=== PATIENT | female | born 1960 | race Caucasian/White ===

== ENCOUNTER → 2020-12-06 07:04 | Outpatient (CLI) | payer OTHER, MEDICAID, SELFPAY ==
[2020-12-06 08:36] LABS: Alanine Aminotransferase 21 IU/L (<35); Albumin 4.5 g/dL (3.5-5.0); Albumin Globulin Ratio 1.7 (1.0-2.8); Alkaline Phosphatase 68 U/L (38-126); Aspartate Aminotransferase 30 IU/L (14-36); BUN Creatinine Ratio 17.7 (6-22); Bilirubin Total 0.6 mg/dL (0.2-1.3); Blood Urea Nitrogen 11 mg/dL (7-17); Carbon Dioxide 32 mmol/L (22-32); Chloride 107 mmol/L (98-107); Cholesterol 218 mg/dL (140-199); Estimated Glomerular Filt Rate > 60.0 mL/min (>60); Globulin 2.7 g/dL (1.7-4.1); Glucose 106 mg/dL (70-100); HEMOLYSIS < 15 (0-50); Potassium 5.2 mmol/L (3.4-5.1); Sodium 139 mmol/L (137-145); Total Protein 7.2 g/dL (6.3-8.2); Triglycerides 63 mg/dL (35-150)
[2020-12-06 08:45] LABS: HDL Cholesterol 120 mg/dL (40-60); LDL Cholesterol Calculated 85 mg/dL (<100)
== END ==
PROVIDERS: PCP Registered Nurse; Referring Provider Registered Nurse; Visit Provider Registered Nurse
DX: I65.29 Occlusion and stenosis of unspecified carotid artery (principal); Z82.49 Family history of ischemic heart disease and other diseases of the circulatory system; R53.83 Other fatigue
CPT/HCPCS: 36415; 80053; 80061

== ENCOUNTER → 2020-12-08 07:01 | Outpatient (CLI) | payer OTHER, MEDICAID, SELFPAY ==
--- NOTE | 2020-12-08 07:03 | DI.US.S_ITS ---
PROCEDURE: US CAROTID DOPPLER BI INDICATIONS: POSSIBLE PLAQUE TECHNIQUE: Color and pulse Doppler interrogation was performed of both carotid systems, with image documentation and velocity measurements. COMPARISON: None. FINDINGS: Stenosis calculations are based on SRU (Society of Radiologists in Ultrasound) criteria. Right side: Common Carotid Artery PSV: - Distal: 89 cm/s Internal Carotid Artery PSV - 73 cm/s EDV- 34 cm/s External Carotid Artery PSV- Proximal: 87 cm/s ICA/CCA PSV- Ratio: 0.8 Lombardo scale imaging description: No plaque. Widely patent vessels. Percent internal carotid artery stenosis: None . Vertebral artery: Flow direction is antegrade. Left side: Common Carotid Artery PSV- Distal: 101 cm/s Internal Carotid Artery PSV- 74 cm/s EDV- 33 cm/s External Carotid Artery PSV- Proximal: 81 cm/s ICA/CCA PSV- Ratio: 0.7 Lombardo scale imaging description: No plaque. Widely patent vessel. Percent internal carotid artery stenosis: None . Vertebral artery: Flow direction is antegrade. IMPRESSION: Unremarkable carotid ultrasound. Dictated by: Avery Wyatt M.D. on 12/08/2020 at 8:51 Approved by: Avery Wyatt M.D. on 12/08/2020 at 8:54
== END ==
PROVIDERS: PCP Registered Nurse; Referring Provider Registered Nurse; Visit Provider Registered Nurse
DX: I65.29 Occlusion and stenosis of unspecified carotid artery (principal); Z82.49 Family history of ischemic heart disease and other diseases of the circulatory system
CPT/HCPCS: 93880

== ENCOUNTER 2021-06-06 17:34 | Emergency (ER) | payer OTHER, MEDICAID, SELFPAY ==
[2021-06-06 17:42] VITALS: BP 136/84; PULSE 104; RESP 18; TEMP 36.9; O2SAT 99; BMI 23.1
--- NOTE | 2021-06-06 18:11 | DI.CT.S_ITS ---
PROCEDURE: CT HEAD/BRAIN WO CON INDICATIONS: Hit on R side head with metal sprinkler TECHNIQUE: Noncontrast 4.5 mm thick angled axial sections acquired from the foramen magnum to the vertex, with coronal and sagittal reformats. For radiation dose reduction, the following was used: automated exposure control, adjustment of mA and/or kV according to patient size. COMPARISON: [facility], , CAROTID DOPPLER , 12/08/2020, 7:26. FINDINGS: Image quality: Excellent. CSF spaces: Basal cisterns are patent. No extra-axial fluid collections. The ventricles are symmetric in size and shape. Brain: No intracranial bleeds or masses. There is mild cerebral volume loss for age, with resultant ventricular and sulcal prominence. There are mild periventricular and deep white matter chronic small vessel ischemic changes. There is intracranial internal carotid artery atherosclerosis. Skull and face: Calvarium and visualized facial bones appear intact, without suspicious lesions. Sinuses: Visualized sinuses and mastoids are clear. IMPRESSION: 1. No acute intracranial abnormalities. Dictated by: Shanell Gore M.D. on 06/06/2021 at 17:32 Approved by: Shanell Gore M.D. on 06/06/2021 at 17:33
--- NOTE | 2021-06-06 20:52 | ED.HEATRA ---
HPI - Head Injury General Chief complaint: Head Injury Stated complaint: head injury Time Seen by Provider: 06/06/21 20:20 Source: patient Mode of arrival: Ambulatory Limitations: no limitations History of Present Illness HPI Narrative: [place]. Was picking up a sprinkler under a lot of water pressure and it was weeping around in the air and struck her on the right parietal scalp. No loss of consciousness. Is not on blood thinners. No nausea or vomiting no confusion no headache no vision changes. No numbness tingling or weakness or ataxia. Patient was concerned because her spouse had of a stroke. Patient very anxious. Related Data Home Medications Medication Instructions Recorded Confirmed No Known Home Medications 12/04/20 12/04/20 Allergies Allergy/AdvReac Type Severity Reaction Status Date / Time No Known Drug Allergies Allergy Unverified 12/04/20 08:07 Review of Systems Review of Systems Narrative: GENERAL: Denies chills, fatigue, malaise, fever, sweats. HEENT: Denies sinus pain, ear pain, sore throat RESPIRATORY: Denies dyspnea, cough CARDIOVASCULAR: Denies chest pain, palpitations GASTROINTESTINAL: Denies nausea, vomiting, abdominal pain : Denies dysuria, frequency, hematuria MUSCULOSKELETAL: Complaint muscle or bony pain SKIN: Denies rash, skin lesions NEUROLOGIC: Denies weakness, numbness Patient History Medical History Fractures (~2010) Osteopenia (~2009) Surgical History Anesthesia History of surgery on arm (~07/2011) Family History Father Hypertension Atrial fibrillation Mother Osteoporosis Social History Smoking Status: Never smoker Smoking Status: Never smoker alcohol intake frequency: a few times a week Alcohol type: wine Substance Use Type: does not use Exam Narrative Exam Narrative: GENERAL: in no distress, not toxic not dyspneic HEAD: Normocephalic. Mild tenderness and edema to the right parietal scalp. Skin is intact otherwise. No bruising. No crepitus or step-off. EYES: Pupils equal round No scleral icterus. No injection no discharge ENT: Mucous membranes moist. NECK: Trachea midline. No midline tenderness or step-off. CARDIOVASCULAR: Regular rate and rhythm without murmurs RESPIRATORY: Clear to auscultation. Breath sounds equal bilaterally. No wheezes, rales, or rhonchi. GASTROINTESTINAL: Abdomen soft, non-tender EXTREMITIES: No gross deformities. BACK: No flank tenderness. NEURO: AOx4. Clear speech no facial droop steady self gait no foot drop. Light touch intact to bilateral face hands and feet. 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 Strong bilateral patellar reflexes. Steady Romberg, negative pronator drift SKIN: Warm and dry PSYCH: Not anxious, is cooperative Initial Vital Signs Initial Vital Signs: Vital Signs Temperature 98.4 F 06/06/21 17:42 Pulse Rate 104 H 06/06/21 17:42 Respiratory Rate 18 06/06/21 17:42 Blood Pressure 136/84 06/06/21 17:42 Pulse Oximetry 99 06/06/21 17:42 Course Course Course Narrative: No new issues during course of stay. Orders Ordered: ED Orders 06/06/21 18:11 CT head/brain wo con Stat Reevaluation(s) Reevaluation #1: Reviewed results with patient. Agrees with treatment plan. She desires discharge home. Time: 21:03 Vital Signs Vital signs: Vital Signs - 8 hr 06/06/21 17:42 Temperature 98.4 F Pulse Rate 104 H Respiratory Rate 18 Blood Pressure 136/84 Pulse Oximetry 99 MDM - Head Injury Differential Diagnosis Differential diagnosis: Likely concussion without loss of consciousness, epidural hematoma, closed head injury, subdural hematoma and other (Scalp contusion) Imaging Data CT scan - head: Radiologist's Impression: [address] [id number] Scan ReportSigned Patient: Carolina Elder KMR#: [id number]: [id number]:[id number]/Sex: 61 / FDate of Service: 06/06/21Loc: EDAccession Number: [id number] Procedure: CT head/brain wo con Ordering Provider: Asif Major MD PROCEDURE: CT HEAD/BRAIN WO CON INDICATIONS: Hit on R side head with metal sprinkler TECHNIQUE: Noncontrast 4.5 mm thick angled axial sections acquired from the foramen magnum to the vertex, with coronal and sagittal reformats. For radiation dose reduction, the following was used: automated exposure control, adjustment of mA and/or kV according to patient size. COMPARISON: [facility], , CAROTID DOPPLER , 12/08/2020, 7:26. FINDINGS: Image quality: Excellent. CSF spaces: Basal cisterns are patent. No extra-axial fluid collections. The ventricles are symmetric in size and shape. Brain: No intracranial bleeds or masses. There is mild cerebral volume loss for age, with resultant ventricular and sulcal prominence. There are mild periventricular and deep white matter chronic small vessel ischemic changes. There is intracranial internal carotid artery atherosclerosis. Skull and face: Calvarium and visualized facial bones appear intact, without suspicious lesions. Sinuses: Visualized sinuses and mastoids are clear. IMPRESSION: 1. No acute intracranial abnormalities. Dictated by: Shanell Gore M.D. on 06/06/2021 at 17:32 Approved by: Shanell Gore M.D. on 06/06/2021 at 17:33 [facility] Narrative Medical decision making narrative: Appropriate for discharge home. Exam and imaging reassuring. Blood pressure noted however patient states she is very anxious. She has to get back to her 85-year-old mother to take care of her at home. Neurovascular intact. No altered mental status. Return precautions reviewed with patient. Discharge Plan Departure Patient Disposition: Home Clinical Impression: Contusion of scalp Qualifiers: Encounter type: initial encounter Qualified Code(s): S00.03XA - Contusion of scalp, initial encounter Instructions: DI for Contusion, DI for Closed Head Injury Activity Restrictions/Additional Instructions: Return if worsening questions or concerns. See family doctor for recheck of your blood pressure in a week. May use ibuprofen or Tylenol for pain to the scalp. May also use cool packs to scalp for reducing swelling. Prescriptions: No Action No Known Home Medications RF: 0 Referrals: Kayy Early ARNP [Primary Care Provider] -
[2021-06-06 21:02] VITALS: BP 162/82; PULSE 89; RESP 18; O2SAT 99
== END 2021-06-06 21:06 | disposition home or self-care (01) ==
PROVIDERS: Emergency Provider Emergency Medicine; PCP Registered Nurse
DX: S00.03XA Contusion of scalp, initial encounter (principal); W22.8XXA Striking against or struck by other objects, initial encounter; Y92.79 Other farm location as the place of occurrence of the external cause
CPT/HCPCS: 70450; 99281; 99284

== ENCOUNTER → 2022-01-10 06:55 | Outpatient (CLI) | payer OTHER, MEDICAID, SELFPAY ==
[2022-01-10 08:18] LABS: Alanine Aminotransferase 20 IU/L (<35); Albumin 4.7 g/dL (3.5-5.0); Albumin Globulin Ratio 1.5 (1.0-2.8); Alkaline Phosphatase 64 U/L (38-126); Aspartate Aminotransferase 32 IU/L (14-36); BUN Creatinine Ratio 20.3 (6-22); Bilirubin Total 0.8 mg/dL (0.2-1.3); Blood Urea Nitrogen 13 mg/dL (7-17); Calcium 9.4 mg/dL (8.4-10.2); Carbon Dioxide 32 mmol/L (22-32); Chloride 104 mmol/L (98-107); Cholesterol 217 mg/dL (140-199); Estimated Glomerular Filt Rate > 60.0 mL/min (>60); Globulin 3.1 g/dL (1.7-4.1); Glucose 103 mg/dL (80-110); HDL Cholesterol 106 mg/dL (40-60); HEMOLYSIS < 15 (0-50); LDL Cholesterol Calculated 97 mg/dL (<100); Potassium 3.9 mmol/L (3.4-5.1); Sodium 140 mmol/L (137-145); Total Protein 7.8 g/dL (6.3-8.2); Triglycerides 69 mg/dL (35-150)
== END ==
PROVIDERS: PCP Registered Nurse; Referring Provider Registered Nurse; Visit Provider Registered Nurse
DX: E78.5 Hyperlipidemia, unspecified (principal); R89.9 Unspecified abnormal finding in specimens from other organs, systems and tissues; Z82.49 Family history of ischemic heart disease and other diseases of the circulatory system
CPT/HCPCS: 36415; 80053; 80061

== ENCOUNTER → 2022-07-08 11:13 | Outpatient (CLI) | payer OTHER, MEDICAID, SELFPAY | PROVIDERS: PCP Registered Nurse; Visit Provider Registered Nurse | DX: R30.0 Dysuria (principal) | CPT/HCPCS: 81002; 87077; 87086; 87186 ==

== ENCOUNTER → 2022-07-25 11:08 | Outpatient (CLI) | payer OTHER, MEDICAID, SELFPAY ==
[2022-07-25 12:42] LABS: Bilirubin Urine UA NEGATIVE (NEGATIVE); Color Urine UA YELLOW; Glucose Urine UA NEGATIVE (Negative); Ketones Urine UA NEGATIVE (NEGATIVE); Leukocyte Esterase Urine UA 2+ (NEGATIVE); Nitrite Urine UA NEGATIVE (Negative); Occult Blood Urine UA 3+ (Negative); Protein Urine UA NEGATIVE (Negative); Specific Gravity Urine UA 1.015 (1.000-1.035); Urobilinogen Urine UA 0.2 E.U./dL (0.2)
[2022-07-25 13:02] LABS: Amorphous Sediment Urine 1+; Appearance Urine UA Slightly Cloudy; RBC Urine 30-100/HPF (0-5/HPF); Squamous Epithelial Cell Urine 1-5 /HPF (0-5/HPF); WBC Urine 30-100/HPF (0-5/HPF); pH Urine UA 5.5 (4.5-8.0)
[2022-07-25 13:03] LABS: Bacteria Urine Occasional (0-1); Culture Indicated Urine Specimen Cultured; Mucus Urine 1+ (Negative)
== END ==
PROVIDERS: PCP Registered Nurse; Referring Provider Family Medicine; Visit Provider Family Medicine
DX: N30.01 Acute cystitis with hematuria (principal)
CPT/HCPCS: 81001; 87086

== ENCOUNTER → 2022-08-23 12:36 | Outpatient (CLI) | payer OTHER, MEDICAID, SELFPAY ==
[2022-08-23 13:17] LABS: Appearance Urine UA CLEAR; Bilirubin Urine UA NEGATIVE (NEGATIVE); Color Urine UA YELLOW; Glucose Urine UA NEGATIVE (Negative); Ketones Urine UA NEGATIVE (NEGATIVE); Leukocyte Esterase Urine UA 2+ (NEGATIVE); Nitrite Urine UA NEGATIVE (Negative); Occult Blood Urine UA 3+ (Negative); Protein Urine UA TRACE (Negative); Specific Gravity Urine UA <=1.005 (1.000-1.035); Urobilinogen Urine UA 0.2 E.U./dL (0.2)
[2022-08-23 13:33] LABS: Bacteria Urine Few (2-10); Culture Indicated Urine Specimen Cultured; RBC Urine 10-30/HPF (0-5/HPF); Squamous Epithelial Cell Urine 0-1 /HPF (0-5/HPF); WBC Urine 10-30/HPF (0-5/HPF)
== END ==
PROVIDERS: PCP Family Medicine; Referring Provider Family Medicine; Visit Provider Family Medicine
DX: N30.01 Acute cystitis with hematuria (principal)
CPT/HCPCS: 81001; 87086

== ENCOUNTER → 2022-09-17 08:18 | Outpatient (CLI) | payer OTHER, MEDICAID, SELFPAY | PROVIDERS: PCP Family Medicine; Visit Provider Urology | DX: N39.0 Urinary tract infection, site not specified (principal) | CPT/HCPCS: 87086 ==

== ENCOUNTER → 2022-09-17 12:08 | Outpatient (CLI) | payer OTHER, MEDICAID, SELFPAY ==
[2022-09-17 15:59] LABS: BUN Creatinine Ratio 15.5 (6-22); Blood Urea Nitrogen 9 mg/dL (7-17); Calcium 9.6 mg/dL (8.4-10.2); Carbon Dioxide 27 mmol/L (22-32); Chloride 103 mmol/L (98-107); Estimated Glomerular Filt Rate > 60 mL/min (>60); Glucose 100 mg/dL (80-110); HEMOLYSIS < 15 (0-50); Potassium 4.3 mmol/L (3.4-5.1); Sodium 139 mmol/L (137-145)
== END ==
PROVIDERS: Urology; PCP Family Medicine; Referring Provider Specialist; Visit Provider Specialist
DX: N30.01 Acute cystitis with hematuria (principal); R89.9 Unspecified abnormal finding in specimens from other organs, systems and tissues
CPT/HCPCS: 36415; 80048; 81002; 87077; 87086; 87186; 99214

== ENCOUNTER → 2022-09-25 12:45 | Outpatient (CLI) | payer OTHER, MEDICAID, SELFPAY ==
--- NOTE | 2022-09-25 12:47 | DI.CT.S_ITS ---
PROCEDURE: CT IVP A/P W/WO INDICATIONS: Recurring urinary tract infections/microscopic hematuria TECHNIQUE: Optional 5 mm thick noncontrast images acquired from the diaphragm to the symphysis pubis. After the administration of intravenous contrast, 5 mm thick images acquired from the diaphragm to the symphysis pubis after a 10-minute delay. 2 mm thick coronal and sagittal reformats were then performed of the kidneys and ureters. For radiation dose reduction, the following was used: automated exposure control, adjustment of mA and/or kV according to patient size. COMPARISON: None. FINDINGS: Image quality: Excellent. Lung bases: Lung bases are clear. Heart size is normal. Urinary system: Both kidneys are normal in size. There is a 1.1 cm calculus within the right renal pelvis which measures approximately 900 Hounsfield units in density. There is mild right pelviectasis. No left nephrolithiasis. The kidneys demonstrate symmetric enhancement bilaterally. No suspicious mass lesions. The ureters demonstrate normal course and caliber. No ureterolithiasis. There is mild thickening of the urothelium of the right renal pelvis. No bladder calculi. Other solid organs: Liver is normal in size and enhancement. Gallbladder is mildly contracted. . Biliary system is non dilated. Pancreas enhances normally. Spleen is normal in size and enhancement. No adrenal nodules. Peritoneum and bowel: Bowel loops demonstrate normal wall thickness and caliber. There are scattered sigmoid diverticula. No evidence for diverticulitis. The appendix is thin walled and gas filled. No free fluid or air. Nodes and vessels: No retroperitoneal or mesenteric adenopathy by size criteria. Aorta and inferior vena cava are normal in size. Abdominal wall: No ventral hernias. Pelvis: No pathologic free pelvic fluid. No inguinal hernias or adenopathy. Bones: No suspicious bony lesions. No vertebral body compression fractures. There are displaced bilateral L5-S1 pars interarticularis defects with grade 2 spondylolisthesis. IMPRESSION: 1. Nonobstructing right nephrolithiasis. No left nephrolithiasis, hydroureter, ureterolithiasis, or bladder calculi. 2. Thickening of the urothelium of the right pelvis which may be reactive and associated with the renal pelvic calculus. However, neoplasm cannot be excluded. 3. No suspicious enhancement or renal mass lesions. 4. Diverticulosis. No acute diverticulitis. Normal appendix. 5. Spondylolysis and spondylolisthesis at L5-S1. Dictated by: Kimi Solorzano M.D. on 09/25/2022 at 15:32 Approved by: Kimi Solorzano M.D. on 09/25/2022 at 15:37
== END ==
PROVIDERS: PCP Family Medicine; Referring Provider Urology; Visit Provider Urology
DX: N39.0 Urinary tract infection, site not specified (principal); R31.9 Hematuria, unspecified; N20.0 Calculus of kidney; K57.90 Diverticulosis of intestine, part unspecified, without perforation or abscess without bleeding; M47.817 Spondylosis without myelopathy or radiculopathy, lumbosacral region; M43.17 Spondylolisthesis, lumbosacral region
CPT/HCPCS: 74178; Q9967

== ENCOUNTER → 2022-09-27 15:04 | Outpatient (CLI) | payer OTHER, MEDICAID, SELFPAY ==
--- NOTE | 2022-09-27 16:01 | DI.RAD.S_ITS ---
PROCEDURE: XR KUB INDICATIONS: Right kidney stone TECHNIQUE: One view of the abdomen acquired. COMPARISON: [facility], CT, CT IVP A/P W/WO, 09/25/2022, 12:51. FINDINGS: Surgical changes and devices: None. Bowel: Bowel gas pattern is normal except for generalized colonic obstipation. Soft tissues: No suspicious abdominal calcifications. Visualized solid organ contours appear normal in size. Bones: No suspicious bony lesions. IMPRESSION: Generalized colonic obstipation. The right-sided urinary tract stone seen by CT scanning 2 days ago cannot be clearly visualized likely due to overlying colonic obstipation. What appears to be a left-sided pelvic phlebolith is noted, rounded and likely previously present on CT scanning. Dictated by: Bert Stern M.D. on 09/27/2022 at 16:26 Approved by: Bert Stern M.D. on 09/27/2022 at 16:27
== END ==
PROVIDERS: PCP Family Medicine; Referring Provider Urology; Visit Provider Urology
DX: N30.01 Acute cystitis with hematuria (principal); N20.0 Calculus of kidney; K59.09 Other constipation; N95.2 Postmenopausal atrophic vaginitis
CPT/HCPCS: 74018; 81002; 87086; 99214

== ENCOUNTER → 2022-10-02 07:41 | Outpatient (CLI) | payer OTHER, MEDICAID, SELFPAY ==
--- NOTE | 2022-10-02 07:42 | DI.RAD.S_ITS ---
PROCEDURE: XR KUB INDICATIONS: kidney stone TECHNIQUE: One view of the abdomen acquired. COMPARISON: [facility], CT, CT IVP A/P W/WO, 09/25/2022, 12:51. [facility], CR, XR KUB, 09/27/2022, 16:12. FINDINGS: 1.6 cm calcification projecting over the right renal pelvis may represent the right renal pelvis stone visualized on recent CT. Nonobstructive bowel gas pattern. IMPRESSION: 1.6 cm calcification projecting over the right renal pelvis may represent the right renal pelvis stone visualized on recent CT. Dictated by: Elvis Lujan M.D. on 10/02/2022 at 11:34 Approved by: Elvis Lujan M.D. on 10/02/2022 at 11:38
== END ==
PROVIDERS: PCP Family Medicine; Referring Provider Urology; Visit Provider Urology
DX: N20.0 Calculus of kidney (principal); N30.01 Acute cystitis with hematuria
CPT/HCPCS: 74018

== ENCOUNTER → 2022-10-07 09:44 | Outpatient (CLI) | payer OTHER, MEDICAID, SELFPAY ==
[2022-10-07 11:03] LABS: COVID19 -Nasal RAPID POSITIVE (Negative)
== END ==
PROVIDERS: PCP Family Medicine; Visit Provider Urology
DX: Z20.822 Contact with and (suspected) exposure to COVID-19 (principal)
CPT/HCPCS: 87635; C9803

== ENCOUNTER 2022-10-08 10:57 | Day surgery (SDC) | payer OTHER, MEDICAID, SELFPAY ==
[2022-10-07 10:49] VITALS: BMI 23.3
--- NOTE | 2022-10-08 | DI.RAD.S_ITS ---
PROCEDURE: XR ABDOMEN 1V INDICATIONS: RIGHT STENT PLACEMENT TECHNIQUE: Single intra-operative images acquired by the Urology service. COMPARISON: None. FINDINGS: Single fluoroscopic spot image of the right abdomen demonstrates a pigtail catheter to the right of the spine. IMPRESSION: Intraoperative fluoroscopy for right stent placement. Dictated by: Dianna Fairbanks M.D. on 10/09/2022 at 11:17 Approved by: Dianna Fairbanks M.D. on 10/09/2022 at 11:18
--- NOTE | 2022-10-08 10:51 | SUR.OPER ---
Lithotomy on padded OR bed, head on pillow, arms secured on padded arm boards at <90 degrees abduction. Legs secured in padded yellow fins stirrups.
[2022-10-08 11:23] VITALS: BP 141/85; PULSE 122; RESP 14; TEMP 37.7; O2SAT 96; BMI 23.3
[2022-10-08] MEDS: LACTATED RINGERS 1,000 ML 21 ML IV (11:36)
--- NOTE | 2022-10-08 11:38 | SUR.PREOP ---
Patient tachycardic at 117 to 125 normal sinus; temporal temp 100.4; oral temp 100, rechecked oral temp 99; Dr Harley aware of temperature and speaking with anesthesia. Rapid Covid completed at bedside due to positive COVID swab on 10/07/2022. Per Dr Harley, will wait for covid results and will reassess temperature at that time. Patient denies any symptoms. COVID precautions in place.
[2022-10-08 11:46] LABS: COVID19 -Nasal RAPID Negative (Negative)
--- NOTE | 2022-10-08 12:05 | PM.PREOP ---
Pre-operative Note COVID-19 COVID-19 status: Positive Result date/Date tested (Pos, Neg/Pending): 10/07/22 Criteria for continued procedure: Non-surgical alternatives not available or appropriate per current SOC Interval Note History & Physical reviewed/Exam performed by Physician: Yes Changes to H&P: No
[2022-10-08] MEDS: cefTRIAXone 2,000 MG in SODIUM CHLORIDE 0.9% 100 ML 200 MG IV (12:25)
--- NOTE | 2022-10-08 12:55 | P.OP_ITS ---
Procedure & Clinicians Procedure: Cystoscopy with right ureteral stent placement Same procedure as scheduled: Yes Indications: 62-year-old female with a large right renal calculus presents at this time for cystoscopy with right ureteral stent placement. Surgeon: Asif Harley Click Yes if Unassisted: Yes Anesthesia Type: General Operative Notes Findings: Findings: External genitalia normal, urethra normal along its length with normal mucosa. Ureteral orifices in normal position with clear efflux. The bladder exhibited some changes of mild cystitis the patient has had a recent urinary tract infection that has been treated. Stone is noted in the right renal pelvis and no other abnormality is noted. A 7 Peruvian by multi length stent his left in good position in the right collecting system without a string. Closure Type: not applicable Specimen(s): none sent Prosthetic devices, grafts, tissues, transplants, or devices: Seven Peruvian by multi length ureteral stent right collecting system no string Estimated Blood Loss (mL): 0 Procedure in detail: Procedure in detail: After COVID testing and extensive discussion with anesthesia was agreed that we could proceed with the procedure today. Informed consent had been obtained, the patient was identified and brought to the operating room where she was placed in a supine position on the table. Patient then had anesthesia induced and maintained. Ensuring an adequate level of anesthesia she was transitioned to the lithotomy position where she was prepped, draped, prepared for Transurethral procedure. After ensuring an adequate level of anesthesia and time-out a 21 Peruvian cystoscope was passed through the urethra into the bladder where cystoscopy was performed with the 30 and 70 degree lens. The right ureteral orifice was identified and a wire passed up and into the collecting system under fluoroscopic guidance. Stent was then passed over the wire in a coaxial fashion position in the renal pelvis under fluoroscopic visualization the bladder under direct vision the grasping forceps was inserted and the stent was grasped with a nylon harness was removed leaving the stent in good position confirmed by direct vision in the bladder and by fluoroscopic visualization in the renal pelvis. The bladder was then drained the scope was removed the patient was awakened having tolerated the procedure well to follow- up my office in approximately 10 days. There were no complications Complications: none Post-operative Condition: stable Disposition: PACU Plan for aftercare: Patient to be discharged to home to follow up my office in approximately 10 days patient will after 2-3 weeks go onto extracorporeal shockwave lithotripsy of her stone unless other clinical situation intervenes.
[2022-10-08 13:08] VITALS: BP 123/78; PULSE 100; RESP 16; TEMP 36.1; TEMP 37; O2SAT 98
[2022-10-08 13:15] VITALS: BP 118/72; PULSE 100; RESP 20; O2SAT 100
== END 2022-10-08 13:37 | disposition home or self-care (01) ==
PROVIDERS: PCP Family Medicine; Referring Provider Urology; Visit Provider Urology
PROC: (CPT 52332; principal; 2022-10-08 12:30)
DX: N20.0 Calculus of kidney (principal); N39.0 Urinary tract infection, site not specified; R31.9 Hematuria, unspecified; Z20.822 Contact with and (suspected) exposure to COVID-19; N95.2 Postmenopausal atrophic vaginitis
CPT/HCPCS: 52332; 74018; 76000; 87635; C9803; J0696; J1100; J2250; J2405; J2704; J3010

== ENCOUNTER 2022-10-12 10:38 | Emergency (ER) | payer OTHER, MEDICAID, SELFPAY ==
[2022-10-12 10:53] VITALS: BP 168/82; PULSE 80; RESP 14; TEMP 36.8; O2SAT 99
--- NOTE | 2022-10-12 12:25 | DI.US.S_ITS ---
PROCEDURE: US PERIPH VENOUS UP EXTREM RT INDICATIONS: tenosynovitis? DVT? thrombophlebitis? recent IV TECHNIQUE: Real-time imaging, as well as color and pulse Doppler interrogation, was performed of the right upper extremity upper extremity deep veins from the inferior neck to the antecubital fossa. COMPARISON: None. FINDINGS: The internal jugular vein, visualized portions of the subclavian vein, axillary, and brachial veins are free of intraluminal thrombus. Where physically possible, the veins are normally compressible. Color and pulse Doppler demonstrate normal intraluminal flow, with expected phasicity and pulsatility. Additional scanning of the cephalic and basilic veins of the superficial system demonstrate normal compressibility, without thrombus. IMPRESSION: No findings of deep venous thrombosis or for thrombophlebitis. Dictated by: Patrick Clements M.D. on 10/12/2022 at 13:57 Approved by: Patrick Clements M.D. on 10/12/2022 at 13:57
--- NOTE | 2022-10-12 12:39 | ED.EXTPRO ---
HPI - Extremity Problem <Yamileth Sanchez Joselin, [facility] - Last Filed: 10/12/22 15:13> General Chief complaint: Extremity Problem,Nontraumatic Stated complaint: post op pain/moving up wrist/arm/neck x2days Time Seen by Provider: 10/12/22 12:01 Source: patient Mode of arrival: Ambulatory History of Present Illness HPI Narrative: This is a 62-year-old female who presents to the emergency department 4 days after right-sided ureter stent that was placed by Dr. Harley for upcoming right lithotripsy for Proteus stone infection of struvite. She is not currently on antibiotics. Patient presents with concern about a right forearm IV site with a failed attempt site causing swelling and ecchymosis to the volar aspect of her forearm. Per Dr. Harley's note and follow-up visit on 09/27/2022 patient was prescribed estradiol cream for atrophic vaginitis, has ongoing right renal calculus causing recurrent urinary tract infections with hematuria. This is secondary to Proteus infection grown out on her urine cultures she did not have any growth to her urine culture on 09/27/2022. On 09/17/2022 she grew Proteus mirabilis which shows multiple drug resistance with only susceptibility to cefepime, ceftazidime, ceftriaxone, ertapenem, and Zosyn. Patient denies any urinary frequency, urgency, dysuria, or worsening urine symptoms. She comes in today for concern about ascending right forearm pain which she attributes to this IV stick and is concerned about nerve damage and a blood clot. She denies any progressive swelling to her right hand or fingers, denies any sensation deficit, states 2 days ago she had swelling over the volar aspect of her right wrist causing decreased flexion only due to pain. On chart review it appears that patient received 2 g of ceftriaxone on 10/08/2022 and has not been on antibiotics since. Also notable on chart review is patient tested COVID positive on 10/07/2022. She denies any symptoms of COVID and had a test that was negative the next day. Taken from Dr. Harley's note on 09/27/2022. Right kidney stone: ?Status:?Acute ?Code(s): N20.0 - Calculus of kidney (2) Blood in urine: ?Status:?Acute ?Code(s): R31.9 - Hematuria, unspecified ?Qualifiers: ?Hematuria type:?unspecified type? Qualified Code(s):?R31.9 - Hematuria, unspecified (3) UTI (urinary tract infection): ?Status:?Acute ?Code(s): N39.0 - Urinary tract infection, site not specified ?Qualifiers: ?Urinary tract infection type:?acute cystitis??Hematuria presence:?with hematuria? Qualified Code(s):?N30.01 - Acute cystitis with hematuria (4) Atrophic vaginitis: ?Status:?Acute ?Code(s): N95.2 - Postmenopausal atrophic vaginitis Plan Assessment and plan: Right renal calculus likely the cause of her recurring urinary tract infections and hematuria.? Patient has had Proteus I am somewhat suspicious this may be an infection stone so we will be very diligent with the antibiotics for this patient.? She will be scheduled for cystoscopy with stent placement and then in a couple of weeks after the ureters dilated extracorporeal shockwave lithotripsy. ? ? ? Medications: New estradiol 0.01%(0.1mg/gram) (Estrace) ?? nightly for 1st 12 nights, then reduce to twice weekly for lifetime. 1 g? vaginal 2XW 42.5 grams 3RF ? Orders: Orders XR KUB 09/27/22 N20.0 - Calculus of kidney ? POC Urine Dip 09/27/22 N39.0 - Urinary tract infection, site not specified, R31.9 - Hematuria, unspecified ? Urine Culture 09/27/22 N39.0 - Urinary tract infection, site not specified, R31.9 - Hematuria, unspecified ? EC #: [id number] TOMMY: 09/17/22 STATUS: COMP REQ #: [id number] SPDESC: RECD: 09/17/22 [facility] DR: Asif Harley MD SOURCE: Urine CC ENTR: 09/17/[address] [facility] [address]: Zak Chu MD FAX TO: ORDERED: URINE CULTURE COMMENTS: No collection time noted; Received time used as collection time. Procedure Result Verified Site Urine Culture Final 09/19/22 Organism 1 Proteus mirabilis [place] Count 40,000 - 50,000 CFU/ml Action to follow No Further Workup 1. Proteus mirabilis M.I.C. RX --------- --- * Ampicillin >=32 R * Ampicillin/Sulbactam >=32 R * Cefazolin 16 R * Cefepime <=1 S * Ceftazidime <=1 S * Ceftriaxone <=1 S * Ciprofloxacin >=4 R * Ertapenem <=0.5 S * Gentamicin >=16 R * Imipenem 2 I * Levofloxacin >=8 R * Nitrofurantoin 128 R * Tobramycin >=16 R * Trimethoprim/Sulfamethoxazole >=320 R * Piperacillin/Tazobactam <=4 S SPEC #: [id number] TOMMY: 09/27/22 STATUS: COMP REQ #: [id number] SPDESC: RECD: 09/27/[address]: Asif Harley MD SOURCE: Urine CC ENTR: 09/27/[address] [facility] [address]: Zak Chu MD FAX TO: ORDERED: URINE CULTURE Procedure Result Verified Site Urine Culture Final 09/29/22 No growth. END OF REPORT Related Data Home Medications Medication Instructions Recorded Confirmed cranberry 400 mg capsule 400 mg PO BID 09/17/22 10/07/22 multivitamin 1 tab PO DAILY 09/17/22 10/07/22 Lactobacillus acidophilus 10 10,000 mmu cells PO DAILY 10/07/22 10/07/22 billion cell capsule (Probiotic) ascorbic acid (vitamin C) 500 mg 500 mg PO DAILY 10/07/22 10/07/22 capsule d-mannose 500 mg capsule 500 mg PO DAILY 10/07/22 10/07/22 Previous Rx's Medication Instructions Recorded estradiol 0.01% (0.1 mg/gram) 1 g vaginal 2XW #42.5 grams 09/27/22 vaginal cream (Estrace) oxybutynin chloride 5 mg tablet 5 mg PO TID PRN bladder spasms #30 10/08/22 tabs phenazopyridine 200 mg tablet 200 mg PO TID PRN Bladder 10/08/22 (Pyridium) irritation #30 tabs diclofenac sodium 1 % topical gel 2 g topical QID #100 grams 10/12/22 fosfomycin tromethamine 3 gram 1 packet PO Q3D PRN proteus 10/12/22 oral packet infection 3 doses #3 ea hydrocodone 5 mg-acetaminophen 325 1 tab PO TID PRN pain #14 tabs 10/12/22 mg tablet ibuprofen 600 mg tablet 600 mg PO Q8H PRN pain #30 tabs 10/12/22 Allergies Allergy/AdvReac Type Severity Reaction Status Date / Time No Known Drug Allergies Allergy Verified 10/12/22 10:55 Review of Systems <KEITH Brown - Last Filed: 10/12/22 15:13> Review of Systems Narrative: Review of systems is negative for acute abnormalities unless otherwise noted in HPI Patient History <KEITH Brown - Last Filed: 10/12/22 15:13> Medical History Abnormal laboratory test result Atrophic vaginitis Blood in urine Fractures (~2010) Hyperlipidemia Osteopenia (~2009) Right forearm pain Right kidney stone Right shoulder pain Skin spots, red Surgical History Anesthesia H/O tubal ligation History of surgery on arm (~07/2011) Family History Father Hypertension Atrial fibrillation Mother Osteoporosis Social History marital status: number of children: 0 Smoking Status: Never smoker alcohol intake: current Type(s) of exercise: walking frequency: 1-2 times per week Smoking Status: Never smoker alcohol intake frequency: a few times a week Alcohol type: wine Substance Use Type: does not use Exam <KEITH Brown - Last Filed: 10/12/22 15:13> Narrative Exam Narrative: Reviewed vitals signs and nursing notes. General: cooperative, comfortable, anxious, in no acute distress, well groomed HEENT: symmetrical facial expressions, moist mucous membranes Cardiovascular: regular rate and rhythm, no peripheral edema, warm extremities Respiratory: normal effort, able to speak in complete sentences, without wheezing, stridor, or abnormal breath sounds. No retractions or tachypnea. GI: abdomen soft, nontender to palpation, nondistended, without masses, rebound tenderness or exquisite tenderness with exam. Without flank tenderness bilaterally MSK: moves all extremities, neurovascularly intact, no weakness, normal tone, ecchymosis without erythema or fluctuance over her volar right forearm, without streaking erythema proximally, without rash on her flank, without ecchymosis in her shoulder or upper arm, no hematoma, patient has full range of motion of her shoulder, elbow, wrist and fingers without deficit or sensation deficit. Skin: brisk capillary refill, without pallor or erythema Neuro: normal speech and cognition, A&O x3, ambulatory, clear speech Psych: mental status is grossly normal, congruent mood, normal affect, pleasant and cooperative Initial Vital Signs Initial Vital Signs: Vital Signs Temperature 98.3 F 10/12/22 10:53 Pulse Rate 80 10/12/22 10:53 Respiratory Rate 14 10/12/22 10:53 Blood Pressure 168/82 H 10/12/22 10:53 Pulse Oximetry 99 10/12/22 10:53 Oxygen Delivery Method 10/12/22 10:53 <Maddison Davies DO - Last Filed: 10/14/22 12:23> Initial Vital Signs Initial Vital Signs: Vital Signs Temperature 98.3 F 10/12/22 10:53 Pulse Rate 80 10/12/22 10:53 Respiratory Rate 14 10/12/22 10:53 Blood Pressure 168/82 H 10/12/22 10:53 Pulse Oximetry 99 10/12/22 10:53 Oxygen Delivery Method 10/12/22 10:53 Course <KEITH Brown - Last Filed: 10/12/22 15:13> Course Course Narrative: Age-Adjusted D-dimer for Venous Thromboembolism (VTE) from [email or web address] on 10/12/2022 All calculations should be rechecked by clinician prior to use RESULT SUMMARY: 610 ?g/L Age-adjusted D-dimer cutoff, FEU VTE possible Reported D-dimer is greater than cutoff; consider confirmatory testing with CTA or V/Q scan INPUTS: Age ?> 62 years D-dimer level reported by lab ?> 616 ?g/L D-dimer unit type ?> 1 = FEU (unadjusted cutoff typically ~500 or 0.50) Patient had recent instrumentation, not clinically as significant Orders Ordered: Discontinued Medications Acetaminophen (Acetaminophen 325 Mg Tablet) 650 mg PO NOW ONE Stop: 10/12/22 12:28 Last Admin: 10/12/22 14:28 Dose: 650 mg Documented By: NR Ceftriaxone Sodium 2,000 mg/ (Sodium Chloride) 100 mls @ 200 mls/hr IV NOW ONE Stop: 10/12/22 13:48 Last Infusion: 10/12/22 15:51 Dose: 0 mls/hr Documented By: Admin: 10/12/22 14:29 Dose: 200 mls/hr Documented By: NR Ketorolac Tromethamine (Ketorolac 30 Mg/Ml Vial) 15 mg IM NOW ONE Stop: 10/12/22 12:21 Last Admin: 10/12/22 14:34 Dose: Not Given Documented By: NR Ketorolac Tromethamine (Ketorolac 30 Mg/Ml Vial) 15 mg IV NOW ONE Stop: 10/12/22 13:50 Last Admin: 10/12/22 14:29 Dose: 15 mg Documented By: NR Consultations Consultation #1: Consultation with Dr. Hollis who was brought up to date on patient's recent history with Dr. Harley with her recent cystoscopy and ureteral placement, patient received 2 g of ceftriaxone during that procedure [address] Harley, her urine culture did not have any growth. Vital Signs Vital signs: Vital Signs - 8 hr 10/12/22 10:53 10/12/22 15:01 Temperature 98.3 F Pulse Rate 80 85 Respiratory Rate 14 20 Blood Pressure 168/82 H 114/69 Pulse Oximetry 99 97 Oxygen Delivery Method Room Air Room Air <Maddison Davies, DO - Last Filed: 10/14/22 12:23> Orders Ordered: Discontinued Medications Acetaminophen (Acetaminophen 325 Mg Tablet) 650 mg PO NOW ONE Stop: 10/12/22 12:28 Last Admin: 10/12/22 14:28 Dose: 650 mg Documented By: NR Ceftriaxone Sodium 2,000 mg/ (Sodium Chloride) 100 mls @ 200 mls/hr IV NOW ONE Stop: 10/12/22 13:48 Last Infusion: 10/12/22 15:51 Dose: 0 mls/hr Documented By: Admin: 12/03/22 14:29 Dose: 200 mls/hr Documented By: OSVALDO Ketorolac Tromethamine (Ketorolac 30 Mg/Ml Vial) 15 mg IM NOW ONE Stop: 10/12/22 12:21 Last Admin: 10/12/22 14:34 Dose: Not Given Documented By: NR Ketorolac Tromethamine (Ketorolac 30 Mg/Ml Vial) 15 mg IV NOW ONE Stop: 10/12/22 13:50 Last Admin: 10/12/22 14:29 Dose: 15 mg Documented By: NR Vital Signs Vital signs: Vital Signs - 8 hr 10/12/22 10:53 10/12/22 15:01 Temperature 98.3 F Pulse Rate 80 85 Respiratory Rate 14 20 Blood Pressure 168/82 H 114/69 Pulse Oximetry 99 97 Oxygen Delivery Method Room Air Room Air MDM - Extremity (Nontraumatic) <KEITH Brown - Last Filed: 10/12/22 15:13> Lab Data Result diagrams: 10/12/22 12:38 10/12/22 12:38 Labs: Lab Results 10/12/22 10/12/22 10/12/22 Range/Units 12:38 12:38 12:38 WBC 5.5 (4.5-11.0) X10^3/uL RBC 4.11 (4.0-5.2) X10^6/uL Hgb 13.1 (12.0-16.0) g/dL Hct 38.6 (36-46) % MCV 93.9 (80-100) fL MCH 31.8 (26-34) PG MCHC 33.9 (30-36) % RDW 13.0 (11.6-14.8) % Plt Count 297 (150-400) X10^3/uL Neut % (Auto) 59.5 (50-75) % Lymph % (Auto) 24.2 L (25-40) % [place] % (Auto) 13.2 (3-14) % Eos % (Auto) 2.5 (2-4) % Baso % (Auto) 0.6 (0-2) % Neut # (Auto) 3300 (0874-5423) /uL Lymph # (Auto) 1300 (5663-2907) /uL [place] # (Auto) 700 (0-900) /uL Eos # (Auto) 100 (0-450) /uL Baso # (Auto) 0 (0-100) /uL ESR 33 H (0-20) MM/HR D-Dimer 616 H (<500) ng/ml Sodium 142 (137-145) mmol/L Potassium 4.3 (3.4-5.1) mmol/L Chloride 103 (98-107) mmol/L Carbon Dioxide 33 H (22-32) mmol/L BUN 9 (7-17) mg/dL Creatinine 0.52 (0.52-1.04) mg/dL Estimated GFR > 60 (>60) mL/min BUN/Creatinine Ratio 17.3 (6-22) Glucose 101 (80-110) mg/dL Calcium 9.5 (8.4-10.2) mg/dL Total Bilirubin 0.4 (0.2-1.3) mg/dL AST 24 (14-36) IU/L ALT 18 (<35) IU/L Alkaline Phosphatase 77 (38-126) U/L C-Reactive Protein 3.1 H (<1.0) mg/dL Total Protein 7.8 (6.3-8.2) g/dL Albumin 4.1 (3.5-5.0) g/dL Globulin 3.7 (1.7-4.1) g/dL Albumin/Globulin Ratio 1.1 (1.0-2.8) Urine RBC (0-5/HPF) Urine WBC (0-5/HPF) Ur Squamous Epith Cells (0-5/HPF) Urine Bacteria (None) Ur Culture Indicated? SARS-CoV-2 (PCR) (Negative) 10/12/22 10/12/22 Range/Units 13:44 14:31 WBC (4.5-11.0) X10^3/uL RBC (4.0-5.2) X10^6/uL Hgb (12.0-16.0) g/dL Hct (36-46) % MCV (80-100) fL MCH (26-34) PG MCHC (30-36) % RDW (11.6-14.8) % Plt Count (150-400) X10^3/uL Neut % (Auto) (50-75) % Lymph % (Auto) (25-40) % [place] % (Auto) (3-14) % Eos % (Auto) (2-4) % Baso % (Auto) (0-2) % Neut # (Auto) (6181-5616) /uL Lymph # (Auto) (4706-6544) /uL [place] # (Auto) (0-900) /uL Eos # (Auto) (0-450) /uL Baso # (Auto) (0-100) /uL ESR (0-20) MM/HR D-Dimer (<500) ng/ml Sodium (137-145) mmol/L Potassium (3.4-5.1) mmol/L Chloride (98-107) mmol/L Carbon Dioxide (22-32) mmol/L BUN (7-17) mg/dL Creatinine (0.52-1.04) mg/dL Estimated GFR (>60) mL/min BUN/Creatinine Ratio (6-22) Glucose (80-110) mg/dL Calcium (8.4-10.2) mg/dL Total Bilirubin (0.2-1.3) mg/dL AST (14-36) IU/L ALT (<35) IU/L Alkaline Phosphatase (38-126) U/L C-Reactive Protein (<1.0) mg/dL Total Protein (6.3-8.2) g/dL Albumin (3.5-5.0) g/dL Globulin (1.7-4.1) g/dL Albumin/Globulin Ratio (1.0-2.8) Urine RBC 1-5/hpf D (0-5/HPF) Urine WBC 0-1/hpf (0-5/HPF) Ur Squamous Epith Cells 0-1 /hpf (0-5/HPF) Urine Bacteria None seen (None) Ur Culture Indicated? Cult not indicated SARS-CoV-2 (PCR) Negative (Negative) Urine Dip Bedside Urine Glucose Negative Bedside Urine Bilirubin - Negative Bedside Urine Ketone - Negative Urine Specific [place] 1.015 Bedside Urine Occult Blood +++ Bedside Urine pH 6.5 Bedside Urine Protein +/- 15 Bedside Urine Urobilinogen - Negative Bedside Urine Nitrite - Negative Bedside Urine Leukocytes ++ 125 Esterase Imaging Data US Extremity: Radiologist's Impression: PROCEDURE:? US PERIPH VENOUS UP EXTREM RT ? INDICATIONS:? tenosynovitis? DVT? thrombophlebitis? recent IV ? TECHNIQUE:? Real-time imaging, as well as color and pulse Doppler interrogation, was performed of the right upper extremity upper extremity deep veins from the inferior neck to the antecubital fossa.? ? COMPARISON:? None. ? FINDINGS:? The internal jugular vein, visualized portions of the subclavian vein, axillary, and brachial veins are free of intraluminal thrombus.? Where physically possible, the veins are normally compressible.? Color and pulse Doppler demonstrate normal intraluminal flow, with expected phasicity and pulsatility.? Additional scanning of the cephalic and basilic veins of the superficial system demonstrate normal compressibility, without thrombus.? ? IMPRESSION:? No findings of deep venous thrombosis or for thrombophlebitis. ? ? Dictated by: Patrick Clements M.D. on 10/12/2022 at 13:57 ? ? Approved by: Patrick Clements M.D. on 10/12/2022 at 13:57 ? MDM Narrative Medical decision making narrative: This is a 62-year-old female presents the emergency department for certain about right arm pain after an IV attempt and IV placement and removal 4 days ago for her right ureteral stent placement via cystoscopy with Dr. Luis Harley. Her right upper arm was negative for DVT on ultrasound, this is what she was most concerned about, also negative for thrombophlebitis which patient did not have symptoms of on my exam. She did not have pain to squeezing her upper arm, lower arm and over her wrist tendons. She is not have evidence of skin infection, weakness, sensation changes or other. Her right arm pain could be due to post COVID inflammation as she tested positive for COVID on 10/07/2022 and then had a negative COVID test on 10/08/2022. Patient has recent history of Proteus mirabilis with a right renal struvite stone with multiple drug resistance and resistance to all oral antibiotics. I consulted with Dr. Hollis regarding patient's urine today, urine dip shows leukocyte esterase, wbc's, blood, and nitrite. Microscopy ordered which shows 125 leukocyte esterase without bacteria but urine culture was sent, COVID PCR is negative He recommends since patient had recent instrumentation, chronic UTI secondary to Proteus mirabilis with stone to give ceftriaxone 2 g like she received 4 days ago and 2 prescribed fosfomycin Q 3 days x3 doses and she will call to schedule a sooner appointment with Dr. Harley as she may need a sooner lithotripsy if she has recurrence on this regimen. She is nontoxic appearing, without leukocytosis or anemia, her D-dimer was mildly elevated at 6 1 6 and age adjustment for her age cut off was 610. She had recent instrumentation with surgical procedure, I do not find this clinically evident and patient does not have shortness of breath, cough, tachycardia, chest pain, nausea vomiting, fever, chills, any symptoms of a blood clot including swelling of her extremities. Patient may not need additional antibiotics but her pain and symptoms in her right arm were improved after anti-inflammatories and Tylenol. She is nontoxic appearing, will follow-up with Dr. Harley. <Maddison Davies, DO - Last Filed: 10/14/22 12:23> Lab Data Labs: Lab Results 10/12/22 10/12/22 10/12/22 Range/Units 12:38 12:38 12:38 WBC 5.5 (4.5-11.0) X10^3/uL RBC 4.11 (4.0-5.2) X10^6/uL Hgb 13.1 (12.0-16.0) g/dL Hct 38.6 (36-46) % MCV 93.9 (80-100) fL MCH 31.8 (26-34) PG MCHC 33.9 (30-36) % RDW 13.0 (11.6-14.8) % Plt Count 297 (150-400) X10^3/uL Neut % (Auto) 59.5 (50-75) % Lymph % (Auto) 24.2 L (25-40) % [place] % (Auto) 13.2 (3-14) % Eos % (Auto) 2.5 (2-4) % Baso % (Auto) 0.6 (0-2) % Neut # (Auto) 3300 (0743-2874) /uL Lymph # (Auto) 1300 (1418-9796) /uL [place] # (Auto) 700 (0-900) /uL Eos # (Auto) 100 (0-450) /uL Baso # (Auto) 0 (0-100) /uL ESR 33 H (0-20) MM/HR D-Dimer 616 H (<500) ng/ml Sodium 142 (137-145) mmol/L Potassium 4.3 (3.4-5.1) mmol/L Chloride 103 (98-107) mmol/L Carbon Dioxide 33 H (22-32) mmol/L BUN 9 (7-17) mg/dL Creatinine 0.52 (0.52-1.04) mg/dL Estimated GFR > 60 (>60) mL/min BUN/Creatinine Ratio 17.3 (6-22) Glucose 101 (80-110) mg/dL Calcium 9.5 (8.4-10.2) mg/dL Total Bilirubin 0.4 (0.2-1.3) mg/dL AST 24 (14-36) IU/L ALT 18 (<35) IU/L Alkaline Phosphatase 77 (38-126) U/L C-Reactive Protein 3.1 H (<1.0) mg/dL Total Protein 7.8 (6.3-8.2) g/dL Albumin 4.1 (3.5-5.0) g/dL Globulin 3.7 (1.7-4.1) g/dL Albumin/Globulin Ratio 1.1 (1.0-2.8) Urine RBC (0-5/HPF) Urine WBC (0-5/HPF) Ur Squamous Epith Cells (0-5/HPF) Urine Bacteria (None) Ur Culture Indicated? SARS-CoV-2 (PCR) (Negative) 10/12/22 10/12/22 Range/Units 13:44 14:31 WBC (4.5-11.0) X10^3/uL RBC (4.0-5.2) X10^6/uL Hgb (12.0-16.0) g/dL Hct (36-46) % MCV (80-100) fL MCH (26-34) PG MCHC (30-36) % RDW (11.6-14.8) % Plt Count (150-400) X10^3/uL Neut % (Auto) (50-75) % Lymph % (Auto) (25-40) % [place] % (Auto) (3-14) % Eos % (Auto) (2-4) % Baso % (Auto) (0-2) % Neut # (Auto) (9569-1508) /uL Lymph # (Auto) (1306-2334) /uL [place] # (Auto) (0-900) /uL Eos # (Auto) (0-450) /uL Baso # (Auto) (0-100) /uL ESR (0-20) MM/HR D-Dimer (<500) ng/ml Sodium (137-145) mmol/L Potassium (3.4-5.1) mmol/L Chloride (98-107) mmol/L Carbon Dioxide (22-32) mmol/L BUN (7-17) mg/dL Creatinine (0.52-1.04) mg/dL Estimated GFR (>60) mL/min BUN/Creatinine Ratio (6-22) Glucose (80-110) mg/dL Calcium (8.4-10.2) mg/dL Total Bilirubin (0.2-1.3) mg/dL AST (14-36) IU/L ALT (<35) IU/L Alkaline Phosphatase (38-126) U/L C-Reactive Protein (<1.0) mg/dL Total Protein (6.3-8.2) g/dL Albumin (3.5-5.0) g/dL Globulin (1.7-4.1) g/dL Albumin/Globulin Ratio (1.0-2.8) Urine RBC 1-5/hpf D (0-5/HPF) Urine WBC 0-1/hpf (0-5/HPF) Ur Squamous Epith Cells 0-1 /hpf (0-5/HPF) Urine Bacteria None seen (None) Ur Culture Indicated? Cult not indicated SARS-CoV-2 (PCR) Negative (Negative) Urine Dip Bedside Urine Glucose Negative Bedside Urine Bilirubin - Negative Bedside Urine Ketone - Negative Urine Specific [place] 1.015 Bedside Urine Occult Blood +++ Bedside Urine pH 6.5 Bedside Urine Protein +/- 15 Bedside Urine Urobilinogen - Negative Bedside Urine Nitrite - Negative Bedside Urine Leukocytes ++ 125 Esterase Discharge Plan Departure Patient Disposition: Home Clinical Impression: Encounter for assessment for deep vein thrombosis (DVT), Proteus mirabilis infection, Status post placement of ureteral stent, Struvite kidney stones Urinary tract infection Qualifiers: Urinary tract infection type: acute cystitis Hematuria presence: without hematuria Qualified Code(s): N30.00 - Acute cystitis without hematuria Activity Restrictions/Additional Instructions: *You have been diagnosed with infection returning to your urine which is concerning for you having symptoms of illness prior to your scheduled procedure on 10/22/2022. I spoke with on-call Urology today who recommends taking the fosfomycin antibiotic tomorrow, that should cover you for 3 days, on Friday, call the Urology Clinic and ask to schedule a sooner appointment with Dr. Harley as directed by the emergency department for recurrent infection. He will likely try and plan your surgery sooner. Please start using the estradiol cream, this can be helpful and take your other medications as prescribed. Please take ibuprofen tabs with food and water every 6 hours, it is okay to take hydrocodone in conjunction with that for pain that is worsening. Your ultrasound was negative for a blood, you have mild elevation of inflammatory markers without elevation of white blood cells or signs of an infection. Your urine however is growing bacteria and you will likely need your procedure sooner than planned. Thank you for coming in today, I hope you start feeling better soon. Remember to stay hydrated. We will call you if your COVID test comes back positive. *What to do: *Please continue to take your regular medications as directed. [x ] New medication prescriptions sent to your pharmacy: [facility] ] [ ] New medication written as a paper prescription [ ] No new medications given *Please follow up with your primary care provider in 2-3 days, call for an appointment. Let them know you were seen in the Emergency Department and that we asked that you be seen for follow-up. We will electronically transmit a record of today's note if your PCP is in our system *If you do not have a primary care provider please contact [phone] to establish care with one of the [facility] primary care providers. *Return to Emergency Department if you should have any new, worsening, or concerning symptoms, such as [fever greater than 101F, chills, worsening pain, persistent vomiting or other bothersome symptoms]. Prescriptions: New fosfomycin tromethamine 3 gram packet 1 packet PO Q3D PRN (Reason: proteus infection) Qty: 3 0RF ibuprofen 600 mg tablet 600 mg PO Q8H PRN (Reason: pain) Qty: 30 0RF hydrocodone-acetaminophen 5-325 mg tablet 1 tab PO TID PRN (Reason: pain) Qty: 14 0RF diclofenac sodium 1 % gel 2 g topical QID Qty: 100 0RF Rx Instructions: apply to area of pain up to 4 times a day No Action Probiotic 10 billion cell Capsule 10,000 mmu cells PO DAILY phenazopyridine [Pyridium] 200 mg tablet 200 mg PO TID PRN (Reason: Bladder irritation) Qty: 30 0RF oxybutynin chloride 5 mg tablet 5 mg PO TID PRN (Reason: bladder spasms) Qty: 30 0RF d-mannose 500 mg capsule 500 mg PO DAILY ascorbic acid (vitamin C) 500 mg capsule 500 mg PO DAILY multivitamin Tablet 1 tab PO DAILY cranberry 400 mg capsule 400 mg PO BID Rx Instructions: administer with meals estradiol [Estrace] 0.01 % (0.1 mg/gram) cream 1 g vaginal 2XW Qty: 42.5 3RF Rx Instructions: nightly for 1st 12 nights, then reduce to twice weekly for lifetime. Referrals: Zak Chu MD [Primary Care Provider] - Asif Harley MD [Physician] - Visit Report Forms: Patient Portal/API <Maddison Davies DO - Last Filed: 10/14/22 12:23> Cosign ED Attending Eleature Attestation: I was immediately available in the department for consultation. Documentation has been reviewed.
[2022-10-12 12:56] LABS: Add Manual Diff / Slide Review NO; Basophils Absolute Auto 0 /uL (0-100); Basophils Percent Auto 0.6 % (0-2); Eosinophils Absolute Auto 100 /uL (0-450); Eosinophils Percent Auto 2.5 % (2-4); Hematocrit 38.6 % (36-46); Hemoglobin 13.1 g/dL (12.0-16.0); Lymphocytes Absolute Auto 1300 /uL (1100-4500); Lymphocytes Percent Auto 24.2 % (25-40); Mean Corpuscular HGB Conc 33.9 % (30-36); Mean Corpuscular Hemoglobin 31.8 PG (26-34); Mean Corpuscular Volume 93.9 fL (80-100); Monocytes Absolute Auto 700 /uL (0-900); Monocytes Percent Auto 13.2 % (3-14); Neutrophils Absolute Auto 3300 /uL (1500-7000); Neutrophils Percent Auto 59.5 % (50-75); Platelet Count 297 X10^3/uL (150-400); Red Blood Cell Count 4.11 X10^6/uL (4.0-5.2); White Blood Cell Count 5.5 X10^3/uL (4.5-11.0)
[2022-10-12 13:15] LABS: D Dimer 616 ng/ml (<500)
[2022-10-12 13:21] LABS: Alanine Aminotransferase 18 IU/L (<35); Albumin 4.1 g/dL (3.5-5.0); Albumin Globulin Ratio 1.1 (1.0-2.8); Alkaline Phosphatase 77 U/L (38-126); Aspartate Aminotransferase 24 IU/L (14-36); BUN Creatinine Ratio 17.3 (6-22); Bilirubin Total 0.4 mg/dL (0.2-1.3); Blood Urea Nitrogen 9 mg/dL (7-17); C-Reactive Protein Quant 3.1 mg/dL (<1.0); Calcium 9.5 mg/dL (8.4-10.2); Carbon Dioxide 33 mmol/L (22-32); Chloride 103 mmol/L (98-107); Estimated Glomerular Filt Rate > 60 mL/min (>60); Globulin 3.7 g/dL (1.7-4.1); Glucose 101 mg/dL (80-110); HEMOLYSIS < 15 (0-50); Potassium 4.3 mmol/L (3.4-5.1); Sodium 142 mmol/L (137-145); Total Protein 7.8 g/dL (6.3-8.2)
[2022-10-12] MEDS: ACETAMINOPHEN 325 MG TABLET 650 MG PO (14:28)
[2022-10-12] MEDS: cefTRIAXone 2,000 MG in SODIUM CHLORIDE 0.9% 100 ML 200 MG IV (14:29)
[2022-10-12] MEDS: KETOROLAC 30 MG/ML VIAL 15 MG IV (14:29)
[2022-10-12 14:34] LABS: Erythrocyte Sedimentation Rate 33 MM/HR (0-20)
[2022-10-12 14:50] LABS: COVID19 -Nasal RAPID Negative (Negative)
[2022-10-12 14:56] LABS: Bacteria Urine None Seen; Culture Indicated Urine Cult Not Indicated; RBC Urine 1-5/HPF (0-5/HPF); Squamous Epithelial Cell Urine 0-1 /HPF (0-5/HPF); WBC Urine 0-1/HPF (0-5/HPF)
[2022-10-12 15:01] VITALS: BP 114/69; PULSE 85; RESP 20; O2SAT 97
== END 2022-10-12 15:03 | disposition home or self-care (01) ==
PROVIDERS: Emergency Provider Nurse Practitioner Critical Care Medicine; PCP Family Medicine
DX: I82.622 Acute embolism and thrombosis of deep veins of left upper extremity (principal); Z96.0 Presence of urogenital implants; A49.8 Other bacterial infections of unspecified site; N20.0 Calculus of kidney; N30.00 Acute cystitis without hematuria; Z20.822 Contact with and (suspected) exposure to COVID-19; Z79.899 Other long term (current) drug therapy
CPT/HCPCS: 36415; 80053; 81003; 81015; 85025; 85379; 85651; 86140; 87077; 87086; 87186; 87635; 93971; 96365; 96375; 99284; C9803; J0696; J1885

== ENCOUNTER → 2022-10-21 09:32 | Outpatient (CLI) | payer OTHER, MEDICAID, SELFPAY ==
[2022-10-21 10:09] LABS: COVID19 -Nasal RAPID Negative (Negative)
== END ==
PROVIDERS: PCP Family Medicine; Visit Provider Urology
DX: Z20.822 Contact with and (suspected) exposure to COVID-19 (principal)
CPT/HCPCS: 87635; C9803

== ENCOUNTER 2022-10-22 10:54 | Day surgery (SDC) | payer OTHER, MEDICAID, SELFPAY ==
[2022-10-18 13:37] VITALS: BMI 23.3
[2022-10-22] VITALS (7 sets, daily range): BP systolic 110–135; BP diastolic 69–85; PULSE 71–99; RESP 13–19; TEMP 36.3–36.9; O2SAT 97–100; BMI 23.3
[2022-10-22] MEDS: LACTATED RINGERS 1,000 ML 21 ML IV (11:52)
--- NOTE | 2022-10-22 12:05 | PM.PREOP ---
Pre-operative Note COVID-19 COVID-19 status: Negative Result date/Date tested (Pos, Neg/Pending): 10/21/22 Criteria for continued procedure: Delay expected to result in less-positive ultimate med/surg outcome and Non-surgical alternatives not available or appropriate per current SOC Interval Note History & Physical reviewed/Exam performed by Physician: Yes Changes to H&P: No
[2022-10-22] MEDS: CIPROFLOXACIN 400 MG/200 ML PIGGYBACK 200 MG IV (12:10)
[2022-10-22] MEDS: cefTRIAXone 2,000 MG in SODIUM CHLORIDE 0.9% 100 ML 200 MG IV (12:22)
--- NOTE | 2022-10-22 12:29 | SUR.OPER ---
Supine on padded OR bed, head on pillow, arms secured on padded arm boards at <90 degrees abduction, legs uncrossed, safety belt at thigh, tape over blanket over lower legs.
--- NOTE | 2022-10-22 13:00 | PM.OP.1 ---
Procedure & Clinicians Procedure: Right extracorporeal shockwave lithotripsy Same procedure as scheduled: Yes Indications: This 62-year-old female presented with complaints of recurring urinary tract infections was found to have a large right renal pelvic calculus. She underwent stent placement and comes at this time for extracorporeal shockwave lithotripsy to treat the stone. Patient has covered by antibiotics appropriate to the cultures obtained. Surgeon: Asif Harley Click Yes if Unassisted: Yes Anesthesia Type: General Operative Notes Findings: Findings: Stent is in good position. Stone is in the renal pelvis and after 2000 shocks at level 7.5 it appeared completely fragmented. No other abnormality or significant finding was noted. Closure Type: not applicable Specimen(s): none sent Estimated Blood Loss (mL): 0 Procedure in detail: Procedure in detail: After informed consent was obtained, the patient was identified and brought to the operating room where she was placed in the supine position on the Lithotripter. Patient then had anesthesia induced and maintained. After ensuring an adequate level of anesthesia, time-out the stone was targeted via the imaging system and with the stone in appropriate position shock waves were delivered ramping up to 7.5 for total of 2000 shocks. Periodic reimaging and re localization was performed to ensure maximal energy delivery to the stone. At 2000 shock waves the shockwave head was rotated out and fluoroscopy performed which revealed the stone to be completely fragmented. At this point the shock waves were ended the patient was awakened having tolerated the procedure well and transferred to the postanesthesia care unit for recovery. There were no complications Complications: none Post-operative Condition: stable Disposition: PACU Plan for aftercare: Patient will follow-up my office in approximately 10-14 days or so with a KUB. Patient is to strain her urine at home and save any fragments and bring them to follow-up.
== END 2022-10-22 14:05 | disposition home or self-care (01) ==
PROVIDERS: PCP Family Medicine; Referring Provider Urology; Visit Provider Urology
PROC: (CPT 50590; principal; 2022-10-22 12:30)
DX: N20.0 Calculus of kidney (principal); Z96.0 Presence of urogenital implants
CPT/HCPCS: 50590; 36415; J0696; J0744; J1100; J2250; J2405; J2704; J3010

== ENCOUNTER → 2022-10-23 09:26 | Outpatient (CLI) | payer OTHER, MEDICAID, SELFPAY ==
[2022-10-29 09:47] LABS: Ca oxalate monohydr 10 % (.); Carbonate Apatite 90 % (.)
== END ==
PROVIDERS: PCP Family Medicine; Visit Provider Urology
DX: N20.0 Calculus of kidney (principal)
CPT/HCPCS: 82365

== ENCOUNTER → 2022-11-05 08:13 | Outpatient (CLI) | payer OTHER, MEDICAID, SELFPAY ==
--- NOTE | 2022-11-05 08:14 | DI.RAD.S_ITS ---
PROCEDURE: XR KUB INDICATIONS: Kidney Stones TECHNIQUE: One view of the abdomen acquired. COMPARISON: [facility], CT, CT IVP A/P W/WO, 09/25/2022, 12:51. [facility], CR, XR ABDOMEN 1V, 10/08/2022, 13:48. [facility], CR, XR KUB, 10/02/2022, 7:44. [facility], CR, XR KUB, 09/27/2022, 16:12. FINDINGS: Surgical changes and devices: There is a right double-J ureteral stent present. Bowel: Bowel gas pattern is normal. Soft tissues: A questionable radiopacity is present in the region of the right renal pelvis. No other suspicious soft tissue calcifications. Bones: No suspicious bony lesions. IMPRESSION: 1. Double-J ureteral stent. 2. Questionable calcification in the right renal pelvis. Dictated by: Kimi Solorzano M.D. on 11/05/2022 at 9:23 Approved by: Kimi Solorzano M.D. on 11/05/2022 at 9:25
[2022-11-08 11:36] LABS: Fecal Immunochemical Test Negative (Negative)
== END ==
PROVIDERS: PCP Family Medicine; Referring Provider Urology; Visit Provider Urology
DX: N30.01 Acute cystitis with hematuria (principal); N20.0 Calculus of kidney; Z12.11 Encounter for screening for malignant neoplasm of colon; Z96.0 Presence of urogenital implants
CPT/HCPCS: 74018; 82274

== ENCOUNTER → 2022-11-20 08:39 | Outpatient (CLI) | payer OTHER, MEDICAID, SELFPAY ==
--- NOTE | 2022-11-20 08:41 | DI.RAD.S_ITS ---
PROCEDURE: XR KUB INDICATIONS: Follow-up right kidney stone after treatment TECHNIQUE: One view of the abdomen acquired. COMPARISON: [facility], , XR KUB, 11/05/2022, 8:15. FINDINGS: Surgical changes and devices: Right ureterovesicular stent is present. Bowel: Bowel gas pattern is normal. Soft tissues: No suspicious abdominal calcifications. There is no definitively identified calcification overlying the right kidney or expected course of the ureter. No calcifications overlying the bladder, except left pelvic calcifications likely phleboliths as they are unchanged. Visualized solid organ contours appear normal in size. Bones: No suspicious bony lesions. IMPRESSION: No visualized right calcification overlying the course of the renal, ureteral collecting system. Dictated by: Jihan Yarbrough M.D. on 11/20/2022 at 12:09 Approved by: Jihan Yarbrough M.D. on 11/20/2022 at 12:12
== END ==
PROVIDERS: PCP Family Medicine; Referring Provider Urology; Visit Provider Urology
DX: N20.0 Calculus of kidney (principal); Z96.0 Presence of urogenital implants
CPT/HCPCS: 74018

== ENCOUNTER → 2022-11-29 12:54 | Outpatient (CLI) | payer OTHER, MEDICAID, SELFPAY | PROVIDERS: PCP Family Medicine; Visit Provider Urology | DX: N20.0 Calculus of kidney (principal); N39.0 Urinary tract infection, site not specified; N95.2 Postmenopausal atrophic vaginitis; R31.9 Hematuria, unspecified; Z87.440 Personal history of urinary (tract) infections; Z96.0 Presence of urogenital implants | CPT/HCPCS: 52310; 81002; 87077; 87086; 87185; 87186 ==

== ENCOUNTER → 2022-12-11 13:20 | Outpatient (CLI) | payer OTHER, MEDICAID, SELFPAY ==
[2022-12-11 14:34] LABS: Calcium 9.2 mg/dL (8.4-10.2); Uric Acid 2.6 mg/dL (2.5-6.2)
[2022-12-12 09:15] LABS: Calcium 9.4 mg/dL (8.7-10.3); Parathyroid Hormone, Intact 55 pg/mL (15-65)
== END ==
PROVIDERS: PCP Family Medicine; Referring Provider Urology; Visit Provider Urology
DX: N30.01 Acute cystitis with hematuria (principal); N20.0 Calculus of kidney; N95.2 Postmenopausal atrophic vaginitis
CPT/HCPCS: 36415; 81002; 82310; 83970; 84550; 99214

== ENCOUNTER → 2023-05-14 07:26 | Outpatient (CLI) | payer OTHER, MEDICAID, SELFPAY ==
--- NOTE | 2023-05-14 07:28 | DI.RAD.S_ITS ---
PROCEDURE: XR KUB INDICATIONS: Kidney stones TECHNIQUE: One view of the abdomen acquired. COMPARISON: [facility], CT, CT IVP A/P W/WO, 09/25/2022, 12:51. [facility], CR, XR KUB, 11/20/2022, 8:48. FINDINGS: Surgical changes and devices: None. Bowel: Bowel gas pattern is normal. Soft tissues: No suspicious abdominal calcifications. Visualized solid organ contours appear normal in size. Bones: No suspicious bony lesions. IMPRESSION: No definite renal calculus is seen radiographically. Approved by: Elvis Chauhan M.D. on 05/14/2023 at 8:12
== END ==
LOC: LAB 07:27 → RAD 07:28
PROVIDERS: PCP Family Medicine; Referring Provider Urology; Visit Provider Urology
DX: N20.0 Calculus of kidney (principal)
CPT/HCPCS: 74018

== ENCOUNTER → 2023-08-25 08:38 | Outpatient (CLI) | payer OTHER, MEDICAID, SELFPAY ==
--- NOTE | 2023-08-25 08:39 | DI.RAD.S_ITS ---
PROCEDURE: XR KUB INDICATIONS: Kidney stones TECHNIQUE: One view of the abdomen acquired. COMPARISON: [facility], CR, XR KUB, 05/14/2023, 7:28. FINDINGS: Surgical changes and devices: None. Bowel: Bowel gas pattern is normal. Soft tissues: No suspicious abdominal calcifications. Visualized solid organ contours appear normal in size. Bones: No suspicious bony lesions. IMPRESSION: No gross renal calculi are seen. No peritoneal free air. Dictated by: Donnie Colon M.D. on 08/25/2023 at 11:07 Approved by: Donnie Colon M.D. on 08/25/2023 at 11:08
== END ==
PROVIDERS: PCP Family Medicine; Referring Provider Urology; Visit Provider Urology
DX: N20.0 Calculus of kidney (principal)
CPT/HCPCS: 74018

== ENCOUNTER → 2024-03-18 10:36 | Outpatient (CLI) | payer OTHER, MEDICAID, SELFPAY ==
[2024-03-19 14:01] LABS: Fecal Immunochemical Test Negative (Negative)
== END ==
PROVIDERS: PCP Family Medicine; Referring Provider Family Medicine; Visit Provider Family Medicine
DX: Z12.11 Encounter for screening for malignant neoplasm of colon (principal)
CPT/HCPCS: 82274

== ENCOUNTER → 2024-03-30 14:26 | Outpatient (CLI) | payer OTHER, MEDICAID, SELFPAY ==
--- NOTE | 2024-03-30 14:27 | DI.RAD.S_ITS ---
PROCEDURE: XR CERVICAL SPINE 2V OR 3V INDICATIONS: eval neck and mid back pain TECHNIQUE: 3 view(s) of the cervical spine were acquired. COMPARISON: None. FINDINGS: Bones: No fractures or dislocations to the T1 level. Degenerative endplate changes, loss of disc height and bilateral facet hypertrophic changes are noted at C4-5, C5-6 and C6-7 levels. The lateral masses of C1 appear intact on the odontoid view. No suspicious bony lesions. Soft tissues: No prevertebral soft tissue swelling. IMPRESSION: Rsel-op-ykmsydhi degenerative disc disease in mid to lower cervical spine. No acute fracture or dislocation. Dictated by: Donnie Colon M.D. on 03/30/2024 at 18:15 Approved by: Donnie Colon M.D. on 03/30/2024 at 18:15
--- NOTE | 2024-03-30 14:27 | DI.RAD.S_ITS ---
PROCEDURE: XR THORACIC SPINE 3V INDICATIONS: eval neck and midback pain TECHNIQUE: 3 views of the thoracic spine were acquired. COMPARISON: None. FINDINGS: Bones: No fractures or dislocations. Loss of disc height and degenerative endplate changes are noted in mid to lower thoracic spine. No suspicious bony lesions. 12 pairs of ribs are noted, and appear intact where visualized. Soft tissues: No paravertebral stripe thickening. IMPRESSION: Mild degenerative disc disease in mid to lower thoracic spine. No acute compression fracture or spondylolisthesis. Dictated by: Donnie Colon M.D. on 03/30/2024 at 18:16 Approved by: Donnie Colon M.D. on 03/30/2024 at 18:16
== END ==
PROVIDERS: PCP Family Medicine; Referring Provider Registered Nurse Diabetes Educator; Visit Provider Registered Nurse Diabetes Educator
DX: M50.321 Other cervical disc degeneration at C4-C5 level (principal); M51.34 Other intervertebral disc degeneration, thoracic region; M54.9 Dorsalgia, unspecified
CPT/HCPCS: 72050; 72072

== ENCOUNTER → 2024-05-07 11:35 | Outpatient (CLI) | payer OTHER, MEDICAID, SELFPAY ==
--- NOTE | 2024-05-07 11:36 | DI.RAD.S_ITS ---
PROCEDURE: XR DEXA AXIAL SKELETON INDICATIONS: osteopenia, menopausal COMPARISON: None. FINDINGS: Lumbar Spine: Bone mineral density 0.801 g/cm2, T score -2.2. Left Hip: Bone mineral density 0.830 g/cm2, T score -0.9. Left Femoral Neck: Bone mineral density 0.542 g/cm2, T score -2.8. Right Hip: Bone mineral density 0.780 g/cm2, T score -1.3. Right Femoral Neck: Bone mineral density 0.604 g/cm2, T score -2.2. Fracture Risk Calculation (when applicable): 10-year fracture risk of a major osteoporotic fracture 24% and of a hip fracture 3.1%. (T score greater or equal to -1.0 to: NORMAL) (T score from -1.1 to -2.4: OSTEOPENIA) (T score less than or equal to -2.5: OSTEOPOROSIS) IMPRESSION: Osteoporosis. Follow-up guidelines as follows: Osteoporosis: Consider a repeat DEXA and Vertebral Fracture Assessment (VFA) exam in 2 years or sooner if medically necessary, to reassess this patient's status. Osteopenia: Consider a repeat DEXA in 2-3 years to reassess this patient's status, or if there is a new clinical indication. Normal: Consider a repeat DEXA in 5 years or sooner, or if there is a new clinical indication. All treatment decisions require clinical judgment and consideration of individual patient factors, including patient preferences, comorbidities, previous drug use, risk factors not captured in the FRAX model (e.g., frailty, falls, vitamin D deficiency, increased bone turnover, interval significant decline in bone density ) and possible under- or over-estimation of fracture risk by FRAX. In addition, the NOF Guide recommends that FDA-approved medical therapies be considered in postmenopausal women and men age >= 50 years with a: * Hip or vertebral (clinical or morphometric) fracture * T-score of <=-2.5 at the spine or hip * Ten-year fracture probability by FRAX of >= 3% for hip fracture or >=20% for major osteoporotic fracture. People with diagnosed cases of osteoporosis or at high risk for fracture should have regular bone mineral density tests. For patients eligible for Medicare, routine testing is allowed once every 2 years. The testing frequency can be increased to one year for patients who have rapidly progressing disease, those who are receiving or discontinuing medical therapy to restore bone mass, or have additional risk factors. Dictated by: Ruy Haider M.D. on 05/07/2024 at 22:31 Approved by: Ruy Haider M.D. on 05/07/2024 at 23:04
== END ==
PROVIDERS: PCP Family Medicine; Referring Provider Family Medicine; Visit Provider Family Medicine
DX: M81.0 Age-related osteoporosis without current pathological fracture (principal)
CPT/HCPCS: 77080

== ENCOUNTER → 2024-05-21 09:06 | Outpatient (CLI) | payer OTHER, MEDICAID, SELFPAY ==
[2024-05-21 09:48] LABS: Add Manual Diff / Slide Review NO; Basophils Absolute Auto 0 /uL (0-100); Eosinophils Absolute Auto 100 /uL (0-450); Eosinophils Percent Auto 2.9 % (2-4); Hematocrit 39.6 % (36-46); Hemoglobin 13.3 g/dL (12.0-16.0); Lymphocytes Absolute Auto 1300 /uL (1100-4500); Lymphocytes Percent Auto 36.6 % (25-40); Mean Corpuscular HGB Conc 33.5 % (30-36); Mean Corpuscular Hemoglobin 31.3 PG (26-34); Mean Corpuscular Volume 93.5 fL (80-100); Monocytes Absolute Auto 400 /uL (0-900); Monocytes Percent Auto 12.1 % (3-14); Neutrophils Absolute Auto 1700 /uL (1500-7000); Neutrophils Percent Auto 47.4 % (50-75); Platelet Count 307 X10^3/uL (150-400); Red Blood Cell Count 4.24 X10^6/uL (4.0-5.2); Red Cell Distribution Width 13.1 % (11.6-14.8); White Blood Cell Count 3.6 X10^3/uL (4.5-11.0)
[2024-05-21 10:08] LABS: Alanine Aminotransferase 24 IU/L (<35); Albumin 4.2 g/dL (3.5-5.0); Albumin Globulin Ratio 1.4 (1.0-2.8); Alkaline Phosphatase 70 U/L (38-126); Aspartate Aminotransferase 26 IU/L (14-36); Bilirubin Total 0.4 mg/dL (0.2-1.3); Blood Urea Nitrogen 14 mg/dL (7-17); Calcium 9.3 mg/dL (8.4-10.2); Carbon Dioxide 30 mmol/L (22-32); Chloride 107 mmol/L (98-107); Estimated Glomerular Filt Rate > 60 mL/min (>60); Glucose 105 mg/dL (80-110); HDL Cholesterol 99 mg/dL (40-60); HEMOLYSIS < 15 (0-50); Potassium 4.6 mmol/L (3.4-5.1); Sodium 139 mmol/L (137-145); Total Protein 7.2 g/dL (6.3-8.2); Triglycerides 61 mg/dL (35-150)
[2024-05-21 10:58] LABS: Hep C Virus Ab w/Reflex Quant NEGATIVE s/c (NEGATIVE)
[2024-05-21 12:42] LABS: Cholesterol 207 mg/dL (140-199); LDL Cholesterol Calculated 96 mg/dL (<100)
[2024-05-22 07:39] LABS: Apolipoprotein B 82 mg/dL (<90)
== END ==
PROVIDERS: PCP Family Medicine; Referring Provider Family Medicine; Visit Provider Family Medicine
DX: R82.991 Hypocitraturia (principal); E78.5 Hyperlipidemia, unspecified; M85.80 Other specified disorders of bone density and structure, unspecified site; I65.29 Occlusion and stenosis of unspecified carotid artery; Z82.49 Family history of ischemic heart disease and other diseases of the circulatory system
CPT/HCPCS: 36415; 80053; 80061; 82172; 85025; 86803

== ENCOUNTER → 2024-06-08 10:56 | Oncology outpatient (ONC) | payer OTHER, MEDICAID, SELFPAY ==
[2024-06-08] MEDS: ZOLEDRONIC ACID 5 MG in SODIUM CHLORIDE 0.9% 100 ML 425 MG IV (11:38)
== END ==
PROVIDERS: PCP Family Medicine; Referring Provider Family Medicine; Visit Provider Family Medicine
DX: M81.0 Age-related osteoporosis without current pathological fracture (principal)
CPT/HCPCS: 96365; J3489

== ENCOUNTER 2024-09-08 13:45 | Outpatient (RCR) | payer OTHER, MEDICAID, SELFPAY ==
--- NOTE | 2024-07-15 18:16 | PT.OIE ---
Current Diagnoses Pain in left knee (07/15/24) Spondylolisthesis, lumbar region (07/15/24) Cervicalgia (07/15/24) Past Medical History (Last Updated 05/25/24 @ 07:55 by Zak Chu MD) Abnormal laboratory test result Atrophic vaginitis Blood in urine Calcium oxalate kidney stones Fractures (~2010) History of urinary tract infection Hyperlipidemia Hypocitraturia Osteopenia (~2009) Osteoporosis Phosphate kidney stone Right forearm pain Right kidney stone Right shoulder pain Skin spots, red Spondylolisthesis, lumbar region Past Surgical History (Last Reviewed 04/01/24 @ 13:38 by KEITH Connolly) Anesthesia H/O tubal ligation History of surgery on arm (~07/2011) Hx of cystoscopy (10/08/22) Visit Care Team Role Provider Type Zak Chu MD Attending Provider Physician Family Provider Primary Care Provider Referring Provider Specialty: [facility] Practice Address: [address] [place] [address] Email: [email or web address] Physical Therapy Initial Evaluation PT-OP-A Visit Information Start: 07/14/24 17:52 Freq: Status: Active Protocol: Document 07/15/24 09:44 [facility] (Rec: 07/15/24 11:23 [facility] [id number]) Out-Patient Physical Therapy Visit Information Visit Information Visit Type Initial Evaluation Visit Start Time 10:35 Visit Stop Time 11:20 Visit Number 12/03 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 Used to be a middisatnce runner but stopped d/t pain about 10 years ago. She walks now was rowing at a gym. Stopped rowing d/t no longer has membership. She is very active. Hx of L elbow fx and radius dislocation w/ surgery. Notes osteophytes in neck and has some pain w/ looking up. Last spring was in [place], after doing a lot of stairs, she started having post knee tightness. It hasn't gotten better or worse w/ exercise. Walks daily and doing some weights at home. denies numbness/tingling. Pt's was doing full CG for for several months after had severe stroke which did a number on her back in 2017 then he went to a SNF where she still did bathing. Treatment Goals Patient/Caregiver Goals more flexibity in leg to do floor exercises. PT-OP-C Subjective Start: 07/14/24 17:52 Freq: Status: Active Protocol: Document 07/15/24 09:44 [facility] (Rec: 07/15/24 11:23 [facility] [id number]) Patient Questionnaires Lower Extremity Functional Scale LEFS Score 58/80 OP-PT Pain Assessment Location back Pain Location Details LB Pain Aggravating Factors Lifting Other Pain Aggravating Factors transitions L post knee Pain Location Details post knee HS/calf & ant knee Description Tightness Frequency Constant Pain Aggravating Factors Bending Other Pain Aggravating Factors seated on ground stretches;up/ down ground PT-OP-D Balance Start: 07/14/24 17:52 Freq: Status: Active Protocol: Document 07/15/24 09:44 [facility] (Rec: 07/15/24 11:23 [facility] [id number]) Balance Tests Single Limb Standing Single Limb- Right opp hip drop >30 sec Single Limb- Left lat lean L >30 sec PT-OP-F Manual Assessment Start: 07/14/24 17:52 Freq: Status: Active Protocol: Document 07/15/24 09:44 [facility] (Rec: 07/15/24 11:23 [facility] [id number]) Manual Assessments Soft Tissue Assessment Soft Tissue Mobility Assessment tightness HS, calf and ITB L PT-OP-G Mobility & Gait Start: 07/14/24 17:52 Freq: Status: Active Protocol: Document 07/15/24 09:44 [facility] (Rec: 07/15/24 11:23 [facility] [id number]) OP Gait Assessment Comments Gait Comments dec L push up/hip ext and dec stance time LLE PT-OP-J Posture/Palpation/Skin Start: 07/14/24 17:52 Freq: Status: Active Protocol: Document 07/15/24 09:44 [facility] (Rec: 07/15/24 11:23 [facility] [id number]) Posture Evaluation [facility] Postural Classification System Lumbar Protective Mechanism Left AP 0 Lumbar Protective Mechanism Right AP 0 Lumbar Protective Mechanism Left PA 3 Lumbar Protective Mechanism Right PA 1 Comments Posture Comments L pelvis higher, equal greater trocanters, L femur IR significant; B toe out mild; L >R pronation PT-OP-K Range of Motion Start: 07/14/24 17:52 Freq: Status: Active Protocol: Document 07/15/24 09:44 [facility] (Rec: 07/15/24 11:23 [facility] [id number]) Knee Goniometric Range of Motion Knee Right Flexion Active (degrees) 135 Extension Active (degrees) 0 Left Flexion Active (degrees) 135 Extension Active (degrees) 0 Ankle and Foot Goniometric Range of Motion Ankle and Foot ROM Limitations Comments Knee to wall: R:3 in L:2.5 in PT-OP-L Special Tests Start: 07/14/24 17:52 Freq: Status: Active Protocol: Document 07/15/24 09:44 [facility] (Rec: 07/15/24 11:23 [facility] [id number]) Special Tests Knee Special Tests Stubbs Comments L minor imporved ant knee pain SLR Comments 75 deg L; R 90 deg SLump Comments neg ext sit and slump B-mild tightness PT-OP-M Strength Start: 07/14/24 17:52 Freq: Status: Active Protocol: Document 07/15/24 09:44 [facility] (Rec: 07/15/24 11:23 [facility] [id number]) Hip Strength Hip Manual Muscle Testing Right Flexion (L2) 4- Good- Extension (S1) 4- Good- Abduction 4- Good- Adduction 4 Good External Rotation 4- Good- Internal Rotation 4- Good- Left Flexion (L2) 4- Good- Extension (S1) 4- Good- Abduction 4- Good- Adduction 4- Good- External Rotation 4- Good- Internal Rotation 4- Good- Knee Strength Knee Manual Muscle Testing Right Flexion (S2) 4- Good- Extension (L3) 4+ Good+ Left Flexion (S2) 4- Good- Extension (L3) 4+ Good+ Comments pain mild ant knee w/ext Ankle/Foot Strength Ankle and Foot Manual Muscle Testing Right Dorsiflexion (L4) 5 Normal Plantarflexion (S1) 5 Normal Left Dorsiflexion (L4) 5 Normal Plantarflexion (S1) 5 Normal Comments 20 heel raises B- more calf tension L PT-OP-Q Treatments Start: 07/14/24 17:52 Freq: Status: Active Protocol: Document 07/15/24 09:44 [facility] (Rec: 07/15/24 18:16 [facility] [id number]) Self-Care/Home Management Treatment Education Other Education 8 min: edu to pt re: how has inc tightness on L side and overall weaker than would be expected for someone of her activity level including dec core strength. Discussed how pelvis imbalance could also be putting inc strain on L knee. PT-OP-T Assessment and Plan Start: 07/14/24 17:52 Freq: Status: Active Protocol: Document 07/15/24 09:44 [facility] (Rec: 07/15/24 11:23 [facility] [id number]) Physical Therapy Assessment Rehab Potential Rehabilitation Potential Good Evaluation Complexity Number of Personal Factors/Comorbidities 3 or More Number of Body Systems Impaired 4 or More Clinical Presentation at Evaluation Evolving Impairments Impairments Activity Tolerance,Balance, Functional Activities, Functional Mobility,Gait,Pain, Posture,ROM,Soft Tissue Mobility,Strength,Transfers Goals pain Penitentiary Goal (LTG) Pt will report no constant L knee pain LTG Duration 10/07 activities Short Term Goal (STG) Pt will report dec pain w/ transitions STG Duration 08/24 Penitentiary Goal (LTG) Pt will be able to do all sitting/ground stretches and exercises w/o inc L post knee pain LTG Duration 10/07 strength Short Term Goal (STG) Pt will be indep w/hEP STG Duration 08/24 Penitentiary Goal (LTG) Pt will score at least 4+/5 on all BLE MMT and at least 3/5 on LPM to show improved stability in order to dec pain during daily activities. LTG Duration 10/07 Assessment Summary Assessment Pt presents w/L post knee pain , but was not able to inc pain except w/pt sitting on ground in mary cross position. no inc pain or relief w/MMT or ROM noted by pt. She does have some noted L ant knee pain also, but less prevelent. Neural tension testing negative, but pt does have higher pelvis on L side, L inc HS tightness and ankle restriction likely contributing to pain. She does have some inc swelling in post knee which could possibly be related to a bakers cyst. Pt does have overall hip and core weakness which likely is related to pain. Pt would benefit from skilled PT to dec back pain and improve LLE pain Physical Therapy Plan Frequency and Duration Frequency of Treatment 1-2x/wk Duration of treatment (weeks) 12 Plan of Care Start Date 07/15/24 Plan of Care End Date 10/07/24 Therapeutic Interventions Therapeutic Interventions Balance Training,Gait Training ,Home Exercise Program,Joint Mobilizations,Manual Therapy, Neuromuscular Re-education, Patient/Caregiver Education, Self-Care/Home Management,Soft Tissue Mobilization,Taping, Therapeutic Activities, Therapeutic Exercises Modalities Cold Pack/Ice Massage,Electric Stimulation,Hot Packs, Infrared Therapy,Ultrasound Next Visit Focus/Plan Next Note Type Treatment Note Next Visit Plan HEP: HS stretch, calf stretches, self roll out, HS curls, RDLs, heel raises on steps manual: STM to HS and calf, work on hip and ankle mobility on L and knee mobs consider taping
--- NOTE | 2024-07-15 18:16 | PT.OPPOC ---
Physical, Occupational & Speech Therapy At [facility] Current Diagnoses Pain in left knee (07/15/24) Spondylolisthesis, lumbar region (07/15/24) Cervicalgia (07/15/24) Visit Care Team Role Provider Type Zak Chu MD Attending Provider Physician Family Provider Primary Care Provider Referring Provider Specialty: Family Practice Address: [address] [place] [address], [facility] Email: [email or web address] Plan Of Care PT-OP-B Current Condition Start: 07/14/24 17:52 Freq: Status: Active Protocol: Document 07/15/24 09:44 [facility] (Rec: 07/15/24 11:23 [facility] [id number]) Current Condition History of Current Condition Onset Date chronic; last spring Current Complaints back and neck pain;L knee History of Current Condition Pt reports L5-S1 spondy was found in xray when livign in [place]. Used to be a middisatnce runner but stopped d/t pain about 10 years ago. She walks now was rowing at a gym. Stopped rowing d/t no longer has membership. She is very active. Hx of L elbow fx and radius dislocation w/ surgery. Notes osteophytes in neck and has some pain w/ looking up. Last spring was in [place], after doing a lot of stairs, she started having post knee tightness. It hasn't gotten better or worse w/ exercise. Walks daily and doing some weights at home. denies numbness/tingling. Pt's was doing full CG for for several months after had severe stroke which did a number on her back in 2017 then he went to a SNF where she still did bathing. Treatment Goals Patient/Caregiver Goals more flexibity in leg to do floor exercises. PT-OP-T Assessment and Plan Start: 07/14/24 17:52 Freq: Status: Active Protocol: Document 07/15/24 09:44 [facility] (Rec: 07/15/24 11:23 [facility] [id number]) Physical Therapy Assessment Rehab Potential Rehabilitation Potential Good Evaluation Complexity Number of Personal Factors/Comorbidities 3 or More Number of Body Systems Impaired 4 or More Clinical Presentation at Evaluation Evolving Impairments Impairments Activity Tolerance,Balance, Functional Activities, Functional Mobility,Gait,Pain, Posture,ROM,Soft Tissue Mobility,Strength,Transfers Goals pain Fdc Goal (LTG) Pt will report no constant L knee pain LTG Duration 10/07 activities Short Term Goal (STG) Pt will report dec pain w/ transitions STG Duration 08/24 Fdc Goal (LTG) Pt will be able to do all sitting/ground stretches and exercises w/o inc L post knee pain LTG Duration 10/07 strength Short Term Goal (STG) Pt will be indep w/hEP STG Duration 08/24 Route Delivery Driver Goal (LTG) Pt will score at least 4+/5 on all BLE MMT and at least 3/5 on LPM to show improved stability in order to dec pain during daily activities. LTG Duration 10/07 Assessment Summary Assessment Pt presents w/L post knee pain , but was not able to inc pain except w/pt sitting on ground in mary cross position. no inc pain or relief w/MMT or ROM noted by pt. She does have some noted L ant knee pain also, but less prevelent. Neural tension testing negative, but pt does have higher pelvis on L side, L inc HS tightness and ankle restriction likely contributing to pain. She does have some inc swelling in post knee which could possibly be related to a bakers cyst. Pt does have overall hip and core weakness which likely is related to pain. Pt would benefit from skilled PT to dec back pain and improve LLE pain Physical Therapy Plan Frequency and Duration Frequency of Treatment 1-2x/wk Duration of treatment (weeks) 12 Plan of Care Start Date 07/15/24 Plan of Care End Date 10/07/24 Therapeutic Interventions Therapeutic Interventions Balance Training,Gait Training ,Home Exercise Program,Joint Mobilizations,Manual Therapy, Neuromuscular Re-education, Patient/Caregiver Education, Self-Care/Home Management,Soft Tissue Mobilization,Taping, Therapeutic Activities, Therapeutic Exercises Modalities Cold Pack/Ice Massage,Electric Stimulation,Hot Packs, Infrared Therapy,Ultrasound Next Visit Focus/Plan Next Note Type Treatment Note Next Visit Plan HEP: HS stretch, calf stretches, self roll out, HS curls, RDLs, heel raises on steps manual: STM to HS and calf, work on hip and ankle mobility on L and knee mobs consider taping Plan of Care Dates Plan of Care Start Date 07/15/24 Plan of Care End Date 10/07/24 Electronically Signed by: Robyn Yepez, PT 07/15/24 8526 If you are in agreement with this Plan of Care, please return a signed and dated copy. I have reviewed this Plan of Care and certify that the skilled therapy services above are required to meet the patient?s needs. Physician Signature Date Printed Name and Credentials Clinical Instructor Signature Printed Name and Credentials
--- NOTE | 2024-07-20 11:26 | PT.OTN ---
Current Diagnoses Pain in left knee (07/20/24) Spondylolisthesis, lumbar region (07/20/24) Cervicalgia (07/20/24) Physical Therapy Treatment Note PT-OP-A Visit Information Start: 07/14/24 17:52 Freq: Status: Active Protocol: Document 07/20/24 09:44 [facility] (Rec: 07/20/24 11:26 [facility] [id number]) Out-Patient Physical Therapy Visit Information Visit Information Visit Type Treatment Note Visit Note 12/20 Visit Start Time 09:48 Visit Stop Time 10:29 Visit Number 2 Number of DATA OPERATIONS MANAGER Visits 0 PT-OP-B Current Condition Start: 07/14/24 17:52 Freq: Status: Active Protocol: Document 07/15/24 09:44 [facility] (Rec: 07/15/24 11:23 [facility] [id number]) Current Condition History of Current Condition Onset Date chronic; last spring Current Complaints back and neck pain;L knee History of Current Condition Pt reports L5-S1 spondy was found in xray when livign in [place]. Used to be a middisatnce runner but stopped d/t pain about 10 years ago. She walks now was rowing at a gym. Stopped rowing d/t no longer has membership. She is very active. Hx of L elbow fx and radius dislocation w/ surgery. Notes osteophytes in neck and has some pain w/ looking up. Last spring was in [place], after doing a lot of stairs, she started having post knee tightness. It hasn't gotten better or worse w/ exercise. Walks daily and doing some weights at home. denies numbness/tingling. Pt's was doing full CG for for several months after had severe stroke which did a number on her back in 2017 then he went to a SNF where she still did bathing. Treatment Goals Patient/Caregiver Goals more flexibity in leg to do floor exercises. PT-OP-C Subjective Start: 07/14/24 17:52 Freq: Status: Active Protocol: Document 07/20/24 09:44 [facility] (Rec: 07/20/24 11:26 [facility] [id number]) OP-PT Subjective Patient Comments Patient Comments no new compliants PT-OP-D Balance Start: 07/14/24 17:52 Freq: Status: Active Protocol: Document 07/15/24 09:44 [facility] (Rec: 07/15/24 11:23 [facility] [id number]) Balance Tests Single Limb Standing Single Limb- Right opp hip drop >30 sec Single Limb- Left lat lean L >30 sec PT-OP-F Manual Assessment Start: 07/14/24 17:52 Freq: Status: Active Protocol: Document 07/15/24 09:44 [facility] (Rec: 07/15/24 11:23 [facility] [id number]) Manual Assessments Soft Tissue Assessment Soft Tissue Mobility Assessment tightness HS, calf and ITB L PT-OP-G Mobility & Gait Start: 07/14/24 17:52 Freq: Status: Active Protocol: Document 07/15/24 09:44 [facility] (Rec: 07/15/24 11:23 [facility] [id number]) OP Gait Assessment Comments Gait Comments dec L push up/hip ext and dec stance time LLE PT-OP-J Posture/Palpation/Skin Start: 07/14/24 17:52 Freq: Status: Active Protocol: Document 07/15/24 09:44 [facility] (Rec: 07/15/24 11:23 [facility] [id number]) Posture Evaluation [facility] Postural Classification System Lumbar Protective Mechanism Left AP 0 Lumbar Protective Mechanism Right AP 0 Lumbar Protective Mechanism Left PA 3 Lumbar Protective Mechanism Right PA 1 Comments Posture Comments L pelvis higher, equal greater trocanters, L femur IR significant; B toe out mild; L >R pronation PT-OP-K Range of Motion Start: 07/14/24 17:52 Freq: Status: Active Protocol: Document 07/15/24 09:44 [facility] (Rec: 07/15/24 11:23 [facility] [id number]) Knee Goniometric Range of Motion Knee Right Flexion Active (degrees) 135 Extension Active (degrees) 0 Left Flexion Active (degrees) 135 Extension Active (degrees) 0 Ankle and Foot Goniometric Range of Motion Ankle and Foot ROM Limitations Comments Knee to wall: R:3 in L:2.5 in PT-OP-L Special Tests Start: 07/14/24 17:52 Freq: Status: Active Protocol: Document 07/15/24 09:44 [facility] (Rec: 07/15/24 11:23 [facility] [id number]) Special Tests Knee Special Tests Evelyne Comments L minor imporved ant knee pain SLR Comments 75 deg L; R 90 deg SLump Comments neg ext sit and slump B-mild tightness PT-OP-M Strength Start: 07/14/24 17:52 Freq: Status: Active Protocol: Document 07/15/24 09:44 [facility] (Rec: 07/15/24 11:23 [facility] [id number]) Hip Strength Hip Manual Muscle Testing Right Flexion (L2) 4- Good- Extension (S1) 4- Good- Abduction 4- Good- Adduction 4 Good External Rotation 4- Good- Internal Rotation 4- Good- Left Flexion (L2) 4- Good- Extension (S1) 4- Good- Abduction 4- Good- Adduction 4- Good- External Rotation 4- Good- Internal Rotation 4- Good- Knee Strength Knee Manual Muscle Testing Right Flexion (S2) 4- Good- Extension (L3) 4+ Good+ Left Flexion (S2) 4- Good- Extension (L3) 4+ Good+ Comments pain mild ant knee w/ext Ankle/Foot Strength Ankle and Foot Manual Muscle Testing Right Dorsiflexion (L4) 5 Normal Plantarflexion (S1) 5 Normal Left Dorsiflexion (L4) 5 Normal Plantarflexion (S1) 5 Normal Comments 20 heel raises B- more calf tension L PT-OP-Q Treatments Start: 07/14/24 17:52 Freq: Status: Active Protocol: Document 07/20/24 09:44 [facility] (Rec: 07/20/24 11:26 [facility] [id number]) Therapeutic Exercises Sitting Exercises HS curl Side left Equipment Used L3 Reps/Minutes 20 Comments cues slow and controlled self roll out Sitting Exercise Name HS and calf Side left Equipment Used rolling pin, tennis ball, foam roll Reps/Minutes 5 min Standing Exercises stretches Standing Exercise Name 1. calf on step 2. standing HS Side bilateral Reps/Minutes 1. 1 min 2. 30 sec ea heel raises Standing Exercise Name DL staisrs Side bilateral Reps/Minutes 15 Therapeutic Activity Therapeutic Activity hip hinge Name cues for neutral back Reps/Minutes 12 min Comments 1. seated hip hinge 2. standing w/bar 3. standing to reach Manual Therapy Treatment Consent Patient gave verbal consent for manual Yes treatment Soft Tissue Mobilization HS Body Location L Mobilization Type Rolling Intensity/Depth Moderate Body Position Supine Comments w/hip flex & AA HS stretch PT-OP-T Assessment and Plan Start: 07/14/24 17:52 Freq: Status: Active Protocol: Document 07/20/24 09:44 [facility] (Rec: 07/20/24 11:26 [facility] [id number]) Physical Therapy Assessment Goals pain Director Of Human Resources Goal (LTG) Pt will report no constant L knee pain LTG Duration 10/07 activities Short Term Goal (STG) Pt will report dec pain w/ transitions STG Duration 08/24 [facility] Goal (LTG) Pt will be able to do all sitting/ground stretches and exercises w/o inc L post knee pain LTG Duration 10/07 strength Short Term Goal (STG) Pt will be indep w/hEP STG Duration 08/24 Director Of Human Resources Goal (LTG) Pt will score at least 4+/5 on all BLE MMT and at least 3/5 on LPM to show improved stability in order to dec pain during daily activities. LTG Duration 10/07 Assessment Summary Assessment Pt required a lot fo cues for hip higning but improved w/ cues for buttocks back. She did well with all exercises w/ o inc pain. Physical Therapy Plan Frequency and Duration Frequency of Treatment 1-2x/wk Duration of treatment (weeks) 12 Plan of Care Start Date 07/15/24 Plan of Care End Date 10/07/24 Next Visit Focus/Plan Next Note Type Treatment Note Next Visit Plan review exercises; advance RDL to w/wt as able manual: STM to HS and calf, work on hip and ankle mobility on L and knee mobs consider taping
--- NOTE | 2024-07-22 11:02 | PT.OTN ---
Current Diagnoses Pain in left knee (07/22/24) Spondylolisthesis, lumbar region (07/22/24) Cervicalgia (07/22/24) Physical Therapy Treatment Note PT-OP-A Visit Information Start: 07/14/24 17:52 Freq: Status: Active Protocol: Document 07/22/24 08:07 [facility] (Rec: 07/22/24 11:02 [facility] [id number]) Out-Patient Physical Therapy Visit Information Visit Information Visit Type Treatment Note Visit Note 01/17 [email or web address] Access Code: [email or web address] Visit Start Time 09:03 Visit Stop Time 09:47 Visit Number 3 Number of UNIX ARCHITECT Visits 1 PT-OP-B Current Condition Start: 07/14/24 17:52 Freq: Status: Active Protocol: Document 07/15/24 09:44 [facility] (Rec: 07/15/24 11:23 [facility] [id number]) Current Condition History of Current Condition Onset Date chronic; last spring Current Complaints back and neck pain;L knee History of Current Condition Pt reports L5-S1 spondy was found in xray when livign in [place]. Used to be a middisatnce runner but stopped d/t pain about 10 years ago. She walks now was rowing at a gym. Stopped rowing d/t no longer has membership. She is very active. Hx of L elbow fx and radius dislocation w/ surgery. Notes osteophytes in neck and has some pain w/ looking up. Last spring was in [place], after doing a lot of stairs, she started having post knee tightness. It hasn't gotten better or worse w/ exercise. Walks daily and doing some weights at home. denies numbness/tingling. Pt's was doing full CG for for several months after had severe stroke which did a number on her back in 2017 then he went to a SNF where she still did bathing. Treatment Goals Patient/Caregiver Goals more flexibity in leg to do floor exercises. PT-OP-C Subjective Start: 07/14/24 17:52 Freq: Status: Active Protocol: Document 07/22/24 08:07 [facility] (Rec: 07/22/24 11:02 [facility] [id number]) OP-PT Subjective Patient Comments Patient Comments Patient reports she is the same. Patient declined trial of taping. PT-OP-D Balance Start: 07/14/24 17:52 Freq: Status: Active Protocol: Document 07/15/24 09:44 [facility] (Rec: 07/15/24 11:23 [facility] [id number]) Balance Tests Single Limb Standing Single Limb- Right opp hip drop >30 sec Single Limb- Left lat lean L >30 sec PT-OP-F Manual Assessment Start: 07/14/24 17:52 Freq: Status: Active Protocol: Document 07/15/24 09:44 [facility] (Rec: 07/15/24 11:23 [facility] [id number]) Manual Assessments Soft Tissue Assessment Soft Tissue Mobility Assessment tightness HS, calf and ITB L PT-OP-G Mobility & Gait Start: 07/14/24 17:52 Freq: Status: Active Protocol: Document 07/15/24 09:44 [facility] (Rec: 07/15/24 11:23 [facility] [id number]) OP Gait Assessment Comments Gait Comments dec L push up/hip ext and dec stance time LLE PT-OP-J Posture/Palpation/Skin Start: 07/14/24 17:52 Freq: Status: Active Protocol: Document 07/15/24 09:44 [facility] (Rec: 07/15/24 11:23 [facility] [id number]) Posture Evaluation [facility] Postural Classification System Lumbar Protective Mechanism Left AP 0 Lumbar Protective Mechanism Right AP 0 Lumbar Protective Mechanism Left PA 3 Lumbar Protective Mechanism Right PA 1 Comments Posture Comments L pelvis higher, equal greater trocanters, L femur IR significant; B toe out mild; L >R pronation PT-OP-K Range of Motion Start: 07/14/24 17:52 Freq: Status: Active Protocol: Document 07/15/24 09:44 [facility] (Rec: 07/15/24 11:23 [facility] [id number]) Knee Goniometric Range of Motion Knee Right Flexion Active (degrees) 135 Extension Active (degrees) 0 Left Flexion Active (degrees) 135 Extension Active (degrees) 0 Ankle and Foot Goniometric Range of Motion Ankle and Foot ROM Limitations Comments Knee to wall: R:3 in L:2.5 in PT-OP-L Special Tests Start: 07/14/24 17:52 Freq: Status: Active Protocol: Document 07/15/24 09:44 [facility] (Rec: 07/15/24 11:23 [facility] [id number]) Special Tests Knee Special Tests Evelyne Comments L minor imporved ant knee pain SLR Comments 75 deg L; R 90 deg SLump Comments neg ext sit and slump B-mild tightness PT-OP-M Strength Start: 07/14/24 17:52 Freq: Status: Active Protocol: Document 07/15/24 09:44 [facility] (Rec: 07/15/24 11:23 [facility] [id number]) Hip Strength Hip Manual Muscle Testing Right Flexion (L2) 4- Good- Extension (S1) 4- Good- Abduction 4- Good- Adduction 4 Good External Rotation 4- Good- Internal Rotation 4- Good- Left Flexion (L2) 4- Good- Extension (S1) 4- Good- Abduction 4- Good- Adduction 4- Good- External Rotation 4- Good- Internal Rotation 4- Good- Knee Strength Knee Manual Muscle Testing Right Flexion (S2) 4- Good- Extension (L3) 4+ Good+ Left Flexion (S2) 4- Good- Extension (L3) 4+ Good+ Comments pain mild ant knee w/ext Ankle/Foot Strength Ankle and Foot Manual Muscle Testing Right Dorsiflexion (L4) 5 Normal Plantarflexion (S1) 5 Normal Left Dorsiflexion (L4) 5 Normal Plantarflexion (S1) 5 Normal Comments 20 heel raises B- more calf tension L PT-OP-Q Treatments Start: 07/14/24 17:52 Freq: Status: Active Protocol: Document 07/22/24 08:07 [facility] (Rec: 07/22/24 11:02 [id number]) Therapeutic Exercises Sitting Exercises seated hip abduction with band Sitting Exercise Name HEP Resistance level 4 blue band Reps/Minutes one minute X 1 Comments Verbal cues HS curl Side left Equipment Used L3 Reps/Minutes 20 Comments Verbal cues for LE positioning Standing Exercises lift Reps/Minutes X10 Comments monitored for pain, verbal cues to use self tactile cues for hip hinge sit to stand with band Resistance blue Reps/Minutes 2X10 Comments Patient ed use of self tactile cues for hip hinge stretches Standing Exercise Name 1. gastroc and soleus on step 2. standing HS Side bilateral Reps/Minutes 1. 1 minX2 each 2. 30 sec ea X 2 Manual Therapy Treatment Consent Patient gave verbal consent for manual Yes treatment Soft Tissue Mobilization left calf Mobilization Type Cross-Friction,Rolling Body Position Prone Comments with AROM DF HS Body Location L Mobilization Type Rolling Intensity/Depth Moderate Body Position Prone Comments with AROM knee flexion and without PT-OP-T Assessment and Plan Start: 07/14/24 17:52 Freq: Status: Active Protocol: Document 07/22/24 08:07 [facility] (Rec: 07/22/24 11:02 [facility] [id number]) Physical Therapy Assessment Goals pain Retirement Goal (LTG) Pt will report no constant L knee pain LTG Duration 10/07 activities Short Term Goal (STG) Pt will report dec pain w/ transitions STG Duration 08/24 Retirement Goal (LTG) Pt will be able to do all sitting/ground stretches and exercises w/o inc L post knee pain LTG Duration 10/07 strength Short Term Goal (STG) Pt will be indep w/hEP STG Duration 08/24 Retirement Goal (LTG) Pt will score at least 4+/5 on all BLE MMT and at least 3/5 on LPM to show improved stability in order to dec pain during daily activities. LTG Duration 10/07 Assessment Summary Assessment Patient reports feeling the same end of session, comments left HS still feels stiffer than right. Physical Therapy Plan Frequency and Duration Frequency of Treatment 1-2x/wk Duration of treatment (weeks) 12 Plan of Care Start Date 07/15/24 Plan of Care End Date 10/07/24 Next Visit Focus/Plan Next Note Type Treatment Note Next Visit Plan review exercises; advance RDL to w/wt as able/possibly single leg lift to mat height manual: STM to HS and calf, work on hip and ankle mobility on L and knee mobs
--- NOTE | 2024-07-26 09:49 | PT.OTN ---
Current Diagnoses Pain in left knee (07/26/24) Spondylolisthesis, lumbar region (07/26/24) Cervicalgia (07/26/24) Physical Therapy Treatment Note PT-OP-A Visit Information Start: 07/14/24 17:52 Freq: Status: Active Protocol: Document 07/26/24 09:01 [facility] (Rec: 07/26/24 09:49 [facility] [id number]) Out-Patient Physical Therapy Visit Information Visit Information Visit Type Treatment Note Visit Note 02/17 [email or web address] Access Code: [email or web address] Visit Start Time 09:05 Visit Stop Time 09:45 Visit Number 4 Number of FIELD RECRUITER Visits 0 PT-OP-B Current Condition Start: 07/14/24 17:52 Freq: Status: Active Protocol: Document 07/15/24 09:44 [facility] (Rec: 07/15/24 11:23 [facility] [id number]) Current Condition History of Current Condition Onset Date chronic; last spring Current Complaints back and neck pain;L knee History of Current Condition Pt reports L5-S1 spondy was found in xray when livign in [place]. Used to be a middisatnce runner but stopped d/t pain about 10 years ago. She walks now was rowing at a gym. Stopped rowing d/t no longer has membership. She is very active. Hx of L elbow fx and radius dislocation w/ surgery. Notes osteophytes in neck and has some pain w/ looking up. Last spring was in [place], after doing a lot of stairs, she started having post knee tightness. It hasn't gotten better or worse w/ exercise. Walks daily and doing some weights at home. denies numbness/tingling. Pt's was doing full CG for for several months after had severe stroke which did a number on her back in 2017 then he went to a SNF where she still did bathing. Treatment Goals Patient/Caregiver Goals more flexibity in leg to do floor exercises. PT-OP-C Subjective Start: 07/14/24 17:52 Freq: Status: Active Protocol: Document 07/26/24 09:01 [facility] (Rec: 07/26/24 09:49 [facility] [id number]) OP-PT Subjective Patient Comments Patient Comments no major change. compliance w/ HEP PT-OP-D Balance Start: 07/14/24 17:52 Freq: Status: Active Protocol: Document 07/15/24 09:44 [facility] (Rec: 07/15/24 11:23 [facility] [id number]) Balance Tests Single Limb Standing Single Limb- Right opp hip drop >30 sec Single Limb- Left lat lean L >30 sec PT-OP-F Manual Assessment Start: 07/14/24 17:52 Freq: Status: Active Protocol: Document 07/15/24 09:44 [facility] (Rec: 07/15/24 11:23 [facility] [id number]) Manual Assessments Soft Tissue Assessment Soft Tissue Mobility Assessment tightness HS, calf and ITB L PT-OP-G Mobility & Gait Start: 07/14/24 17:52 Freq: Status: Active Protocol: Document 07/15/24 09:44 [facility] (Rec: 07/15/24 11:23 [facility] [id number]) OP Gait Assessment Comments Gait Comments dec L push up/hip ext and dec stance time LLE PT-OP-J Posture/Palpation/Skin Start: 07/14/24 17:52 Freq: Status: Active Protocol: Document 07/15/24 09:44 [facility] (Rec: 07/15/24 11:23 [facility] [id number]) Posture Evaluation [facility] Postural Classification System Lumbar Protective Mechanism Left AP 0 Lumbar Protective Mechanism Right AP 0 Lumbar Protective Mechanism Left PA 3 Lumbar Protective Mechanism Right PA 1 Comments Posture Comments L pelvis higher, equal greater trocanters, L femur IR significant; B toe out mild; L >R pronation PT-OP-K Range of Motion Start: 07/14/24 17:52 Freq: Status: Active Protocol: Document 07/15/24 09:44 [facility] (Rec: 07/15/24 11:23 [facility] [id number]) Knee Goniometric Range of Motion Knee Right Flexion Active (degrees) 135 Extension Active (degrees) 0 Left Flexion Active (degrees) 135 Extension Active (degrees) 0 Ankle and Foot Goniometric Range of Motion Ankle and Foot ROM Limitations Comments Knee to wall: R:3 in L:2.5 in PT-OP-L Special Tests Start: 07/14/24 17:52 Freq: Status: Active Protocol: Document 07/15/24 09:44 [facility] (Rec: 07/15/24 11:23 [facility] [id number]) Special Tests Knee Special Tests Stubbs Comments L minor imporved ant knee pain SLR Comments 75 deg L; R 90 deg SLump Comments neg ext sit and slump B-mild tightness PT-OP-M Strength Start: 07/14/24 17:52 Freq: Status: Active Protocol: Document 07/15/24 09:44 [facility] (Rec: 07/15/24 11:23 [facility] [id number]) Hip Strength Hip Manual Muscle Testing Right Flexion (L2) 4- Good- Extension (S1) 4- Good- Abduction 4- Good- Adduction 4 Good External Rotation 4- Good- Internal Rotation 4- Good- Left Flexion (L2) 4- Good- Extension (S1) 4- Good- Abduction 4- Good- Adduction 4- Good- External Rotation 4- Good- Internal Rotation 4- Good- Knee Strength Knee Manual Muscle Testing Right Flexion (S2) 4- Good- Extension (L3) 4+ Good+ Left Flexion (S2) 4- Good- Extension (L3) 4+ Good+ Comments pain mild ant knee w/ext Ankle/Foot Strength Ankle and Foot Manual Muscle Testing Right Dorsiflexion (L4) 5 Normal Plantarflexion (S1) 5 Normal Left Dorsiflexion (L4) 5 Normal Plantarflexion (S1) 5 Normal Comments 20 heel raises B- more calf tension L PT-OP-Q Treatments Start: 07/14/24 17:52 Freq: Status: Active Protocol: Document 07/26/24 09:01 [facility] (Rec: 07/26/24 09:49 [facility] [id number]) Therapeutic Exercises Sitting Exercises seated hip abduction with band Sitting Exercise Name HEP review Resistance level 4 blue band Reps/Minutes one minute X 1 HS curl Sitting Exercise Name cues slow and controlled Side bilateral Equipment Used L3 Reps/Minutes 15 Comments R leg on step in knee ext to inc range Standing Exercises RDL Standing Exercise Name 1. DL 2. SL kickstand Side bilateral Equipment Used 5# ea hand w/DL only Reps/Minutes 1.15 2. 10 ea Comments cues slow and min cues for position sit to stand with band Resistance L4 Reps/Minutes 15 Comments cues for knee position Manual Therapy Treatment Consent Patient gave verbal consent for manual Yes treatment Soft Tissue Mobilization HS Body Location L med Hs & circumfrential Mobilization Type Rolling Intensity/Depth Moderate Body Position Supine Comments w/SLR and AA HS stretch Joint Mobilizations tibfib Joint proximal AP FM w/c/r knee flex tibiofemoral Joint L AP femur FM w/c/r flex patellofemoral Joint L Direction sup, inf, med PT-OP-T Assessment and Plan Start: 07/14/24 17:52 Freq: Status: Active Protocol: Document 07/26/24 09:01 [facility] (Rec: 07/26/24 09:49 [facility] [id number]) Physical Therapy Assessment Goals pain Sales Donor Recruitment Representative Goal (LTG) Pt will report no constant L knee pain LTG Duration 10/07 activities Short Term Goal (STG) Pt will report dec pain w/ transitions STG Duration 08/24 Sales Donor Recruitment Representative Goal (LTG) Pt will be able to do all sitting/ground stretches and exercises w/o inc L post knee pain LTG Duration 10/07 strength Short Term Goal (STG) Pt will be indep w/hEP STG Duration 08/24 [facility] Goal (LTG) Pt will score at least 4+/5 on all BLE MMT and at least 3/5 on LPM to show improved stability in order to dec pain during daily activities. LTG Duration 10/07 Assessment Summary Assessment Pt did well with strengthening but needs cues for slow controlled motion and to isolate hips w/hip hinges. Improved SLR to AAROM to 90 deg after. Physical Therapy Plan Frequency and Duration Frequency of Treatment 1-2x/wk Duration of treatment (weeks) 12 Plan of Care Start Date 07/15/24 Plan of Care End Date 10/07/24 Next Visit Focus/Plan Next Note Type Treatment Note Next Visit Plan advance hip strength and wt w/ kickstand RDL manual: STM to HS and calf, work on hip and ankle mobility on L and knee mobs
--- NOTE | 2024-08-05 16:23 | PT.OTN ---
Current Diagnoses Pain in left knee (08/05/24) Spondylolisthesis, lumbar region (08/05/24) Cervicalgia (08/05/24) Physical Therapy Treatment Note PT-OP-A Visit Information Start: 07/14/24 17:52 Freq: Status: Active Protocol: Document 08/05/24 13:26 [facility] (Rec: 08/05/24 16:23 [facility] [id number]) Out-Patient Physical Therapy Visit Information Visit Information Visit Type Treatment Note Visit Note 02/17 [email or web address] Access Code: [email or web address] Visit Start Time 13:47 Visit Stop Time 14:33 Visit Number 5 Number of REGULATORY SPECIALIST Visits 1 PT-OP-B Current Condition Start: 07/14/24 17:52 Freq: Status: Active Protocol: Document 07/15/24 09:44 [facility] (Rec: 07/15/24 11:23 [facility] [id number]) Current Condition History of Current Condition Onset Date chronic; last spring Current Complaints back and neck pain;L knee History of Current Condition Pt reports L5-S1 spondy was found in xray when livign in [place]. Used to be a middisatnce runner but stopped d/t pain about 10 years ago. She walks now was rowing at a gym. Stopped rowing d/t no longer has membership. She is very active. Hx of L elbow fx and radius dislocation w/ surgery. Notes osteophytes in neck and has some pain w/ looking up. Last spring was in [place], after doing a lot of stairs, she started having post knee tightness. It hasn't gotten better or worse w/ exercise. Walks daily and doing some weights at home. denies numbness/tingling. Pt's was doing full CG for for several months after had severe stroke which did a number on her back in 2017 then he went to a SNF where she still did bathing. Treatment Goals Patient/Caregiver Goals more flexibity in leg to do floor exercises. PT-OP-C Subjective Start: 07/14/24 17:52 Freq: Status: Active Protocol: Document 08/05/24 13:26 [facility] (Rec: 08/05/24 16:23 [facility] [id number]) OP-PT Subjective Patient Comments Patient Comments Patient reports she did what she could of the exercises when she was in [place]. Patient reports the stiffness in the knee sitting with knee flexed continues to be a problem.( sitting pretzel style) PT-OP-D Balance Start: 07/14/24 17:52 Freq: Status: Active Protocol: Document 07/15/24 09:44 [facility] (Rec: 07/15/24 11:23 [facility] [id number]) Balance Tests Single Limb Standing Single Limb- Right opp hip drop >30 sec Single Limb- Left lat lean L >30 sec PT-OP-F Manual Assessment Start: 07/14/24 17:52 Freq: Status: Active Protocol: Document 07/15/24 09:44 [facility] (Rec: 07/15/24 11:23 [facility] [id number]) Manual Assessments Soft Tissue Assessment Soft Tissue Mobility Assessment tightness HS, calf and ITB L PT-OP-G Mobility & Gait Start: 07/14/24 17:52 Freq: Status: Active Protocol: Document 07/15/24 09:44 [facility] (Rec: 07/15/24 11:23 [facility] [id number]) OP Gait Assessment Comments Gait Comments dec L push up/hip ext and dec stance time LLE PT-OP-J Posture/Palpation/Skin Start: 07/14/24 17:52 Freq: Status: Active Protocol: Document 07/15/24 09:44 [facility] (Rec: 07/15/24 11:23 [facility] [id number]) Posture Evaluation [facility] Postural Classification System Lumbar Protective Mechanism Left AP 0 Lumbar Protective Mechanism Right AP 0 Lumbar Protective Mechanism Left PA 3 Lumbar Protective Mechanism Right PA 1 Comments Posture Comments L pelvis higher, equal greater trocanters, L femur IR significant; B toe out mild; L >R pronation PT-OP-K Range of Motion Start: 07/14/24 17:52 Freq: Status: Active Protocol: Document 07/15/24 09:44 [facility] (Rec: 07/15/24 11:23 [facility] [id number]) Knee Goniometric Range of Motion Knee Right Flexion Active (degrees) 135 Extension Active (degrees) 0 Left Flexion Active (degrees) 135 Extension Active (degrees) 0 Ankle and Foot Goniometric Range of Motion Ankle and Foot ROM Limitations Comments Knee to wall: R:3 in L:2.5 in PT-OP-L Special Tests Start: 07/14/24 17:52 Freq: Status: Active Protocol: Document 07/15/24 09:44 [facility] (Rec: 07/15/24 11:23 [facility] [id number]) Special Tests Knee Special Tests Stubbs Comments L minor imporved ant knee pain SLR Comments 75 deg L; R 90 deg SLump Comments neg ext sit and slump B-mild tightness PT-OP-M Strength Start: 07/14/24 17:52 Freq: Status: Active Protocol: Document 07/15/24 09:44 [facility] (Rec: 07/15/24 11:23 [facility] [id number]) Hip Strength Hip Manual Muscle Testing Right Flexion (L2) 4- Good- Extension (S1) 4- Good- Abduction 4- Good- Adduction 4 Good External Rotation 4- Good- Internal Rotation 4- Good- Left Flexion (L2) 4- Good- Extension (S1) 4- Good- Abduction 4- Good- Adduction 4- Good- External Rotation 4- Good- Internal Rotation 4- Good- Knee Strength Knee Manual Muscle Testing Right Flexion (S2) 4- Good- Extension (L3) 4+ Good+ Left Flexion (S2) 4- Good- Extension (L3) 4+ Good+ Comments pain mild ant knee w/ext Ankle/Foot Strength Ankle and Foot Manual Muscle Testing Right Dorsiflexion (L4) 5 Normal Plantarflexion (S1) 5 Normal Left Dorsiflexion (L4) 5 Normal Plantarflexion (S1) 5 Normal Comments 20 heel raises B- more calf tension L PT-OP-Q Treatments Start: 07/14/24 17:52 Freq: Status: Active Protocol: Document 08/05/24 13:26 [facility] (Rec: 08/05/24 16:23 [facility] [id number]) Therapeutic Exercises Supine Exercises piriformis stretch Side bilateral Reps/Minutes one minute each LE HS stretch Supine Exercise Name from hooklying Side left Reps/Minutes 60 seconds Comments verbal cues modified Misael stretch edge of bed Side bilateral Reps/Minutes one minute each LE Comments with AROM knee flexion Sitting Exercises seated hip abduction with band Sitting Exercise Name HEP review Resistance level 4 blue band Reps/Minutes one minute X 1 Standing Exercises RDL Standing Exercise Name 2. SL kickstand/fwd T Side bilateral Equipment Used 3# one UE Reps/Minutes X10 each LE Comments performed to chair seat height Manual Therapy Treatment Soft Tissue Mobilization hip Body Location glute, piriformis, hip flexor bilaterally left calf Mobilization Type Cross-Friction,Rolling Body Position Prone HS Body Location L Mobilization Type Rolling Intensity/Depth Moderate Body Position Prone Manual Techniques MET for left PI right AI and pubic shot gun Reps/Duration 6 X 6 seconds PT-OP-T Assessment and Plan Start: 07/14/24 17:52 Freq: Status: Active Protocol: Document 08/05/24 13:26 [facility] (Rec: 08/05/24 16:23 [facility] [id number]) Physical Therapy Assessment Goals pain Shelter Goal (LTG) Pt will report no constant L knee pain LTG Duration 10/07 activities Short Term Goal (STG) Pt will report dec pain w/ transitions STG Duration 08/24 Children'S Literature Professor Goal (LTG) Pt will be able to do all sitting/ground stretches and exercises w/o inc L post knee pain LTG Duration 10/07 strength Short Term Goal (STG) Pt will be indep w/hEP STG Duration 08/24 Shelter Goal (LTG) Pt will score at least 4+/5 on all BLE MMT and at least 3/5 on LPM to show improved stability in order to dec pain during daily activities. LTG Duration 10/07 Assessment Summary Assessment Patient reports left knee less stiff when sitting cross legged left LE end of session. Physical Therapy Plan Frequency and Duration Frequency of Treatment 1-2x/wk Duration of treatment (weeks) 12 Plan of Care Start Date 07/15/24 Plan of Care End Date 10/07/24 Next Visit Focus/Plan Next Note Type Treatment Note Next Visit Plan advance hip strength and wt w/ kickstand RDL manual: STM to HS and calf, work on hip and ankle mobility on L and knee mobs
--- NOTE | 2024-08-11 16:30 | PT.OTN ---
Current Diagnoses Pain in left knee (08/11/24) Spondylolisthesis, lumbar region (08/11/24) Cervicalgia (08/11/24) Physical Therapy Treatment Note PT-OP-A Visit Information Start: 07/14/24 17:52 Freq: Status: Active Protocol: Document 08/11/24 13:01 [facility] (Rec: 08/11/24 16:30 [facility] [id number]) Out-Patient Physical Therapy Visit Information Visit Information Visit Type Treatment Note Visit Note 04/19 [email or web address] Access Code: [email or web address] Visit Start Time 14:32 Visit Stop Time 15:18 Visit Number 6 Number of FRUIT LOADER MACHINE OPERATOR Visits 2 PT-OP-B Current Condition Start: 07/14/24 17:52 Freq: Status: Active Protocol: Document 07/15/24 09:44 [facility] (Rec: 07/15/24 11:23 [facility] [id number]) Current Condition History of Current Condition Onset Date chronic; last spring Current Complaints back and neck pain;L knee History of Current Condition Pt reports L5-S1 spondy was found in xray when livign in [place]. Used to be a middisatnce runner but stopped d/t pain about 10 years ago. She walks now was rowing at a gym. Stopped rowing d/t no longer has membership. She is very active. Hx of L elbow fx and radius dislocation w/ surgery. Notes osteophytes in neck and has some pain w/ looking up. Last spring was in [place], after doing a lot of stairs, she started having post knee tightness. It hasn't gotten better or worse w/ exercise. Walks daily and doing some weights at home. denies numbness/tingling. Pt's was doing full CG for for several months after had severe stroke which did a number on her back in 2017 then he went to a SNF where she still did bathing. Treatment Goals Patient/Caregiver Goals more flexibity in leg to do floor exercises. PT-OP-C Subjective Start: 07/14/24 17:52 Freq: Status: Active Protocol: Document 08/11/24 13:01 [facility] (Rec: 08/11/24 16:30 [facility] [id number]) OP-PT Subjective Patient Comments Patient Comments Patient reports having difficulty being in waiting area due to stroke patients in waiting area. Patient reports the knee is the same, does the exercises when she can do them, furnace is out at mother 's house and has been deaing with it. Patient reports she has a little pain when getting up from floor left knee. PT-OP-D Balance Start: 07/14/24 17:52 Freq: Status: Active Protocol: Document 07/15/24 09:44 [facility] (Rec: 07/15/24 11:23 [facility] [id number]) Balance Tests Single Limb Standing Single Limb- Right opp hip drop >30 sec Single Limb- Left lat lean L >30 sec PT-OP-F Manual Assessment Start: 07/14/24 17:52 Freq: Status: Active Protocol: Document 07/15/24 09:44 [facility] (Rec: 07/15/24 11:23 [facility] [id number]) Manual Assessments Soft Tissue Assessment Soft Tissue Mobility Assessment tightness HS, calf and ITB L PT-OP-G Mobility & Gait Start: 07/14/24 17:52 Freq: Status: Active Protocol: Document 07/15/24 09:44 [facility] (Rec: 07/15/24 11:23 [facility] [id number]) OP Gait Assessment Comments Gait Comments dec L push up/hip ext and dec stance time LLE PT-OP-J Posture/Palpation/Skin Start: 07/14/24 17:52 Freq: Status: Active Protocol: Document 07/15/24 09:44 [facility] (Rec: 07/15/24 11:23 [facility] [id number]) Posture Evaluation [facility] Postural Classification System Lumbar Protective Mechanism Left AP 0 Lumbar Protective Mechanism Right AP 0 Lumbar Protective Mechanism Left PA 3 Lumbar Protective Mechanism Right PA 1 Comments Posture Comments L pelvis higher, equal greater trocanters, L femur IR significant; B toe out mild; L >R pronation PT-OP-K Range of Motion Start: 07/14/24 17:52 Freq: Status: Active Protocol: Document 07/15/24 09:44 [facility] (Rec: 07/15/24 11:23 [facility] [id number]) Knee Goniometric Range of Motion Knee Right Flexion Active (degrees) 135 Extension Active (degrees) 0 Left Flexion Active (degrees) 135 Extension Active (degrees) 0 Ankle and Foot Goniometric Range of Motion Ankle and Foot ROM Limitations Comments Knee to wall: R:3 in L:2.5 in PT-OP-L Special Tests Start: 07/14/24 17:52 Freq: Status: Active Protocol: Document 07/15/24 09:44 [facility] (Rec: 07/15/24 11:23 [facility] [id number]) Special Tests Knee Special Tests Stubbs Comments L minor imporved ant knee pain SLR Comments 75 deg L; R 90 deg SLump Comments neg ext sit and slump B-mild tightness PT-OP-M Strength Start: 07/14/24 17:52 Freq: Status: Active Protocol: Document 07/15/24 09:44 [facility] (Rec: 07/15/24 11:23 [facility] [id number]) Hip Strength Hip Manual Muscle Testing Right Flexion (L2) 4- Good- Extension (S1) 4- Good- Abduction 4- Good- Adduction 4 Good External Rotation 4- Good- Internal Rotation 4- Good- Left Flexion (L2) 4- Good- Extension (S1) 4- Good- Abduction 4- Good- Adduction 4- Good- External Rotation 4- Good- Internal Rotation 4- Good- Knee Strength Knee Manual Muscle Testing Right Flexion (S2) 4- Good- Extension (L3) 4+ Good+ Left Flexion (S2) 4- Good- Extension (L3) 4+ Good+ Comments pain mild ant knee w/ext Ankle/Foot Strength Ankle and Foot Manual Muscle Testing Right Dorsiflexion (L4) 5 Normal Plantarflexion (S1) 5 Normal Left Dorsiflexion (L4) 5 Normal Plantarflexion (S1) 5 Normal Comments 20 heel raises B- more calf tension L PT-OP-Q Treatments Start: 07/14/24 17:52 Freq: Status: Active Protocol: Document 08/11/24 13:01 [facility] (Rec: 08/11/24 16:30 [facility] [id number]) Therapeutic Exercises Supine Exercises piriformis stretch Side bilateral Reps/Minutes one minute each LE modified Misael stretch edge of bed Side bilateral Reps/Minutes one minute each LE Sitting Exercises seated hip abduction with band Sitting Exercise Name HEP level 5 to HEP Resistance level 5 teal band Reps/Minutes one minute X 1 Standing Exercises RDL Standing Exercise Name kickstand/fwd T HEP Side bilateral Equipment Used 5# one UE Reps/Minutes X10 each LE Comments performed to chair seat height sit to stand with band Standing Exercise Name HEP Resistance L5 Reps/Minutes 2X10 Comments cues for knee position Manual Therapy Treatment Consent Patient gave verbal consent for manual Yes treatment Soft Tissue Mobilization hip Body Location glute, piriformis, hip flexor bilaterally Mobilization Type Cross-Friction,Rolling Intensity/Depth Moderate left calf Mobilization Type Cross-Friction,Rolling Body Position Prone HS Body Location HS and quad Mobilization Type Rolling Intensity/Depth Moderate Body Position Hooklying Joint Mobilizations tibiofemoral Joint PA Reps/Duration X10 X2 patellofemoral Joint L Direction sup, inf, med Body Position Supine Reps/Duration X10 each direction Manual Techniques MET for left PI right AI and pubic shot gun Reps/Duration 6 X 6 seconds PT-OP-T Assessment and Plan Start: 07/14/24 17:52 Freq: Status: Active Protocol: Document 08/11/24 13:01 [facility] (Rec: 08/11/24 16:30 AB [id number]) Physical Therapy Assessment Goals pain C2 Tactical Analysis Technician Goal (LTG) Pt will report no constant L knee pain LTG Duration 10/07 activities Short Term Goal (STG) Pt will report dec pain w/ transitions STG Duration 08/24 [facility] Goal (LTG) Pt will be able to do all sitting/ground stretches and exercises w/o inc L post knee pain LTG Duration 10/07 strength Short Term Goal (STG) Pt will be indep w/hEP STG Duration 08/24 C2 Tactical Analysis Technician Goal (LTG) Pt will score at least 4+/5 on all BLE MMT and at least 3/5 on LPM to show improved stability in order to dec pain during daily activities. LTG Duration 10/07 Assessment Summary Assessment Patient reports having no pain end of session, Good return demonstration for squats, forward T to chair seat this session. Physical Therapy Plan Frequency and Duration Frequency of Treatment 1-2x/wk Duration of treatment (weeks) 12 Plan of Care Start Date 07/15/24 Plan of Care End Date 10/07/24 Next Visit Focus/Plan Next Note Type Treatment Note Next Visit Plan advance hip strength and wt w/ kickstand RDL manual: STM to HS and calf, work on hip and ankle mobility on L and knee mobs
--- NOTE | 2024-08-19 17:15 | PT.OTN ---
Current Diagnoses Pain in left knee (08/19/24) Spondylolisthesis, lumbar region (08/19/24) Cervicalgia (08/19/24) Physical Therapy Treatment Note PT-OP-A Visit Information Start: 07/14/24 17:52 Freq: Status: Active Protocol: Document 08/19/24 15:20 [facility] (Rec: 08/19/24 17:15 [facility] [id number]) Out-Patient Physical Therapy Visit Information Visit Information Visit Type Treatment Note Visit Note 11/19 [email or web address] Access Code: [email or web address] Visit Start Time 15:20 Visit Stop Time 16:00 Visit Number 7 Number of ABSTRACT MANAGER Visits 0 PT-OP-B Current Condition Start: 07/14/24 17:52 Freq: Status: Active Protocol: Document 07/15/24 09:44 [facility] (Rec: 07/15/24 11:23 [facility] [id number]) Current Condition History of Current Condition Onset Date chronic; last spring Current Complaints back and neck pain;L knee History of Current Condition Pt reports L5-S1 spondy was found in xray when livign in [place]. Used to be a middisatnce runner but stopped d/t pain about 10 years ago. She walks now was rowing at a gym. Stopped rowing d/t no longer has membership. She is very active. Hx of L elbow fx and radius dislocation w/ surgery. Notes osteophytes in neck and has some pain w/ looking up. Last spring was in [place], after doing a lot of stairs, she started having post knee tightness. It hasn't gotten better or worse w/ exercise. Walks daily and doing some weights at home. denies numbness/tingling. Pt's was doing full CG for for several months after had severe stroke which did a number on her back in 2017 then he went to a SNF where she still did bathing. Treatment Goals Patient/Caregiver Goals more flexibity in leg to do floor exercises. PT-OP-C Subjective Start: 07/14/24 17:52 Freq: Status: Active Protocol: Document 08/19/24 15:20 [facility] (Rec: 08/19/24 17:15 [facility] [id number]) OP-PT Subjective Patient Comments Patient Comments pt reports she hs been doing her exercises. noting some lat knee pain inc recently PT-OP-D Balance Start: 07/14/24 17:52 Freq: Status: Active Protocol: Document 07/15/24 09:44 [facility] (Rec: 07/15/24 11:23 [facility] [id number]) Balance Tests Single Limb Standing Single Limb- Right opp hip drop >30 sec Single Limb- Left lat lean L >30 sec PT-OP-F Manual Assessment Start: 07/14/24 17:52 Freq: Status: Active Protocol: Document 07/15/24 09:44 [facility] (Rec: 07/15/24 11:23 [facility] [id number]) Manual Assessments Soft Tissue Assessment Soft Tissue Mobility Assessment tightness HS, calf and ITB L PT-OP-G Mobility & Gait Start: 07/14/24 17:52 Freq: Status: Active Protocol: Document 07/15/24 09:44 [facility] (Rec: 07/15/24 11:23 [facility] [id number]) OP Gait Assessment Comments Gait Comments dec L push up/hip ext and dec stance time LLE PT-OP-J Posture/Palpation/Skin Start: 07/14/24 17:52 Freq: Status: Active Protocol: Document 08/19/24 15:20 [facility] (Rec: 08/19/24 17:15 [facility] [id number]) Posture Evaluation Alicia Postural Classification System Lumbar Protective Mechanism Left AP 0 Lumbar Protective Mechanism Right AP 1 Lumbar Protective Mechanism Left PA 5 Lumbar Protective Mechanism Right PA 3 PT-OP-K Range of Motion Start: 07/14/24 17:52 Freq: Status: Active Protocol: Document 07/15/24 09:44 [facility] (Rec: 07/15/24 11:23 [facility] [id number]) Knee Goniometric Range of Motion Knee Right Flexion Active (degrees) 135 Extension Active (degrees) 0 Left Flexion Active (degrees) 135 Extension Active (degrees) 0 Ankle and Foot Goniometric Range of Motion Ankle and Foot ROM Limitations Comments Knee to wall: R:3 in L:2.5 in PT-OP-L Special Tests Start: 07/14/24 17:52 Freq: Status: Active Protocol: Document 07/15/24 09:44 [facility] (Rec: 07/15/24 11:23 [facility] [id number]) Special Tests Knee Special Tests Evelyne Comments L minor imporved ant knee pain SLR Comments 75 deg L; R 90 deg SLump Comments neg ext sit and slump B-mild tightness PT-OP-M Strength Start: 07/14/24 17:52 Freq: Status: Active Protocol: Document 08/19/24 15:20 [facility] (Rec: 08/19/24 17:15 [facility] [id number]) Hip Strength Hip Manual Muscle Testing Right Flexion (L2) 4 Good Extension (S1) 4+ Good+ Abduction 4+ Good+ Adduction 5 Normal External Rotation 4 Good Internal Rotation 5 Normal Left Flexion (L2) 4 Good Extension (S1) 4+ Good+ Abduction 4 Good Adduction 4- Good- External Rotation 4 Good Internal Rotation 5 Normal Comments pain in quad w/hip flex Knee Strength Knee Manual Muscle Testing Right Flexion (S2) 4+ Good+ Extension (L3) 4+ Good+ Left Flexion (S2) 4- Good- Extension (L3) 4 Good Comments pain mild ant knee w/ext Ankle/Foot Strength Ankle and Foot Manual Muscle Testing Right Dorsiflexion (L4) 5 Normal Plantarflexion (S1) 5 Normal Left Dorsiflexion (L4) 5 Normal Plantarflexion (S1) 5 Normal Comments 20 heel raises B- PT-OP-Q Treatments Start: 07/14/24 17:52 Freq: Status: Active Protocol: Document 08/19/24 15:20 [facility] (Rec: 08/19/24 17:15 [facility] [id number]) Therapeutic Exercises Supine Exercises isometric Supine Exercise Name DL Side bilateral Reps/Minutes 3x30 sec Sitting Exercises seated hip abduction with band Sitting Exercise Name stopped too easy Resistance level 4 Reps/Minutes one minute X 1 Standing Exercises RDL Standing Exercise Name SL RDL Side bilateral Equipment Used no wt Reps/Minutes 2x5 Comments cues to avoid pelvis rot sit to stand with band Standing Exercise Name HEP Resistance L4 Reps/Minutes 2X10 Comments cues to slow down Manual Therapy Treatment Soft Tissue Mobilization HS Body Location HS and add w/ER Mobilization Type Rolling Intensity/Depth Moderate Body Position Hooklying Joint Mobilizations tibfib Comments proximal PA L tibiofemoral Comments L PA w/APs Taping KT Type of Tape Kinesio Tape Comments along lat knee PT-OP-T Assessment and Plan Start: 07/14/24 17:52 Freq: Status: Active Protocol: Document 08/19/24 15:20 [facility] (Rec: 08/19/24 17:15 [facility] [id number]) Physical Therapy Assessment Goals pain Long-Term Goal (LTG) Pt will report no constant L knee pain 08/19-no change LTG Duration 10/07 activities Short Term Goal (STG) Pt will report dec pain w/ transitions 08/19-lat knee discomfort with squatting and up/down from ground STG Duration 08/24 Residence Supervisor Goal (LTG) Pt will be able to do all sitting/ground stretches and exercises w/o inc L post knee pain 08/19-has been avoiding floor exercises from her program; knee tightness when attempted LTG Duration 10/07 strength Short Term Goal (STG) Pt will be indep w/hEP STG Duration achieved advancing as able Long-Term Goal (LTG) Pt will score at least 4+/5 on all BLE MMT and at least 3/5 on LPM to show improved stability in order to dec pain during daily activities. 08/19-improved LTG Duration 10/07 Assessment Summary Assessment Pt showing improved strength w /activities but still noting L knee pain and tightness post. She still demonstrates weakness and myofascial restrictions and will benefit from cont PT to improve this. Physical Therapy Plan Frequency and Duration Frequency of Treatment 1-2x/wk Duration of treatment (weeks) 12 Plan of Care Start Date 07/15/24 Plan of Care End Date 10/07/24 Therapeutic Interventions Therapeutic Interventions Balance Training,Gait Training ,Home Exercise Program,Joint Mobilizations,Manual Therapy, Neuromuscular Re-education, Patient/Caregiver Education, Self-Care/Home Management,Soft Tissue Mobilization,Taping, Therapeutic Activities, Therapeutic Exercises Modalities Cold Pack/Ice Massage,Electric Stimulation,Hot Packs, Infrared Therapy,Ultrasound Next Visit Focus/Plan Next Note Type Treatment Note Next Visit Plan work on add mm, cirfumfrential MFR w/knee flex and hip ER; work on L hip ER, review exercises from this session
--- NOTE | 2024-08-23 15:36 | PT.OTN ---
Current Diagnoses Pain in left knee (08/23/24) Spondylolisthesis, lumbar region (08/23/24) Cervicalgia (08/23/24) Physical Therapy Treatment Note PT-OP-A Visit Information Start: 07/14/24 17:52 Freq: Status: Active Protocol: Document 08/23/24 13:43 [facility] (Rec: 08/23/24 15:36 [facility] [id number]) Out-Patient Physical Therapy Visit Information Visit Information Visit Type Treatment Note Visit Note 06/19 [email or web address] Access Code: [email or web address] Visit Start Time 14:35 Visit Stop Time 15:20 Visit Number 8 Number of SCHOOL LIBRARY MEDIA SPECIALIST Visits 1 PT-OP-B Current Condition Start: 07/14/24 17:52 Freq: Status: Active Protocol: Document 07/15/24 09:44 [facility] (Rec: 07/15/24 11:23 [facility] [id number]) Current Condition History of Current Condition Onset Date chronic; last spring Current Complaints back and neck pain;L knee History of Current Condition Pt reports L5-S1 spondy was found in xray when livign in [place]. Used to be a middisatnce runner but stopped d/t pain about 10 years ago. She walks now was rowing at a gym. Stopped rowing d/t no longer has membership. She is very active. Hx of L elbow fx and radius dislocation w/ surgery. Notes osteophytes in neck and has some pain w/ looking up. Last spring was in [place], after doing a lot of stairs, she started having post knee tightness. It hasn't gotten better or worse w/ exercise. Walks daily and doing some weights at home. denies numbness/tingling. Pt's was doing full CG for for several months after had severe stroke which did a number on her back in 2017 then he went to a SNF where she still did bathing. Treatment Goals Patient/Caregiver Goals more flexibity in leg to do floor exercises. PT-OP-C Subjective Start: 07/14/24 17:52 Freq: Status: Active Protocol: Document 08/23/24 13:43 [facility] (Rec: 08/23/24 15:36 [facility] [id number]) OP-PT Subjective Patient Comments Patient Comments Patient reports she didn't do all her exercises, due to cooking for company. Patient reports she didn't feel much of a difference. PT-OP-D Balance Start: 07/14/24 17:52 Freq: Status: Active Protocol: Document 07/15/24 09:44 [facility] (Rec: 07/15/24 11:23 [facility] [id number]) Balance Tests Single Limb Standing Single Limb- Right opp hip drop >30 sec Single Limb- Left lat lean L >30 sec PT-OP-F Manual Assessment Start: 07/14/24 17:52 Freq: Status: Active Protocol: Document 07/15/24 09:44 [facility] (Rec: 07/15/24 11:23 [facility] [id number]) Manual Assessments Soft Tissue Assessment Soft Tissue Mobility Assessment tightness HS, calf and ITB L PT-OP-G Mobility & Gait Start: 07/14/24 17:52 Freq: Status: Active Protocol: Document 07/15/24 09:44 [facility] (Rec: 07/15/24 11:23 [facility] [id number]) OP Gait Assessment Comments Gait Comments dec L push up/hip ext and dec stance time LLE PT-OP-J Posture/Palpation/Skin Start: 07/14/24 17:52 Freq: Status: Active Protocol: Document 08/19/24 15:20 [facility] (Rec: 08/19/24 17:15 [facility] [id number]) Posture Evaluation Alicia Postural Classification System Lumbar Protective Mechanism Left AP 0 Lumbar Protective Mechanism Right AP 1 Lumbar Protective Mechanism Left PA 5 Lumbar Protective Mechanism Right PA 3 PT-OP-K Range of Motion Start: 07/14/24 17:52 Freq: Status: Active Protocol: Document 07/15/24 09:44 [facility] (Rec: 07/15/24 11:23 [facility] [id number]) Knee Goniometric Range of Motion Knee Right Flexion Active (degrees) 135 Extension Active (degrees) 0 Left Flexion Active (degrees) 135 Extension Active (degrees) 0 Ankle and Foot Goniometric Range of Motion Ankle and Foot ROM Limitations Comments Knee to wall: R:3 in L:2.5 in PT-OP-L Special Tests Start: 07/14/24 17:52 Freq: Status: Active Protocol: Document 07/15/24 09:44 [facility] (Rec: 07/15/24 11:23 [facility] [id number]) Special Tests Knee Special Tests Stubbs Comments L minor imporved ant knee pain SLR Comments 75 deg L; R 90 deg SLump Comments neg ext sit and slump B-mild tightness PT-OP-M Strength Start: 07/14/24 17:52 Freq: Status: Active Protocol: Document 08/19/24 15:20 [facility] (Rec: 08/19/24 17:15 [facility] [id number]) Hip Strength Hip Manual Muscle Testing Right Flexion (L2) 4 Good Extension (S1) 4+ Good+ Abduction 4+ Good+ Adduction 5 Normal External Rotation 4 Good Internal Rotation 5 Normal Left Flexion (L2) 4 Good Extension (S1) 4+ Good+ Abduction 4 Good Adduction 4- Good- External Rotation 4 Good Internal Rotation 5 Normal Comments pain in quad w/hip flex Knee Strength Knee Manual Muscle Testing Right Flexion (S2) 4+ Good+ Extension (L3) 4+ Good+ Left Flexion (S2) 4- Good- Extension (L3) 4 Good Comments pain mild ant knee w/ext Ankle/Foot Strength Ankle and Foot Manual Muscle Testing Right Dorsiflexion (L4) 5 Normal Plantarflexion (S1) 5 Normal Left Dorsiflexion (L4) 5 Normal Plantarflexion (S1) 5 Normal Comments 20 heel raises B- PT-OP-Q Treatments Start: 07/14/24 17:52 Freq: Status: Active Protocol: Document 08/23/24 13:43 [facility] (Rec: 08/23/24 15:36 [id number]) Therapeutic Exercises Supine Exercises isometric Supine Exercise Name DL Side bilateral Reps/Minutes 3x30 sec piriformis stretch Side bilateral Reps/Minutes one minute each LE Standing Exercises step up step down Standing Exercise Name with and without UE use 6 and 8 inch step Side left Reps/Minutes pre and post manual tape removed, no tape, tape re applied Comments monitored for pain RDL Standing Exercise Name SL RDL Side bilateral Equipment Used no wt Reps/Minutes X8 Comments cues to avoid pelvis rot, Pt ed use of self tactile cues sit to stand with band Standing Exercise Name HEP Resistance L4 Reps/Minutes 2X10 Comments cues to slow down Manual Therapy Treatment Soft Tissue Mobilization left knee Body Location with and without knee flexion on ball Mobilization Type Cross-Friction,Myofascial Release Intensity/Depth Superficial Body Position Hooklying Comments to moderate hip Body Location glute, piriformis, adductor left LE Mobilization Type Cross-Friction,Rolling Intensity/Depth Moderate Taping KT Type of Tape Kinesio Tape Comments along lat knee, also to unload fat pad and improve tracking medially PT-OP-T Assessment and Plan Start: 07/14/24 17:52 Freq: Status: Active Protocol: Document 08/23/24 13:43 [facility] (Rec: 08/23/24 15:36 [facility] [id number]) Physical Therapy Assessment Goals pain Substitute Bus Driver Goal (LTG) Pt will report no constant L knee pain 08/19-no change LTG Duration 10/07 activities Short Term Goal (STG) Pt will report dec pain w/ transitions 08/19-lat knee discomfort with squatting and up/down from ground STG Duration 08/24 Substitute Bus Driver Goal (LTG) Pt will be able to do all sitting/ground stretches and exercises w/o inc L post knee pain 08/19-has been avoiding floor exercises from her program; knee tightness when attempted LTG Duration 10/07 strength Short Term Goal (STG) Pt will be indep w/hEP STG Duration achieved advancing as able Substitute Bus Driver Goal (LTG) Pt will score at least 4+/5 on all BLE MMT and at least 3/5 on LPM to show improved stability in order to dec pain during daily activities. 08/19-improved LTG Duration 10/07 Assessment Summary Assessment Patient reports having no pain with descending stairs throughout session 6 and 8 inch step with UE support. noted increased velocity descending right LE, and reports of left knee pain during second set of squat with chair touch, which was eliminated by performing a squat of less depth. Physical Therapy Plan Frequency and Duration Frequency of Treatment 1-2x/wk Duration of treatment (weeks) 12 Plan of Care Start Date 07/15/24 Plan of Care End Date 10/07/24 Next Visit Focus/Plan Next Note Type Treatment Note Next Visit Plan work on add mm, cirfumfrential MFR w/knee flex and hip ER; work on L hip ER, review exercises from last.
--- NOTE | 2024-08-25 17:12 | PT.OTN ---
Current Diagnoses Pain in left knee (08/25/24) Spondylolisthesis, lumbar region (08/25/24) Cervicalgia (08/25/24) Physical Therapy Treatment Note PT-OP-A Visit Information Start: 07/14/24 17:52 Freq: Status: Active Protocol: Document 08/25/24 13:03 [facility] (Rec: 08/25/24 17:04 [facility] [id number]) Out-Patient Physical Therapy Visit Information Visit Information Visit Type Treatment Note Visit Note 01/17 [email or web address] Access Code: [email or web address] Visit Start Time 13:03 Visit Stop Time 13:45 Visit Number 9 Number of PACKAGING SALES CONSULTANT Visits 0 PT-OP-B Current Condition Start: 07/14/24 17:52 Freq: Status: Active Protocol: Document 07/15/24 09:44 [facility] (Rec: 07/15/24 11:23 [facility] [id number]) Current Condition History of Current Condition Onset Date chronic; last spring Current Complaints back and neck pain;L knee History of Current Condition Pt reports L5-S1 spondy was found in xray when livign in [place]. Used to be a middisatnce runner but stopped d/t pain about 10 years ago. She walks now was rowing at a gym. Stopped rowing d/t no longer has membership. She is very active. Hx of L elbow fx and radius dislocation w/ surgery. Notes osteophytes in neck and has some pain w/ looking up. Last spring was in [place], after doing a lot of stairs, she started having post knee tightness. It hasn't gotten better or worse w/ exercise. Walks daily and doing some weights at home. denies numbness/tingling. Pt's was doing full CG for for several months after had severe stroke which did a number on her back in 2017 then he went to a SNF where she still did bathing. Treatment Goals Patient/Caregiver Goals more flexibity in leg to do floor exercises. PT-OP-C Subjective Start: 07/14/24 17:52 Freq: Status: Active Protocol: Document 08/25/24 13:03 [facility] (Rec: 08/25/24 17:04 [facility] [id number]) OP-PT Subjective Patient Comments Patient Comments pt reports pain is not constant but more when bend knees or sit in hurdler or mary cross position PT-OP-D Balance Start: 07/14/24 17:52 Freq: Status: Active Protocol: Document 07/15/24 09:44 [facility] (Rec: 07/15/24 11:23 [facility] [id number]) Balance Tests Single Limb Standing Single Limb- Right opp hip drop >30 sec Single Limb- Left lat lean L >30 sec PT-OP-F Manual Assessment Start: 07/14/24 17:52 Freq: Status: Active Protocol: Document 07/15/24 09:44 [facility] (Rec: 07/15/24 11:23 [facility] [id number]) Manual Assessments Soft Tissue Assessment Soft Tissue Mobility Assessment tightness HS, calf and ITB L PT-OP-G Mobility & Gait Start: 07/14/24 17:52 Freq: Status: Active Protocol: Document 07/15/24 09:44 [facility] (Rec: 07/15/24 11:23 [facility] [id number]) OP Gait Assessment Comments Gait Comments dec L push up/hip ext and dec stance time LLE PT-OP-J Posture/Palpation/Skin Start: 07/14/24 17:52 Freq: Status: Active Protocol: Document 08/19/24 15:20 [facility] (Rec: 08/19/24 17:15 [facility] [id number]) Posture Evaluation Alicia Postural Classification System Lumbar Protective Mechanism Left AP 0 Lumbar Protective Mechanism Right AP 1 Lumbar Protective Mechanism Left PA 5 Lumbar Protective Mechanism Right PA 3 PT-OP-K Range of Motion Start: 07/14/24 17:52 Freq: Status: Active Protocol: Document 07/15/24 09:44 [facility] (Rec: 07/15/24 11:23 [facility] [id number]) Knee Goniometric Range of Motion Knee Right Flexion Active (degrees) 135 Extension Active (degrees) 0 Left Flexion Active (degrees) 135 Extension Active (degrees) 0 Ankle and Foot Goniometric Range of Motion Ankle and Foot ROM Limitations Comments Knee to wall: R:3 in L:2.5 in PT-OP-L Special Tests Start: 07/14/24 17:52 Freq: Status: Active Protocol: Document 07/15/24 09:44 [facility] (Rec: 07/15/24 11:23 [facility] [id number]) Special Tests Knee Special Tests Evelyne Comments L minor imporved ant knee pain SLR Comments 75 deg L; R 90 deg SLump Comments neg ext sit and slump B-mild tightness PT-OP-M Strength Start: 07/14/24 17:52 Freq: Status: Active Protocol: Document 08/19/24 15:20 [facility] (Rec: 08/19/24 17:15 [facility] [id number]) Hip Strength Hip Manual Muscle Testing Right Flexion (L2) 4 Good Extension (S1) 4+ Good+ Abduction 4+ Good+ Adduction 5 Normal External Rotation 4 Good Internal Rotation 5 Normal Left Flexion (L2) 4 Good Extension (S1) 4+ Good+ Abduction 4 Good Adduction 4- Good- External Rotation 4 Good Internal Rotation 5 Normal Comments pain in quad w/hip flex Knee Strength Knee Manual Muscle Testing Right Flexion (S2) 4+ Good+ Extension (L3) 4+ Good+ Left Flexion (S2) 4- Good- Extension (L3) 4 Good Comments pain mild ant knee w/ext Ankle/Foot Strength Ankle and Foot Manual Muscle Testing Right Dorsiflexion (L4) 5 Normal Plantarflexion (S1) 5 Normal Left Dorsiflexion (L4) 5 Normal Plantarflexion (S1) 5 Normal Comments 20 heel raises B- PT-OP-Q Treatments Start: 07/14/24 17:52 Freq: Status: Active Protocol: Document 08/25/24 13:03 [facility] (Rec: 08/25/24 17:04 [facility] [id number]) Therapeutic Exercises Supine Exercises isometric Supine Exercise Name DL Side bilateral Reps/Minutes x30 sec piriformis stretch Side left Reps/Minutes 30 sec Standing Exercises sit to stand with band Standing Exercise Name squat Resistance no band Reps/Minutes 15 Comments comfrotable range Manual Therapy Treatment Consent Patient gave verbal consent for manual Yes treatment Soft Tissue Mobilization left knee Body Location L lat quad Mobilization Type Rolling Intensity/Depth Moderate Joint Mobilizations hip Comments L inf c/r, L ER free the ball tibiofemoral Joint PA in figure 4 position w/wt shift PT-OP-T Assessment and Plan Start: 07/14/24 17:52 Freq: Status: Active Protocol: Document 08/25/24 13:03 [facility] (Rec: 08/25/24 17:04 [facility] [id number]) Physical Therapy Assessment Goals pain Smoking Pipes Cleaner Goal (LTG) Pt will report no constant L knee pain 08/19-no change LTG Duration 10/07 activities Short Term Goal (STG) Pt will report dec pain w/ transitions 08/19-lat knee discomfort with squatting and up/down from ground STG Duration 08/24 Smoking Pipes Cleaner Goal (LTG) Pt will be able to do all sitting/ground stretches and exercises w/o inc L post knee pain 08/19-has been avoiding floor exercises from her program; knee tightness when attempted LTG Duration 10/07 strength Short Term Goal (STG) Pt will be indep w/hEP STG Duration achieved advancing as able Snf Goal (LTG) Pt will score at least 4+/5 on all BLE MMT and at least 3/5 on LPM to show improved stability in order to dec pain during daily activities. 08/19-improved LTG Duration 10/07 Assessment Summary Assessment pt did well manual and reported feeling much better and more loose in her knee. Pt improved w/comfort w/squat w/ o band and smaller range. Physical Therapy Plan Frequency and Duration Frequency of Treatment 1-2x/wk Duration of treatment (weeks) 12 Plan of Care Start Date 07/15/24 Plan of Care End Date 10/07/24 Next Visit Focus/Plan Next Note Type Treatment Note Next Visit Plan work on add mm, cirfumfrential MFR w/knee flex and hip ER and mobs of hip and knee in flex/ER of hip; work on L hip ER, review exercises from last 2 session
--- NOTE | 2024-08-30 18:10 | PT.OTN ---
Current Diagnoses Pain in left knee (08/30/24) Spondylolisthesis, lumbar region (08/30/24) Cervicalgia (08/30/24) Physical Therapy Treatment Note PT-OP-A Visit Information Start: 07/14/24 17:52 Freq: Status: Active Protocol: Document 08/30/24 15:23 [facility] (Rec: 08/30/24 18:09 [facility] [id number]) Out-Patient Physical Therapy Visit Information Visit Information Visit Type Treatment Note Visit Note 02/17 [email or web address] Access Code: [email or web address] Visit Start Time 15:19 Visit Stop Time 16:00 Visit Number 10 Number of RETENTION SPECIALIST Visits 0 PT-OP-B Current Condition Start: 07/14/24 17:52 Freq: Status: Active Protocol: Document 07/15/24 09:44 [facility] (Rec: 07/15/24 11:23 [facility] [id number]) Current Condition History of Current Condition Onset Date chronic; last spring Current Complaints back and neck pain;L knee History of Current Condition Pt reports L5-S1 spondy was found in xray when livign in [place]. Used to be a middisatnce runner but stopped d/t pain about 10 years ago. She walks now was rowing at a gym. Stopped rowing d/t no longer has membership. She is very active. Hx of L elbow fx and radius dislocation w/ surgery. Notes osteophytes in neck and has some pain w/ looking up. Last spring was in [place], after doing a lot of stairs, she started having post knee tightness. It hasn't gotten better or worse w/ exercise. Walks daily and doing some weights at home. denies numbness/tingling. Pt's was doing full CG for for several months after had severe stroke which did a number on her back in 2017 then he went to a SNF where she still did bathing. Treatment Goals Patient/Caregiver Goals more flexibity in leg to do floor exercises. PT-OP-C Subjective Start: 07/14/24 17:52 Freq: Status: Active Protocol: Document 08/30/24 15:23 [facility] (Rec: 08/30/24 18:09 [facility] [id number]) OP-PT Subjective Patient Comments Patient Comments Pt reports she wacked her knee today. Notes she felt looser right after PT but was down on the gorund in ER of LLE PT-OP-D Balance Start: 07/14/24 17:52 Freq: Status: Active Protocol: Document 07/15/24 09:44 [facility] (Rec: 07/15/24 11:23 [facility] [id number]) Balance Tests Single Limb Standing Single Limb- Right opp hip drop >30 sec Single Limb- Left lat lean L >30 sec PT-OP-F Manual Assessment Start: 07/14/24 17:52 Freq: Status: Active Protocol: Document 07/15/24 09:44 [facility] (Rec: 07/15/24 11:23 [facility] [id number]) Manual Assessments Soft Tissue Assessment Soft Tissue Mobility Assessment tightness HS, calf and ITB L PT-OP-G Mobility & Gait Start: 07/14/24 17:52 Freq: Status: Active Protocol: Document 07/15/24 09:44 [facility] (Rec: 07/15/24 11:23 [facility] [id number]) OP Gait Assessment Comments Gait Comments dec L push up/hip ext and dec stance time LLE PT-OP-J Posture/Palpation/Skin Start: 07/14/24 17:52 Freq: Status: Active Protocol: Document 08/19/24 15:20 [facility] (Rec: 08/19/24 17:15 [facility] [id number]) Posture Evaluation [facility] Postural Classification System Lumbar Protective Mechanism Left AP 0 Lumbar Protective Mechanism Right AP 1 Lumbar Protective Mechanism Left PA 5 Lumbar Protective Mechanism Right PA 3 PT-OP-K Range of Motion Start: 07/14/24 17:52 Freq: Status: Active Protocol: Document 07/15/24 09:44 [facility] (Rec: 07/15/24 11:23 [facility] [id number]) Knee Goniometric Range of Motion Knee Right Flexion Active (degrees) 135 Extension Active (degrees) 0 Left Flexion Active (degrees) 135 Extension Active (degrees) 0 Ankle and Foot Goniometric Range of Motion Ankle and Foot ROM Limitations Comments Knee to wall: R:3 in L:2.5 in PT-OP-L Special Tests Start: 07/14/24 17:52 Freq: Status: Active Protocol: Document 07/15/24 09:44 [facility] (Rec: 07/15/24 11:23 [facility] [id number]) Special Tests Knee Special Tests Evelyne Comments L minor imporved ant knee pain SLR Comments 75 deg L; R 90 deg SLump Comments neg ext sit and slump B-mild tightness PT-OP-M Strength Start: 07/14/24 17:52 Freq: Status: Active Protocol: Document 08/19/24 15:20 [facility] (Rec: 08/19/24 17:15 [facility] [id number]) Hip Strength Hip Manual Muscle Testing Right Flexion (L2) 4 Good Extension (S1) 4+ Good+ Abduction 4+ Good+ Adduction 5 Normal External Rotation 4 Good Internal Rotation 5 Normal Left Flexion (L2) 4 Good Extension (S1) 4+ Good+ Abduction 4 Good Adduction 4- Good- External Rotation 4 Good Internal Rotation 5 Normal Comments pain in quad w/hip flex Knee Strength Knee Manual Muscle Testing Right Flexion (S2) 4+ Good+ Extension (L3) 4+ Good+ Left Flexion (S2) 4- Good- Extension (L3) 4 Good Comments pain mild ant knee w/ext Ankle/Foot Strength Ankle and Foot Manual Muscle Testing Right Dorsiflexion (L4) 5 Normal Plantarflexion (S1) 5 Normal Left Dorsiflexion (L4) 5 Normal Plantarflexion (S1) 5 Normal Comments 20 heel raises B- PT-OP-Q Treatments Start: 07/14/24 17:52 Freq: Status: Active Protocol: Document 08/30/24 15:23 [facility] (Rec: 08/30/24 18:09 [facility] [id number]) Manual Therapy Treatment Consent Patient gave verbal consent for manual Yes treatment Soft Tissue Mobilization thigh Body Location L circumfrential Mobilization Type Myofascial Release Intensity/Depth Superficial Comments w/hip flex and ER abdomen Body Location L fascia around descending colon & sigmoid colon w/L hip ER and flex Mobilization Type Myofascial Release Intensity/Depth Deep Body Position Hooklying Comments improved ROM of hip hip Body Location L iliacus Mobilization Type Sustained Pressure Intensity/Depth Moderate Joint Mobilizations hip Comments L inf c/r, L ER free the ball PT-OP-T Assessment and Plan Start: 07/14/24 17:52 Freq: Status: Active Protocol: Document 08/30/24 15:23 [facility] (Rec: 08/30/24 18:09 [facility] [id number]) Physical Therapy Assessment Goals pain Stagecraft Teacher Goal (LTG) Pt will report no constant L knee pain 08/19-no change LTG Duration 10/07 activities Short Term Goal (STG) Pt will report dec pain w/ transitions 08/19-lat knee discomfort with squatting and up/down from ground STG Duration 08/24 [facility] Goal (LTG) Pt will be able to do all sitting/ground stretches and exercises w/o inc L post knee pain 08/19-has been avoiding floor exercises from her program; knee tightness when attempted LTG Duration 10/07 strength Short Term Goal (STG) Pt will be indep w/hEP STG Duration achieved advancing as able [facility] Goal (LTG) Pt will score at least 4+/5 on all BLE MMT and at least 3/5 on LPM to show improved stability in order to dec pain during daily activities. 08/19-improved LTG Duration 10/07 Assessment Summary Assessment Pt had more ROM into hip ER/ flex in seated position w/much less knee pain at end of session. Physical Therapy Plan Frequency and Duration Frequency of Treatment 1-2x/wk Duration of treatment (weeks) 12 Plan of Care Start Date 07/15/24 Plan of Care End Date 10/07/24 Next Visit Focus/Plan Next Note Type Treatment Note Next Visit Plan psoas work, work on add mm, cirfumfrential MFR w/knee flex and hip ER and mobs of hip and knee in flex/ER of hip; work on L hip ER, review exercises from last 2 session
--- NOTE | 2024-09-01 15:39 | PT.OTN ---
Current Diagnoses Pain in left knee (09/01/24) Spondylolisthesis, lumbar region (09/01/24) Cervicalgia (09/01/24) Physical Therapy Treatment Note PT-OP-A Visit Information Start: 07/14/24 17:52 Freq: Status: Active Protocol: Document 09/01/24 15:31 [facility] (Rec: 09/01/24 15:39 [facility] [id number]) Out-Patient Physical Therapy Visit Information Visit Information Visit Type Treatment Note Visit Note 03/19 [email or web address] Access Code: [email or web address] Visit Start Time 13:50 Visit Stop Time 14:30 Visit Number 11 Number of MOTOR VEHICLE ESCORT DRIVER Visits 0 PT-OP-B Current Condition Start: 07/14/24 17:52 Freq: Status: Active Protocol: Document 07/15/24 09:44 [facility] (Rec: 07/15/24 11:23 [facility] [id number]) Current Condition History of Current Condition Onset Date chronic; last spring Current Complaints back and neck pain;L knee History of Current Condition Pt reports L5-S1 spondy was found in xray when livign in [place]. Used to be a middisatnce runner but stopped d/t pain about 10 years ago. She walks now was rowing at a gym. Stopped rowing d/t no longer has membership. She is very active. Hx of L elbow fx and radius dislocation w/ surgery. Notes osteophytes in neck and has some pain w/ looking up. Last spring was in [place], after doing a lot of stairs, she started having post knee tightness. It hasn't gotten better or worse w/ exercise. Walks daily and doing some weights at home. denies numbness/tingling. Pt's was doing full CG for for several months after had severe stroke which did a number on her back in 2017 then he went to a SNF where she still did bathing. Treatment Goals Patient/Caregiver Goals more flexibity in leg to do floor exercises. PT-OP-C Subjective Start: 07/14/24 17:52 Freq: Status: Active Protocol: Document 09/01/24 15:31 [facility] (Rec: 09/01/24 15:39 [facility] [id number]) OP-PT Subjective Patient Comments Patient Comments pt reports she feels looser after last session PT-OP-D Balance Start: 07/14/24 17:52 Freq: Status: Active Protocol: Document 07/15/24 09:44 [facility] (Rec: 07/15/24 11:23 [facility] [id number]) Balance Tests Single Limb Standing Single Limb- Right opp hip drop >30 sec Single Limb- Left lat lean L >30 sec PT-OP-F Manual Assessment Start: 07/14/24 17:52 Freq: Status: Active Protocol: Document 07/15/24 09:44 [facility] (Rec: 07/15/24 11:23 [facility] [id number]) Manual Assessments Soft Tissue Assessment Soft Tissue Mobility Assessment tightness HS, calf and ITB L PT-OP-G Mobility & Gait Start: 07/14/24 17:52 Freq: Status: Active Protocol: Document 07/15/24 09:44 [facility] (Rec: 07/15/24 11:23 [facility] [id number]) OP Gait Assessment Comments Gait Comments dec L push up/hip ext and dec stance time LLE PT-OP-J Posture/Palpation/Skin Start: 07/14/24 17:52 Freq: Status: Active Protocol: Document 08/19/24 15:20 [facility] (Rec: 08/19/24 17:15 [facility] [id number]) Posture Evaluation [facility] Postural Classification System Lumbar Protective Mechanism Left AP 0 Lumbar Protective Mechanism Right AP 1 Lumbar Protective Mechanism Left PA 5 Lumbar Protective Mechanism Right PA 3 PT-OP-K Range of Motion Start: 07/14/24 17:52 Freq: Status: Active Protocol: Document 07/15/24 09:44 [facility] (Rec: 07/15/24 11:23 [facility] [id number]) Knee Goniometric Range of Motion Knee Right Flexion Active (degrees) 135 Extension Active (degrees) 0 Left Flexion Active (degrees) 135 Extension Active (degrees) 0 Ankle and Foot Goniometric Range of Motion Ankle and Foot ROM Limitations Comments Knee to wall: R:3 in L:2.5 in PT-OP-L Special Tests Start: 07/14/24 17:52 Freq: Status: Active Protocol: Document 07/15/24 09:44 [facility] (Rec: 07/15/24 11:23 [facility] [id number]) Special Tests Knee Special Tests Evelyne Comments L minor imporved ant knee pain SLR Comments 75 deg L; R 90 deg SLump Comments neg ext sit and slump B-mild tightness PT-OP-M Strength Start: 07/14/24 17:52 Freq: Status: Active Protocol: Document 08/19/24 15:20 [facility] (Rec: 08/19/24 17:15 [facility] [id number]) Hip Strength Hip Manual Muscle Testing Right Flexion (L2) 4 Good Extension (S1) 4+ Good+ Abduction 4+ Good+ Adduction 5 Normal External Rotation 4 Good Internal Rotation 5 Normal Left Flexion (L2) 4 Good Extension (S1) 4+ Good+ Abduction 4 Good Adduction 4- Good- External Rotation 4 Good Internal Rotation 5 Normal Comments pain in quad w/hip flex Knee Strength Knee Manual Muscle Testing Right Flexion (S2) 4+ Good+ Extension (L3) 4+ Good+ Left Flexion (S2) 4- Good- Extension (L3) 4 Good Comments pain mild ant knee w/ext Ankle/Foot Strength Ankle and Foot Manual Muscle Testing Right Dorsiflexion (L4) 5 Normal Plantarflexion (S1) 5 Normal Left Dorsiflexion (L4) 5 Normal Plantarflexion (S1) 5 Normal Comments 20 heel raises B- PT-OP-Q Treatments Start: 07/14/24 17:52 Freq: Status: Active Protocol: Document 09/01/24 15:31 [facility] (Rec: 09/01/24 15:39 [facility] [id number]) Manual Therapy Treatment Consent Patient gave verbal consent for manual Yes treatment Soft Tissue Mobilization hip flexor Body Location L iliacus w/hip flex/ER abdomen Comments L fascia around small intestine Joint Mobilizations sacrum Comments caudal L, L PA innominate Comments caudal L, ER L, flex L, add L c/r PT-OP-T Assessment and Plan Start: 07/14/24 17:52 Freq: Status: Active Protocol: Document 09/01/24 15:31 [facility] (Rec: 09/01/24 15:39 [facility] [id number]) Physical Therapy Assessment Goals pain Intermediate Goal (LTG) Pt will report no constant L knee pain 08/19-no change LTG Duration 10/07 activities Short Term Goal (STG) Pt will report dec pain w/ transitions 08/19-lat knee discomfort with squatting and up/down from ground STG Duration 08/24 Public Works Manager Goal (LTG) Pt will be able to do all sitting/ground stretches and exercises w/o inc L post knee pain 08/19-has been avoiding floor exercises from her program; knee tightness when attempted LTG Duration 10/07 strength Short Term Goal (STG) Pt will be indep w/hEP STG Duration achieved advancing as able Public Works Manager Goal (LTG) Pt will score at least 4+/5 on all BLE MMT and at least 3/5 on LPM to show improved stability in order to dec pain during daily activities. 08/19-improved LTG Duration 10/07 Assessment Summary Assessment no knee pain in figure 4 long sit after manual care today. Improved SLR by about 20 deg after manual today w/less feeling of post tightness Physical Therapy Plan Frequency and Duration Frequency of Treatment 1-2x/wk Duration of treatment (weeks) 12 Plan of Care Start Date 07/15/24 Plan of Care End Date 10/07/24 Next Visit Focus/Plan Next Note Type Treatment Note Next Visit Plan cont to wrok on pelvis mobility, look at psoas and work on dec n tension w/work on spine as needed
--- NOTE | 2024-09-06 16:11 | PT.OTN ---
Current Diagnoses Pain in left knee (09/06/24) Spondylolisthesis, lumbar region (09/06/24) Cervicalgia (09/06/24) Physical Therapy Treatment Note PT-OP-A Visit Information Start: 07/14/24 17:52 Freq: Status: Active Protocol: Document 09/06/24 14:41 [facility] (Rec: 09/06/24 16:11 [facility] [id number]) Out-Patient Physical Therapy Visit Information Visit Information Visit Type Treatment Note Visit Note 04/19 [email or web address] Access Code: [email or web address] Visit Start Time 15:19 Visit Stop Time 16:04 Visit Number 12 Number of TREE TRIMMER Visits 1 PT-OP-B Current Condition Start: 07/14/24 17:52 Freq: Status: Active Protocol: Document 07/15/24 09:44 [facility] (Rec: 07/15/24 11:23 [facility] [id number]) Current Condition History of Current Condition Onset Date chronic; last spring Current Complaints back and neck pain;L knee History of Current Condition Pt reports L5-S1 spondy was found in xray when livign in [place]. Used to be a middisatnce runner but stopped d/t pain about 10 years ago. She walks now was rowing at a gym. Stopped rowing d/t no longer has membership. She is very active. Hx of L elbow fx and radius dislocation w/ surgery. Notes osteophytes in neck and has some pain w/ looking up. Last spring was in [place], after doing a lot of stairs, she started having post knee tightness. It hasn't gotten better or worse w/ exercise. Walks daily and doing some weights at home. denies numbness/tingling. Pt's was doing full CG for for several months after had severe stroke which did a number on her back in 2017 then he went to a SNF where she still did bathing. Treatment Goals Patient/Caregiver Goals more flexibity in leg to do floor exercises. PT-OP-C Subjective Start: 07/14/24 17:52 Freq: Status: Active Protocol: Document 09/06/24 14:41 [facility] (Rec: 09/06/24 16:11 [facility] [id number]) OP-PT Subjective Patient Comments Patient Comments Patient reports she is a lot better. What Robyn did lot, she is not tight like she was. PT-OP-D Balance Start: 07/14/24 17:52 Freq: Status: Active Protocol: Document 07/15/24 09:44 [facility] (Rec: 07/15/24 11:23 [facility] [id number]) Balance Tests Single Limb Standing Single Limb- Right opp hip drop >30 sec Single Limb- Left lat lean L >30 sec PT-OP-F Manual Assessment Start: 07/14/24 17:52 Freq: Status: Active Protocol: Document 07/15/24 09:44 [facility] (Rec: 07/15/24 11:23 [facility] [id number]) Manual Assessments Soft Tissue Assessment Soft Tissue Mobility Assessment tightness HS, calf and ITB L PT-OP-G Mobility & Gait Start: 07/14/24 17:52 Freq: Status: Active Protocol: Document 07/15/24 09:44 [facility] (Rec: 07/15/24 11:23 [facility] [id number]) OP Gait Assessment Comments Gait Comments dec L push up/hip ext and dec stance time LLE PT-OP-J Posture/Palpation/Skin Start: 07/14/24 17:52 Freq: Status: Active Protocol: Document 08/19/24 15:20 [facility] (Rec: 08/19/24 17:15 [facility] [id number]) Posture Evaluation [facility] Postural Classification System Lumbar Protective Mechanism Left AP 0 Lumbar Protective Mechanism Right AP 1 Lumbar Protective Mechanism Left PA 5 Lumbar Protective Mechanism Right PA 3 PT-OP-K Range of Motion Start: 07/14/24 17:52 Freq: Status: Active Protocol: Document 07/15/24 09:44 [facility] (Rec: 07/15/24 11:23 [facility] [id number]) Knee Goniometric Range of Motion Knee Right Flexion Active (degrees) 135 Extension Active (degrees) 0 Left Flexion Active (degrees) 135 Extension Active (degrees) 0 Ankle and Foot Goniometric Range of Motion Ankle and Foot ROM Limitations Comments Knee to wall: R:3 in L:2.5 in PT-OP-L Special Tests Start: 07/14/24 17:52 Freq: Status: Active Protocol: Document 07/15/24 09:44 [facility] (Rec: 07/15/24 11:23 [facility] [id number]) Special Tests Knee Special Tests Evelyne Comments L minor imporved ant knee pain SLR Comments 75 deg L; R 90 deg SLump Comments neg ext sit and slump B-mild tightness PT-OP-M Strength Start: 07/14/24 17:52 Freq: Status: Active Protocol: Document 08/19/24 15:20 [facility] (Rec: 08/19/24 17:15 [facility] [id number]) Hip Strength Hip Manual Muscle Testing Right Flexion (L2) 4 Good Extension (S1) 4+ Good+ Abduction 4+ Good+ Adduction 5 Normal External Rotation 4 Good Internal Rotation 5 Normal Left Flexion (L2) 4 Good Extension (S1) 4+ Good+ Abduction 4 Good Adduction 4- Good- External Rotation 4 Good Internal Rotation 5 Normal Comments pain in quad w/hip flex Knee Strength Knee Manual Muscle Testing Right Flexion (S2) 4+ Good+ Extension (L3) 4+ Good+ Left Flexion (S2) 4- Good- Extension (L3) 4 Good Comments pain mild ant knee w/ext Ankle/Foot Strength Ankle and Foot Manual Muscle Testing Right Dorsiflexion (L4) 5 Normal Plantarflexion (S1) 5 Normal Left Dorsiflexion (L4) 5 Normal Plantarflexion (S1) 5 Normal Comments 20 heel raises B- PT-OP-Q Treatments Start: 07/14/24 17:52 Freq: Status: Active Protocol: Document 09/06/24 14:41 [facility] (Rec: 09/06/24 16:11 [facility] [id number]) Therapeutic Exercises Supine Exercises piriformis stretch Side bilateral Reps/Minutes 60 sec modified Misael stretch edge of bed Side bilateral Reps/Minutes one minute each LE X2 Comments AROM knee flexion during stretch Standing Exercises retro stepping with band Resistance level 4 band Reps/Minutes 1.5 minutes Comments with light UE support sit to stand with band Standing Exercise Name sit to stand slightly raised seat height Resistance level 4 band Reps/Minutes X10 X 2 Comments VC to hip hinge, monitored for pain Manual Therapy Treatment Soft Tissue Mobilization hip flexor Body Location illiopsoas Mobilization Type Cross-Friction,Rolling Intensity/Depth Moderate Body Position Hooklying hip Body Location glute/piriformis Mobilization Type Cross-Friction,Rolling Intensity/Depth Moderate Body Position Sidelying PT-OP-T Assessment and Plan Start: 07/14/24 17:52 Freq: Status: Active Protocol: Document 09/06/24 14:41 [facility] (Rec: 09/06/24 16:11 [facility] [id number]) Physical Therapy Assessment Goals pain [facility] Goal (LTG) Pt will report no constant L knee pain 08/19-no change LTG Duration 10/07 activities Short Term Goal (STG) Pt will report dec pain w/ transitions 08/19-lat knee discomfort with squatting and up/down from ground STG Duration 08/24 [facility] Goal (LTG) Pt will be able to do all sitting/ground stretches and exercises w/o inc L post knee pain 08/19-has been avoiding floor exercises from her program; knee tightness when attempted LTG Duration 10/07 strength Short Term Goal (STG) Pt will be indep w/hEP STG Duration achieved advancing as able Oil Well Pumper Goal (LTG) Pt will score at least 4+/5 on all BLE MMT and at least 3/5 on LPM to show improved stability in order to dec pain during daily activities. 08/19-improved LTG Duration 10/07 Assessment Summary Assessment Patient reports knee is less tight, only hurts with certain movements, demonstrating left LE extension from mary cross seated position, with verbal cues to hold trunk position and brace with abdominals reports decreased pain. Physical Therapy Plan Frequency and Duration Frequency of Treatment 1-2x/wk Duration of treatment (weeks) 12 Plan of Care Start Date 07/15/24 Plan of Care End Date 10/07/24 Next Visit Focus/Plan Next Note Type Treatment Note Next Visit Plan cont to wrok on pelvis mobility, look at psoas and work on dec n tension w/work on spine as needed
--- NOTE | 2024-09-08 14:31 | PT.OTN ---
Current Diagnoses Pain in left knee (09/08/24) Spondylolisthesis, lumbar region (09/08/24) Cervicalgia (09/08/24) Physical Therapy Treatment Note PT-OP-A Visit Information Start: 07/14/24 17:52 Freq: Status: Active Protocol: Document 09/08/24 13:29 [facility] (Rec: 09/08/24 14:31 [facility] [id number]) Out-Patient Physical Therapy Visit Information Visit Information Visit Type Discharge Summary Visit Note [email or web address] Access Code: [email or web address] Visit Start Time 13:41 Visit Stop Time 14:23 Visit Number 13 Number of BUTTON INSPECTOR Visits 0 PT-OP-B Current Condition Start: 07/14/24 17:52 Freq: Status: Active Protocol: Document 07/15/24 09:44 [facility] (Rec: 07/15/24 11:23 [facility] [id number]) Current Condition History of Current Condition Onset Date chronic; last spring Current Complaints back and neck pain;L knee History of Current Condition Pt reports L5-S1 spondy was found in xray when livign in [place]. Used to be a middisatnce runner but stopped d/t pain about 10 years ago. She walks now was rowing at a gym. Stopped rowing d/t no longer has membership. She is very active. Hx of L elbow fx and radius dislocation w/ surgery. Notes osteophytes in neck and has some pain w/ looking up. Last spring was in [place], after doing a lot of stairs, she started having post knee tightness. It hasn't gotten better or worse w/ exercise. Walks daily and doing some weights at home. denies numbness/tingling. Pt's was doing full CG for for several months after had severe stroke which did a number on her back in 2017 then he went to a SNF where she still did bathing. Treatment Goals Patient/Caregiver Goals more flexibity in leg to do floor exercises. PT-OP-C Subjective Start: 07/14/24 17:52 Freq: Status: Active Protocol: Document 09/08/24 13:29 [facility] (Rec: 09/08/24 14:31 [facility] [id number]) OP-PT Subjective Patient Comments Patient Comments occ feels up/down stairs and getting out of car, and sometimes when sitting on floor. PT-OP-D Balance Start: 07/14/24 17:52 Freq: Status: Active Protocol: Document 07/15/24 09:44 [facility] (Rec: 07/15/24 11:23 [facility] [id number]) Balance Tests Single Limb Standing Single Limb- Right opp hip drop >30 sec Single Limb- Left lat lean L >30 sec PT-OP-F Manual Assessment Start: 07/14/24 17:52 Freq: Status: Active Protocol: Document 07/15/24 09:44 [facility] (Rec: 07/15/24 11:23 [facility] [id number]) Manual Assessments Soft Tissue Assessment Soft Tissue Mobility Assessment tightness HS, calf and ITB L PT-OP-G Mobility & Gait Start: 07/14/24 17:52 Freq: Status: Active Protocol: Document 07/15/24 09:44 [facility] (Rec: 07/15/24 11:23 [facility] [id number]) OP Gait Assessment Comments Gait Comments dec L push up/hip ext and dec stance time LLE PT-OP-J Posture/Palpation/Skin Start: 07/14/24 17:52 Freq: Status: Active Protocol: Document 09/08/24 13:29 [facility] (Rec: 09/08/24 14:31 [facility] [id number]) Posture Evaluation Alicia Postural Classification System Lumbar Protective Mechanism Left AP 2 Lumbar Protective Mechanism Right AP 2 Lumbar Protective Mechanism Left PA 4 Lumbar Protective Mechanism Right PA 3 PT-OP-K Range of Motion Start: 07/14/24 17:52 Freq: Status: Active Protocol: Document 07/15/24 09:44 [facility] (Rec: 07/15/24 11:23 [facility] [id number]) Knee Goniometric Range of Motion Knee Right Flexion Active (degrees) 135 Extension Active (degrees) 0 Left Flexion Active (degrees) 135 Extension Active (degrees) 0 Ankle and Foot Goniometric Range of Motion Ankle and Foot ROM Limitations Comments Knee to wall: R:3 in L:2.5 in PT-OP-L Special Tests Start: 07/14/24 17:52 Freq: Status: Active Protocol: Document 07/15/24 09:44 [facility] (Rec: 07/15/24 11:23 [facility] [id number]) Special Tests Knee Special Tests Evelyne Comments L minor imporved ant knee pain SLR Comments 75 deg L; R 90 deg SLump Comments neg ext sit and slump B-mild tightness PT-OP-M Strength Start: 07/14/24 17:52 Freq: Status: Active Protocol: Document 09/08/24 13:29 [facility] (Rec: 09/08/24 14:31 [facility] [id number]) Hip Strength Hip Manual Muscle Testing Right Flexion (L2) 4+ Good+ Extension (S1) 4+ Good+ Abduction 5 Normal Adduction 5 Normal External Rotation 5 Normal Internal Rotation 5 Normal Left Flexion (L2) 5 Normal Extension (S1) 5 Normal Abduction 5 Normal Adduction 4+ Good+ External Rotation 5 Normal Internal Rotation 5 Normal Knee Strength Knee Manual Muscle Testing Right Flexion (S2) 5 Normal Extension (L3) 5 Normal Left Flexion (S2) 4+ Good+ Extension (L3) 4+ Good+ Comments pain mild ant knee w/ext Ankle/Foot Strength Ankle and Foot Manual Muscle Testing Right Dorsiflexion (L4) 5 Normal Plantarflexion (S1) 5 Normal Left Dorsiflexion (L4) 5 Normal Plantarflexion (S1) 5 Normal Comments 20 heel raises B PT-OP-Q Treatments Start: 07/14/24 17:52 Freq: Status: Active Protocol: Document 09/08/24 13:29 [facility] (Rec: 09/08/24 14:31 [facility] [id number]) Therapeutic Exercises Supine Exercises isometric Supine Exercise Name DL Side bilateral Reps/Minutes 2x30 sec Standing Exercises add Side left Equipment Used L2 Reps/Minutes 2x10 RDL Standing Exercise Name SL RDL Side bilateral Equipment Used no wt Reps/Minutes X5 Comments review sit to stand with band Standing Exercise Name squats Resistance dc band Reps/Minutes 12 stretches Standing Exercise Name calf Side bilateral Reps/Minutes 30 sec on steps heel raises Standing Exercise Name DL stairs Side bilateral Reps/Minutes 10 Other Exercises isometric Other Exercise Name BMMT and LPM B Manual Therapy Treatment Consent Patient gave verbal consent for manual Yes treatment Soft Tissue Mobilization thigh Body Location L glute , HS and addw/ ER, Mobilization Type Myofascial Release Intensity/Depth Moderate Joint Mobilizations innominate Comments add FM hip Comments add FM PT-OP-T Assessment and Plan Start: 07/14/24 17:52 Freq: Status: Active Protocol: Document 09/08/24 13:29 [facility] (Rec: 09/08/24 14:31 [facility] [id number]) Physical Therapy Assessment Goals pain Senior Care Goal (LTG) Pt will report no constant L knee pain 08/19-no change LTG Duration achieved 09/08 activities Short Term Goal (STG) Pt will report dec pain w/ transitions 08/19-lat knee discomfort with squatting and up/down from ground 09/08-occ w/in/out of car STG Duration mostly achieved Certified Alcohol Drug Counselor Goal (LTG) Pt will be able to do all sitting/ground stretches and exercises w/o inc L post knee pain 08/19-has been avoiding floor exercises from her program; knee tightness when attempted 09/08- some lat knee pain occ LTG Duration mostly achieved strength Short Term Goal (STG) Pt will be indep w/hEP STG Duration achieved advancing as able Senior Care Goal (LTG) Pt will score at least 4+/5 on all BLE MMT and at least 3/5 on LPM to show improved stability in order to dec pain during daily activities. 08/19-improved LTG Duration mostly achieved 09/08 Assessment Summary Assessment Pt has met most goals and indep w/HEP and understands importance of cont strength and stretching. She reports pain post knee is 95% better. DC to HEP Physical Therapy Plan Discharge Physical Therapy Discharge Reasons Goals Met
== END 2024-09-21 08:58 | disposition home or self-care (01) ==
LOC: PHYS 13:45
PROVIDERS: Family Provider Family Medicine; PCP Family Medicine; Referring Provider Family Medicine; Visit Provider Family Medicine
DX: M25.562 Pain in left knee (principal); M43.16 Spondylolisthesis, lumbar region; M54.2 Cervicalgia
CPT/HCPCS: 97110; 97140; 97162; 97530; 97535

== ENCOUNTER → 2024-09-28 08:00 | Outpatient (CLI) | payer OTHER, MEDICAID, SELFPAY ==
--- NOTE | 2024-09-28 08:01 | DI.RAD.S_ITS ---
PROCEDURE: XR KUB INDICATIONS: Kidney stones TECHNIQUE: One view of the abdomen acquired. COMPARISON: [facility], CR, XR KUB, 08/25/2023, 8:55. [facility], CR, XR KUB, 05/14/2023, 7:28. Findings and impression: No definite radiopaque renal calculus. Findings are somewhat obscured however by bowel gas. Pelvic calcifications are seen, usually phleboliths. If there is further concern, consider CT KUB. Nonobstructive, nonspecific bowel gas pattern. Osseous degenerative changes. Dictated by: Wes Hua M.D. on 09/28/2024 at 10:15 Approved by: Wes Hua M.D. on 09/28/2024 at 10:16
== END ==
PROVIDERS: Family Provider Family Medicine; PCP Family Medicine; Referring Provider Urology; Visit Provider Urology
DX: N20.0 Calculus of kidney (principal)
CPT/HCPCS: 74018

== ENCOUNTER → 2024-12-20 15:17 | Outpatient (CLI) | payer OTHER, SELFPAY ==
--- NOTE | 2024-12-20 15:19 | DI.RAD.S_ITS ---
PROCEDURE: XR KNEE RT 3V INDICATIONS: knee pain L>R TECHNIQUE: 3 views of the knee were acquired. COMPARISON: None. FINDINGS: Bones: No fractures or dislocations. No suspicious bony lesions. Pivf-[id number] medial and mild lateral tibiofemoral compartment joint space narrowing is noted in addition to moderate patellofemoral compartment joint space narrowing. No significant degree of osteophytosis is noted. Soft tissues: No joint effusion. No suspicious soft tissue calcifications. 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 Dictated by: Bob Harrington M.D. on 12/20/2024 at 23:08 Approved by: Bob Harrington M.D. on 12/20/2024 at 23:09
--- NOTE | 2024-12-20 15:19 | DI.RAD.S_ITS ---
PROCEDURE: XR KNEE LT 3V INDICATIONS: knee pain L>R TECHNIQUE: 3 views of the knee were acquired. COMPARISON: None. FINDINGS: Bones: No fractures or dislocations. No suspicious bony lesions. Moderate medial and mild lateral tibiofemoral compartment and moderate to severe patellofemoral compartment joint space narrowing with tricompartmental osteophytosis. Partial bifid patella noted. Soft tissues: Mild joint effusion. No suspicious soft tissue calcifications. IMPRESSION: Kellgren-Lyle grade 3 tricompartmental osteoarthritis and mild joint effusion without evidence of acute osseous abnormality. Dictated by: Bob Harrington M.D. on 12/20/2024 at 23:10 Approved by: Bob Harrington M.D. on 12/20/2024 at 23:12
== END ==
PROVIDERS: Family Provider Family Medicine; PCP Family Medicine; Referring Provider Family Medicine; Visit Provider Family Medicine
DX: M25.561 Pain in right knee (principal); M25.562 Pain in left knee; M17.0 Bilateral primary osteoarthritis of knee; M25.462 Effusion, left knee
CPT/HCPCS: 73562

== ENCOUNTER 2025-01-17 10:49 | Day surgery (SDC) | payer OTHER, SELFPAY ==
--- NOTE | 2025-01-17 | PATH_ITS ---
[facility] Accession Number: [id number] No. of containers..01 Tissue . 01 Material submitted: . colon - SIGMOID POLYP . 01 Diagnosis: SIGMOID COLON POLYP: Inflammatory polyp. MRV 01/19/2025 1243 Local . 01 Electronically signed: . Mag Monge MD, Pathologist NPI- [id number] . 01 Gross description: . SIGMOID POLYP: Received in formalin is 1 fragment(s) of balbuena, soft tissue measuring 0.3 x 0.2 x 0.2 cm submitted entirely in 1 cassette(s) /CESAR 01/18/2025 2000 Local . 01 Pathologist provided ICD-10: K51.40 . 01 CPT . 607540 Specimen Comment: A courtesy copy of this report has been sent to [facility] Pathology Performed at: [address] [facility] [id number] MD Thiago Ac MD Phone: [phone]
[2025-01-17 11:39] VITALS: BP 133/78; PULSE 80; RESP 16; TEMP 37; O2SAT 100
[2025-01-17] MEDS: LACTATED RINGERS 1,000 ML 42 ML IV (11:51)
--- NOTE | 2025-01-17 12:21 | PM.HP.IH.1 ---
History of Present Illness History of Present Illness Date Patient Seen: 01/17/25 Time Patient Seen: 12:21 Chief complaint: SDC Narrative: 64-year-old white female presents for initial screening colonoscopy. She has had negative FIT specimens before, the states she would like to have a colonoscopy to mitigate risk of false negative test. No family history and no change in bowel habits PFSH Medical History Osteoporosis Spondylolisthesis, lumbar region Hypocitraturia Calcium oxalate kidney stones Phosphate kidney stone History of urinary tract infection Right shoulder pain Right forearm pain Atrophic vaginitis Right kidney stone Blood in urine Skin spots, red Abnormal laboratory test result Hyperlipidemia Osteopenia (~2009) Fractures (~2010) Surgical History Hx of cystoscopy (10/08/22) H/O tubal ligation Anesthesia History of surgery on arm (~07/2011) Family History Father Hypertension Atrial fibrillation Mother Osteoporosis Social History marital status: number of children: 0 household members: family Smoking Status: Never smoker alcohol intake: current Type(s) of exercise: walking frequency: 1-2 times per week Meds Home Medications and Allergies Home Medications Medication Instructions Recorded Confirmed Type Lactobacillus acidophilus 10 10,000 mmu cells PO DAILY 10/07/22 01/17/25 History billion cell capsule (Probiotic) d-mannose 500 mg capsule 500 mg PO DAILY 09/30/24 01/17/25 History multivitamin (Daily Multi-Vitamin 1 tab PO DAILY 09/30/24 01/17/25 History tablet) peg 3350-electrolytes 236 240 ml PO Q10M #4,000 mL 12/17/24 01/03/25 Rx gram-22.74 gram-6.74 gram-5.86 gram solution (Golytely) estradiol 0.01% (0.1 mg/gram) See Rx Instructions .Route 01/04/25 01/17/25 Rx vaginal cream .COMPLEX #42.5 grams Allergies Allergy/AdvReac Type Severity Reaction Status Date / Time No Known Drug Allergies Allergy Verified 01/17/25 11:36 Exam Vital Signs (past 8 hours): - 01/17/25 11:39 Temperature 98.6 F Pulse Rate 80 Respiratory Rate 16 Blood Pressure 133/78 Pulse Oximetry 100 Oxygen Delivery Method Room Air Oxygen Delivery Method Room Air Narrative Exam Narrative: Gen: NAD, sitting comfortably in bed, appears well HEENT: Sclera are anicteric, head is normocephalic and atraumatic, trachea is midline. CV: RRR, no JVD Resp: clear to auscultation bilaterally, equal chest wall movement bilaterally Abd: soft, nontender, normoactive bowel sounds Ext: no edema, full range of motion Neuro: Cranial nerves II-XII grossly intact, no focal deficits Skin: No erythema or ecchymosis Assessment & Plan Assessment and plan (1) Colon cancer screening: Status: Acute Assessment & Plan narrative: Patient presents for colonoscopy Risks, benefits, alternatives to colonoscopy explained, including but not limited to bowel perforation or other serious complication requiring surgery at less than 1 in 5000 colonoscopies, abdominal pain, cramping or bleeding and less than 1% of colonoscopies, and the chances that we find a diagnosis that would require further intervention of about 2%. Patient agrees to proceed. Time-Based Coding :: [TOTAL MINUTES] spent with patient and on the chart (including review of chart, obtaining history, exam, reviewing outside data, placing orders, documenting exam and treatment plan, and counseling patient) on [DATE]. PROFEE Director Of Revenue Cycle Management Document charge(s): No
--- NOTE | 2025-01-17 13:01 | PM.OP.COLON ---
Operative Date/Time/Diagnoses Date of procedure: 01/17/25 Time of procedure: 13:01 Pre-op diagnosis: Colon screening Post-op diagnosis: same (Sigmoid polyp) Procedure & Clinicians Study performed: Colonoscopy with cold snare polypectomy of sigmoid polyp Same procedure as scheduled: Yes Indications: Colon screening Surgeon: Serjio Cazares Procedure Notes SCOAP/Timeout: Performed Procedure in detail: Time-out was performed. Mac was induced. Patient was placed in left lateral decubitus position. The perineum was inspected without any gross abnormality. Lubricated pediatric colonoscope was inserted and advanced to the cecum. The terminal ileum was intubated. The colonoscope was withdrawn slowly inspecting the circumference of the colon. A small, benign-appearing polyp was noted in the sigmoid colon. It was removed completely with cold snare polypectomy and retrieved. Very small polyps may have been missed, prep quality was adequate. Retroflexed view of the rectum showed small, non prolapsed nonbleeding internal hemorrhoids. The scope was withdrawn the patient was taken to PACU in good condition. Scope withdrawal time: 11 Findings: polyp(s) Specimen(s): other (sigmoid polyp) Complications: none Impression: Sigmoid polyp Post-procedure Recommendations: Colonoscopy in 5 years (Next colonoscopy in 7 years) Follow up: as needed Disposition: PACU
[2025-01-17 13:02] VITALS: BP 95/52; PULSE 72; RESP 12; TEMP 36.3; O2SAT 96
[2025-01-17 13:07] VITALS: BP 97/55; PULSE 78; RESP 16; O2SAT 97
[2025-01-17 13:14] VITALS: BP 100/59; PULSE 74; RESP 16; O2SAT 97
[2025-01-17 13:19] VITALS: BP 112/68; PULSE 74; RESP 16; O2SAT 97
== END 2025-01-17 13:35 | disposition home or self-care (01) ==
PROVIDERS: Family Provider Family Medicine; PCP Family Medicine; Referring Provider Surgery; Visit Provider Surgery
PROC: 0DJD8ZZ Inspection of Lower Intestinal Tract, Via Natural or Artificial Opening Endoscopic (ICD-10-PCS; CPT 45378; principal; 2025-01-17 12:15)
DX: Z12.11 Encounter for screening for malignant neoplasm of colon (principal); K64.8 Other hemorrhoids; K51.40 Inflammatory polyps of colon without complications
CPT/HCPCS: 45385; J2704

== ENCOUNTER 2025-01-20 13:45 | Outpatient (RCR) | payer OTHER, SELFPAY ==
--- NOTE | 2025-01-11 13:21 | PT.OIE ---
Current Diagnoses Unspecified osteoarthritis, unspecified site (01/11/25) Pain in right knee (01/11/25) Pain in left knee (01/11/25) Past Medical History (Last Updated 05/25/24 @ 07:55 by Zak Chu MD) Abnormal laboratory test result Atrophic vaginitis Blood in urine Calcium oxalate kidney stones Fractures (~2010) History of urinary tract infection Hyperlipidemia Hypocitraturia Osteopenia (~2009) Osteoporosis Phosphate kidney stone Right forearm pain Right kidney stone Right shoulder pain Skin spots, red Spondylolisthesis, lumbar region Past Surgical History (Last Reviewed 04/01/24 @ 13:38 by KEITH Connolly) Anesthesia H/O tubal ligation History of surgery on arm (~07/2011) Hx of cystoscopy (10/08/22) Visit Care Team Role Provider Type Zak Chu MD Attending Provider Physician Family Provider Primary Care Provider Referring Provider Specialty: [facility] Practice Address: [address] [place] [address] Email: [email or web address] Physical Therapy Initial Evaluation PT-OP-A Visit Information Start: 01/11/25 11:10 Freq: Status: Active Protocol: Document 01/11/25 11:11 [facility] (Rec: 01/11/25 13:21 [facility] [id number]) Out-Patient Physical Therapy Visit Information Visit Information Visit Type Initial Evaluation Visit Start Time 11:35 Visit Stop Time 12:20 Visit Number 1 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 recently had xray. She has been doing some red light therapy. mostly lat L knee. In the AM it is crunchy but not painful then it does stop. DId put ice on it when first got the xray. She did maxine and jumping jacks irritate her knees. She has been rowing, treadmill or walking outside, and core exercises. L post knee still constant discomfort but feels less tight. hx of back pain w/spondy, osteoporosis Treatment Goals Patient/Caregiver Goals avoid knee replacement, know what to do at gym PT-OP-C Subjective Start: 01/11/25 11:10 Freq: Status: Active Protocol: Document 01/11/25 11:11 [facility] (Rec: 01/11/25 13:21 [facility] [id number]) Patient Questionnaires Lower Extremity Functional Scale LEFS Score 61 OP-PT Pain Assessment Location knees Pain Location Details L post knee, lat knee ;and R Description- Other clicking when up initially Other Pain Aggravating Factors jumping, down stairs, get up from ground Pain Alleviating Factors Cold Other Pain Alleviating Factors ibuprofen, hot tub PT-OP-D Balance Start: 01/11/25 11:10 Freq: Status: Active Protocol: Document 01/11/25 11:11 [facility] (Rec: 01/11/25 13:21 [facility] [id number]) Balance Tests Single Limb Standing Single Limb- Right >30 sec Single Limb- Left 8 sec PT-OP-K Range of Motion Start: 01/11/25 11:10 Freq: Status: Active Protocol: Document 01/11/25 11:11 [facility] (Rec: 01/11/25 13:21 [facility] [id number]) Knee Goniometric Range of Motion Knee Right Flexion Active (degrees) 142 Extension Active (degrees) 2 Left Flexion Active (degrees) 136 Extension Active (degrees) 4 Comments pain ext and flex PT-OP-L Special Tests Start: 01/11/25 11:10 Freq: Status: Active Protocol: Document 01/11/25 11:11 [facility] (Rec: 01/11/25 13:21 [facility] [id number]) Special Tests Knee Special Tests Misael Comments mild quad tightness B Thessaly Test 5 Degrees Comments neg B Apley's Compression Comments neg B ligamentous testing Comments neg B SLR Comments WNL about 90 deg SLR PT-OP-M Strength Start: 01/11/25 11:10 Freq: Status: Active Protocol: Document 01/11/25 11:11 [facility] (Rec: 01/11/25 13:21 [facility] [id number]) Hip Strength Hip Manual Muscle Testing Right Flexion (L2) 4- Good- Extension (S1) 4- Good- Abduction 4- Good- Adduction 4- Good- External Rotation 4- Good- Internal Rotation 5 Normal Left Flexion (L2) 4- Good- Extension (S1) 4- Good- Abduction 4- Good- Adduction 3+ Fair+ External Rotation 4- Good- Internal Rotation 4- Good- Knee Strength Knee Manual Muscle Testing Right Flexion (S2) 5 Normal Extension (L3) 5 Normal Left Flexion (S2) 4 Good Extension (L3) 4- Good- Ankle/Foot Strength Ankle and Foot Manual Muscle Testing Right Dorsiflexion (L4) 5 Normal Plantarflexion (S1) 5 Normal Left Dorsiflexion (L4) 5 Normal Plantarflexion (S1) 5 Normal Comments 20 heel raises B PT-OP-Q Treatments Start: 01/11/25 11:10 Freq: Status: Active Protocol: Document 01/11/25 11:11 [facility] (Rec: 01/11/25 13:21 [facility] [id number]) Neuro Re-Education Treatment Coordination Activities jumping Details inc time for demo Equipment mirror Comments squat jump x10 focusing on knee positioning jumping jacks working on soft knees and smaller range to dec knee [id number] Movement Re-Education Movement Re-education Activities squat form in mirror x6 working on knee position Self-Care/Home Management Treatment Education Other Education 13 min: discussion of xray results and importance of anti inflamatory w/diet and encouraged to cont her current jt supplements as long as she has discussed this w/her provder. edu to consider discussing fish oil, topical anti inflamatories and healthy diet to help w/jt inflamation ; discussed how dec stability at spine could be related to progression o fknee problems. edu PT can help w/movement mechanics of knee despite OA and stability/strenth PT-OP-T Assessment and Plan Start: 01/11/25 11:10 Freq: Status: Active Protocol: Document 01/11/25 11:11 [facility] (Rec: 01/11/25 13:21 [facility] [id number]) Physical Therapy Assessment Rehab Potential Rehabilitation Potential Good Evaluation Complexity Number of Personal Factors/Comorbidities 3 or More Number of Body Systems Impaired 4 or More Clinical Presentation at Evaluation Evolving Impairments Impairments Activity Tolerance,Balance, Functional Activities, Functional Mobility,Gait,Pain, Posture,ROM,Soft Tissue Mobility,Strength Goals balance Correction Goal (LTG) Pt will be able to balance on LLE for 30 sec LTG Duration 03/22 strength Short Term Goal (STG) Pt will be indep w/HEP STG Duration 02/09 Correction Goal (LTG) Pt will score at least 4+/5 on all BLE MMT to show improved strength and stability to allow for greater ease w/ movement. LTG Duration 03/22 activity Short Term Goal (STG) Pt will be able to get up/down from ground w/o feeling in knees of significant difficulty STG Duration 02/20 Water Attendant Goal (LTG) Pt will be able to go down stairs w/o inc pain and do exercise class w/o inc pain LTG Duration 03/22 Assessment Summary Assessment Pt presents to PT w/concerns of B knee OA w/ progression of recent L knee clicking in Am and pain w/descending stairs and up/dwon from ground. 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 She has L>R knee OA and pain and dec balance on L along w/L>R weakness of hip and knee mm. She would benefit from skilled PT to improve her function. Physical Therapy Plan Frequency and Duration Frequency of Treatment 1-2x/wk Duration of treatment (weeks) 10 Plan of Care Start Date 01/11/25 Plan of Care End Date 03/22/25 Therapeutic Interventions Therapeutic Interventions Balance Training,Gait Training ,Home Exercise Program,Joint Mobilizations,Manual Therapy, Neuromuscular Re-education, Patient/Caregiver Education, Self-Care/Home Management,Soft Tissue Mobilization,Taping, Therapeutic Activities, Therapeutic Exercises Modalities Cold Pack/Ice Massage,Electric Stimulation,Hot Packs, Infrared Therapy,Ultrasound Next Visit Focus/Plan Next Note Type Treatment Note Next Visit Plan go over leg press, abd/add machines, squat mechanics, lunges, review jumping mechanics manual for B knee tracking
--- NOTE | 2025-01-11 13:21 | PT.OPPOC ---
Physical, Occupational & Speech Therapy At [facility] Current Diagnoses Unspecified osteoarthritis, unspecified site (01/11/25) Pain in right knee (01/11/25) Pain in left knee (01/11/25) Visit Care Team Role Provider Type Zak Chu MD Attending Provider Physician Family Provider Primary Care Provider Referring Provider Specialty: Family Practice Address: [address] [place] [address], [facility] Email: [email or web address] Plan Of Care PT-OP-B Current Condition Start: 01/11/25 11:10 Freq: Status: Active Protocol: Document 01/11/25 11:11 [facility] (Rec: 01/11/25 13:21 [facility] [id number]) Current Condition History of Current Condition Current Complaints B knee pain L>R History of Current Condition 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 recently had xray. She has been doing some red light therapy. mostly lat L knee. In the AM it is crunchy but not painful then it does stop. DId put ice on it when first got the xray. She did maxine and jumping jacks irritate her knees. She has been rowing, treadmill or walking outside, and core exercises. L post knee still constant discomfort but feels less tight. hx of back pain w/spondy, osteoporosis Treatment Goals Patient/Caregiver Goals avoid knee replacement, know what to do at gym PT-OP-T Assessment and Plan Start: 01/11/25 11:10 Freq: Status: Active Protocol: Document 01/11/25 11:11 [facility] (Rec: 01/11/25 13:21 [facility] [id number]) Physical Therapy Assessment Rehab Potential Rehabilitation Potential Good Evaluation Complexity Number of Personal Factors/Comorbidities 3 or More Number of Body Systems Impaired 4 or More Clinical Presentation at Evaluation Evolving Impairments Impairments Activity Tolerance,Balance, Functional Activities, Functional Mobility,Gait,Pain, Posture,ROM,Soft Tissue Mobility,Strength Goals balance Snf Goal (LTG) Pt will be able to balance on LLE for 30 sec LTG Duration 03/22 strength Short Term Goal (STG) Pt will be indep w/HEP STG Duration 02/09 Snf Goal (LTG) Pt will score at least 4+/5 on all BLE MMT to show improved strength and stability to allow for greater ease w/ movement. LTG Duration 03/22 activity Short Term Goal (STG) Pt will be able to get up/down from ground w/o feeling in knees of significant difficulty STG Duration 02/20 Snf Goal (LTG) Pt will be able to go down stairs w/o inc pain and do exercise class w/o inc pain LTG Duration 03/22 Assessment Summary Assessment Pt presents to PT w/concerns of B knee OA w/ progression of recent L knee clicking in Am and pain w/descending stairs and up/dwon from ground. 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 She has L>R knee OA and pain and dec balance on L along w/L>R weakness of hip and knee mm. She would benefit from skilled PT to improve her function. Physical Therapy Plan Frequency and Duration Frequency of Treatment 1-2x/wk Duration of treatment (weeks) 10 Plan of Care Start Date 01/11/25 Plan of Care End Date 03/22/25 Therapeutic Interventions Therapeutic Interventions Balance Training,Gait Training ,Home Exercise Program,Joint Mobilizations,Manual Therapy, Neuromuscular Re-education, Patient/Caregiver Education, Self-Care/Home Management,Soft Tissue Mobilization,Taping, Therapeutic Activities, Therapeutic Exercises Modalities Cold Pack/Ice Massage,Electric Stimulation,Hot Packs, Infrared Therapy,Ultrasound Next Visit Focus/Plan Next Note Type Treatment Note Next Visit Plan go over leg press, abd/add machines, squat mechanics, lunges, review jumping mechanics manual for B knee tracking Plan of Care Dates Plan of Care Start Date 01/11/25 Plan of Care End Date 03/22/25 Electronically Signed by: Rboyn Yepez, PT 01/11/25 [id number] If you are in agreement with this Plan of Care, please return a signed and dated copy. I have reviewed this Plan of Care and certify that the skilled therapy services above are required to meet the patient?s needs. Physician Signature Date Printed Name and Credentials Clinical Instructor Signature Printed Name and Credentials
--- NOTE | 2025-01-13 12:33 | PT.OTN ---
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 recently had xray. She has been doing some red light therapy. mostly lat L knee. In the AM it is crunchy but not painful then it does stop. DId put ice on it when first got the xray. She did maxine and jumping jacks irritate her knees. She has been rowing, treadmill or walking outside, and core exercises. L post knee still constant discomfort but feels less tight. hx of back pain w/spondy, osteoporosis Treatment Goals Patient/Caregiver Goals avoid knee replacement, know what to do at gym PT-OP-C Subjective Start: 01/11/25 11:10 Freq: Status: Active Protocol: Document 01/13/25 09:51 [facility] (Rec: 01/13/25 12:33 [facility] [id number]) OP-PT Subjective Patient Comments Patient Comments Pt reports wondering how add/ abd machines will help her knee PT-OP-D Balance Start: 01/11/25 11:10 Freq: Status: Active Protocol: Document 01/11/25 11:11 [facility] (Rec: 01/11/25 13:21 [facility] [id number]) Balance Tests Single Limb Standing Single Limb- Right >30 sec Single Limb- Left 8 sec PT-OP-K Range of Motion Start: 01/11/25 11:10 Freq: Status: Active Protocol: Document 01/11/25 11:11 [facility] (Rec: 01/11/25 13:21 [facility] [id number]) Knee Goniometric Range of Motion Knee Right Flexion Active (degrees) 142 Extension Active (degrees) 2 Left Flexion Active (degrees) 136 Extension Active (degrees) 4 Comments pain ext and flex PT-OP-L Special Tests Start: 01/11/25 11:10 Freq: Status: Active Protocol: Document 01/11/25 11:11 [facility] (Rec: 01/11/25 13:21 [facility] [id number]) Special Tests Knee Special Tests Misael Comments mild quad tightness B Thessaly Test 5 Degrees Comments neg B Apley's Compression Comments neg B ligamentous testing Comments neg B SLR Comments WNL about 90 deg SLR PT-OP-M Strength Start: 01/11/25 11:10 Freq: Status: Active Protocol: Document 01/11/25 11:11 [facility] (Rec: 01/11/25 13:21 [facility] [id number]) Hip Strength Hip Manual Muscle Testing Right Flexion (L2) 4- Good- Extension (S1) 4- Good- Abduction 4- Good- Adduction 4- Good- External Rotation 4- Good- Internal Rotation 5 Normal Left Flexion (L2) 4- Good- Extension (S1) 4- Good- Abduction 4- Good- Adduction 3+ Fair+ External Rotation 4- Good- Internal Rotation 4- Good- Knee Strength Knee Manual Muscle Testing Right Flexion (S2) 5 Normal Extension (L3) 5 Normal Left Flexion (S2) 4 Good Extension (L3) 4- Good- Ankle/Foot Strength Ankle and Foot Manual Muscle Testing Right Dorsiflexion (L4) 5 Normal Plantarflexion (S1) 5 Normal Left Dorsiflexion (L4) 5 Normal Plantarflexion (S1) 5 Normal Comments 20 heel raises B PT-OP-Q Treatments Start: 01/11/25 11:10 Freq: Status: Active Protocol: Document 01/13/25 09:51 [facility] (Rec: 01/13/25 12:33 [facility] [id number]) Gym Equipment Cable Column (Body Solid) hip add/abd Details verbal review of machines Shuttle Recovery Bilateral Squats Details ball btwn knees Resistance 75# Reps/Time 15 Therapeutic Exercises Standing Exercises lunge Standing Exercise Name stationary Side bilateral Reps/Minutes 10 sidesteps Side bilateral Equipment Used L2 Reps/Minutes 20ft ea squat Side bilateral Reps/Minutes 10 Manual Therapy Treatment Consent Patient gave verbal consent for manual Yes treatment Soft Tissue Mobilization ITB Body Location L Mobilization Type Rolling Intensity/Depth Moderate HS Body Location L lat btwn biceps femoris and semitendonosis Mobilization Type Rolling Intensity/Depth Moderate Joint Mobilizations tibiofemoral Joint L AP w/IR patellofemoral Joint L sup, inf, med Body Position Supine Neuro Re-Education Treatment Coordination Activities jumping Comments squat jump 2x10 focusing on knee positioning jumping jacks working on soft knees and smaller range to dec knee impact 2x10 PT-OP-T Assessment and Plan Start: 01/11/25 11:10 Freq: Status: Active Protocol: Document 01/13/25 09:51 [facility] (Rec: 01/13/25 12:33 [facility] [id number]) Physical Therapy Assessment Goals balance Snf Goal (LTG) Pt will be able to balance on LLE for 30 sec LTG Duration 03/22 strength Short Term Goal (STG) Pt will be indep w/HEP STG Duration / Cup Setter Lockstitch Goal (LTG) Pt will score at least 4+/5 on all BLE MMT to show improved strength and stability to allow for greater ease w/ movement. LTG Duration 03/22 activity Short Term Goal (STG) Pt will be able to get up/down from ground w/o feeling in knees of significant difficulty STG Duration 02/20 Cup Setter Lockstitch Goal (LTG) Pt will be able to go down stairs w/o inc pain and do exercise class w/o inc pain LTG Duration 03/22 Assessment Summary Assessment pt did well with exercises w/ inc cues for form and knee tracking throughout. overall improved follow throught w/ exercises from last session. Physical Therapy Plan Frequency and Duration Frequency of Treatment 1-2x/wk Duration of treatment (weeks) 10 Plan of Care Start Date 01/11/25 Plan of Care End Date 03/22/25 Next Visit Focus/Plan Next Note Type Treatment Note Next Visit Plan review squats and lunges, add standing clamshells and bridges manual for L>R knee tracking
--- NOTE | 2025-01-19 10:34 | PT.OTN ---
Current Diagnoses Unspecified osteoarthritis, unspecified site (01/19/25) Pain in right knee (01/19/25) Pain in left knee (01/19/25) Physical Therapy Treatment Note PT-OP-A Visit Information Start: 01/11/25 11:10 Freq: Status: Active Protocol: Document 01/19/25 09:48 [facility] (Rec: 01/19/25 10:37 [facility] [id number]) Out-Patient Physical Therapy Visit Information Visit Information Visit Type Treatment Note Visit Start Time 09:48 Visit Stop Time 10:34 Visit Number 3 Number of FAMILY LAWYER Visits 1 PT-OP-B Current Condition Start: 01/11/25 11:10 Freq: Status: Active Protocol: Document 01/11/25 11:11 [facility] (Rec: 01/11/25 13:21 [facility] [id number]) Current Condition History of Current Condition Current Complaints B knee pain L>R History of Current Condition 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 recently had xray. She has been doing some red light therapy. mostly lat L knee. In the AM it is crunchy but not painful then it does stop. DId put ice on it when first got the xray. She did maxine and jumping jacks irritate her knees. She has been rowing, treadmill or walking outside, and core exercises. L post knee still constant discomfort but feels less tight. hx of back pain w/spondy, osteoporosis Treatment Goals Patient/Caregiver Goals avoid knee replacement, know what to do at gym PT-OP-C Subjective Start: 01/11/25 11:10 Freq: Status: Active Protocol: Document 01/19/25 09:48 [facility] (Rec: 01/19/25 10:37 [facility] [id number]) OP-PT Subjective Patient Comments Patient Comments Pt reports felt good after last tx. She had to cancel Tues appt due to colonoscopy Mon. She typically does rowing for cardio with mindful on alignment with no pain. She stated can't make Fri appt and feelt prepared to continue on own, next appt her last, unless PT feels needs more appts. PT-OP-D Balance Start: 01/11/25 11:10 Freq: Status: Active Protocol: Document 01/11/25 11:11 [facility] (Rec: 01/11/25 13:21 [facility] [id number]) Balance Tests Single Limb Standing Single Limb- Right >30 sec Single Limb- Left 8 sec PT-OP-K Range of Motion Start: 01/11/25 11:10 Freq: Status: Active Protocol: Document 01/11/25 11:11 [facility] (Rec: 01/11/25 13:21 [facility] [id number]) Knee Goniometric Range of Motion Knee Right Flexion Active (degrees) 142 Extension Active (degrees) 2 Left Flexion Active (degrees) 136 Extension Active (degrees) 4 Comments pain ext and flex PT-OP-L Special Tests Start: 01/11/25 11:10 Freq: Status: Active Protocol: Document 01/11/25 11:11 [facility] (Rec: 01/11/25 13:21 [facility] [id number]) Special Tests Knee Special Tests Misael Comments mild quad tightness B Thessaly Test 5 Degrees Comments neg B Apley's Compression Comments neg B ligamentous testing Comments neg B SLR Comments WNL about 90 deg SLR PT-OP-M Strength Start: 01/11/25 11:10 Freq: Status: Active Protocol: Document 01/11/25 11:11 [facility] (Rec: 01/11/25 13:21 [facility] [id number]) Hip Strength Hip Manual Muscle Testing Right Flexion (L2) 4- Good- Extension (S1) 4- Good- Abduction 4- Good- Adduction 4- Good- External Rotation 4- Good- Internal Rotation 5 Normal Left Flexion (L2) 4- Good- Extension (S1) 4- Good- Abduction 4- Good- Adduction 3+ Fair+ External Rotation 4- Good- Internal Rotation 4- Good- Knee Strength Knee Manual Muscle Testing Right Flexion (S2) 5 Normal Extension (L3) 5 Normal Left Flexion (S2) 4 Good Extension (L3) 4- Good- Ankle/Foot Strength Ankle and Foot Manual Muscle Testing Right Dorsiflexion (L4) 5 Normal Plantarflexion (S1) 5 Normal Left Dorsiflexion (L4) 5 Normal Plantarflexion (S1) 5 Normal Comments 20 heel raises B PT-OP-Q Treatments Start: 01/11/25 11:10 Freq: Status: Active Protocol: Document 01/19/25 09:48 [facility] (Rec: 01/19/25 10:37 [facility] [id number]) Gym Equipment Cable Column (Body Solid) hip add/abd Details ADD, ABD Resistance 3 plates ABD & ADD Reps/Time x15 reps each Shuttle Recovery Bilateral Squats Details ball btwn knees Resistance 75# 3 navy Reps/Time 15 Therapeutic Exercises Sidelying Exercises clamshell Sidelying Exercise Name added to HEP with self pic Side bilateral Equipment Used Tb 2 (10 reps)>#3 point hope ira green Reps/Minutes 15 reps Comments good alignment, form, height for HEP Standing Exercises SL RDL Standing Exercise Name added to HEP with self pic phone Resistance dowel- AROM Equipment Used front mirror for feedback Reps/Minutes 4x5 reps Comments cued posture/scap, knee alignment soft squat Standing Exercise Name added to HEP with self pic phone Side bilateral Resistance AROM> 3>5# DB Equipment Used tap chair behind for alignment , front mirror Reps/Minutes 10 Comments cued knee behind PT-OP-T Assessment and Plan Start: 01/11/25 11:10 Freq: Status: Active Protocol: Document 01/19/25 09:48 [facility] (Rec: 01/19/25 10:37 [facility] [id number]) Physical Therapy Assessment Goals balance Detention Goal (LTG) Pt will be able to balance on LLE for 30 sec LTG Duration 03/22 strength Short Term Goal (STG) Pt will be indep w/HEP STG Duration 02/09 Termite Helper Goal (LTG) Pt will score at least 4+/5 on all BLE MMT to show improved strength and stability to allow for greater ease w/ movement. LTG Duration 03/22 activity Short Term Goal (STG) Pt will be able to get up/down from ground w/o feeling in knees of significant difficulty STG Duration 02/20 Detention Goal (LTG) Pt will be able to go down stairs w/o inc pain and do exercise class w/o inc pain LTG Duration 03/22 Assessment Summary Assessment Pt had good responses to further education use of abd/ add machines and cues for knee alignment during all ther ex for decreased lateral R knee discomfort with more midline corrections cuing with&behind forefoot with allowance into SL. Physical Therapy Plan Frequency and Duration Frequency of Treatment 1-2x/wk Duration of treatment (weeks) 10 Plan of Care Start Date 01/11/25 Plan of Care End Date 03/22/25 Therapeutic Interventions Therapeutic Interventions Balance Training,Gait Training ,Home Exercise Program,Joint Mobilizations,Manual Therapy, Neuromuscular Re-education, Patient/Caregiver Education, Self-Care/Home Management,Soft Tissue Mobilization,Taping, Therapeutic Activities, Therapeutic Exercises Modalities Cold Pack/Ice Massage,Electric Stimulation,Hot Packs, Infrared Therapy,Ultrasound Next Visit Focus/Plan Next Note Type Treatment Note Next Visit Plan Check if progressing or prepared to DC next tx. review SL RDL, squats and lunges, resisted side step, added clamshells, can add bridges. manual for L>R knee tracking
--- NOTE | 2025-01-20 14:53 | PT.OTN ---
Current Diagnoses Unspecified osteoarthritis, unspecified site (01/20/25) Pain in right knee (01/20/25) Pain in left knee (01/20/25) Physical Therapy Treatment Note PT-OP-A Visit Information Start: 01/11/25 11:10 Freq: Status: Active Protocol: Document 01/20/25 13:48 [facility] (Rec: 01/20/25 14:53 [facility] [id number]) Out-Patient Physical Therapy Visit Information Visit Information Visit Type Treatment Note Visit Start Time 13:48 Visit Stop Time 14:28 Visit Number 4 Number of BRAKE COUPLER DINKEY Visits 0 PT-OP-B Current Condition Start: 01/11/25 11:10 Freq: Status: Active Protocol: Document 01/11/25 11:11 [facility] (Rec: 01/11/25 13:21 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 recently had xray. She has been doing some red light therapy. mostly lat L knee. In the AM it is crunchy but not painful then it does stop. DId put ice on it when first got the xray. She did maxine and jumping jacks irritate her knees. She has been rowing, treadmill or walking outside, and core exercises. L post knee still constant discomfort but feels less tight. hx of back pain w/spondy, osteoporosis Treatment Goals Patient/Caregiver Goals avoid knee replacement, know what to do at gym PT-OP-C Subjective Start: 01/11/25 11:10 Freq: Status: Active Protocol: Document 01/20/25 13:48 [facility] (Rec: 01/20/25 14:53 [facility] [id number]) OP-PT Subjective Patient Comments Patient Comments Pt doing rowing, leg press, and hip abd/add machines. Pt feels ready for DC PT-OP-D Balance Start: 01/11/25 11:10 Freq: Status: Active Protocol: Document 01/11/25 11:11 [facility] (Rec: 01/11/25 13:21 [facility] [id number]) Balance Tests Single Limb Standing Single Limb- Right >30 sec Single Limb- Left 8 sec PT-OP-K Range of Motion Start: 01/11/25 11:10 Freq: Status: Active Protocol: Document 01/11/25 11:11 [facility] (Rec: 01/11/25 13:21 [facility] [id number]) Knee Goniometric Range of Motion Knee Right Flexion Active (degrees) 142 Extension Active (degrees) 2 Left Flexion Active (degrees) 136 Extension Active (degrees) 4 Comments pain ext and flex PT-OP-L Special Tests Start: 01/11/25 11:10 Freq: Status: Active Protocol: Document 01/11/25 11:11 [facility] (Rec: 01/11/25 13:21 [facility] [id number]) Special Tests Knee Special Tests Misael Comments mild quad tightness B Thessaly Test 5 Degrees Comments neg B Apley's Compression Comments neg B ligamentous testing Comments neg B SLR Comments WNL about 90 deg SLR PT-OP-M Strength Start: 01/11/25 11:10 Freq: Status: Active Protocol: Document 01/11/25 11:11 [facility] (Rec: 01/11/25 13:21 [facility] [id number]) Hip Strength Hip Manual Muscle Testing Right Flexion (L2) 4- Good- Extension (S1) 4- Good- Abduction 4- Good- Adduction 4- Good- External Rotation 4- Good- Internal Rotation 5 Normal Left Flexion (L2) 4- Good- Extension (S1) 4- Good- Abduction 4- Good- Adduction 3+ Fair+ External Rotation 4- Good- Internal Rotation 4- Good- Knee Strength Knee Manual Muscle Testing Right Flexion (S2) 5 Normal Extension (L3) 5 Normal Left Flexion (S2) 4 Good Extension (L3) 4- Good- Ankle/Foot Strength Ankle and Foot Manual Muscle Testing Right Dorsiflexion (L4) 5 Normal Plantarflexion (S1) 5 Normal Left Dorsiflexion (L4) 5 Normal Plantarflexion (S1) 5 Normal Comments 20 heel raises B PT-OP-Q Treatments Start: 01/11/25 11:10 Freq: Status: Active Protocol: Document 01/20/25 13:48 [facility] (Rec: 01/20/25 14:53 [facility] [id number]) Therapeutic Exercises Standing Exercises Clamshell Side bilateral Equipment Used L2 Reps/Minutes 15 SL RDL Side bilateral Equipment Used 5 lb in opp hand Reps/Minutes 10 ea Comments inc time for set up and cues lunge Standing Exercise Name stationary Side bilateral Reps/Minutes 12 Comments cues and mirror use squat Side bilateral Equipment Used 5lb dumbell Reps/Minutes 2x10 Comments TAP CHAIR BEHIND Self-Care/Home Management Treatment Education Other Education 12 min: edu that MRI would only be considered if she didn 't do well with PT and was considering surgery or further intervention. Edu on importance of avoiding activities that inc pain and working on as full range of motion w/exercises that shc can that is painfree. Discussed DC and pt agreeable and feels indep w/gym program PT-OP-T Assessment and Plan Start: 01/11/25 11:10 Freq: Status: Active Protocol: Document 01/20/25 13:48 [facility] (Rec: 01/20/25 14:53 [facility] [id number]) Physical Therapy Assessment Goals balance Alf Goal (LTG) Pt will be able to balance on LLE for 30 sec LTG Duration pt working on for HEP strength Short Term Goal (STG) Pt will be indep w/HEP STG Duration achieved 01/20 Alf Goal (LTG) Pt will score at least 4+/5 on all BLE MMT to show improved strength and stability to allow for greater ease w/ movement. 01/20-no major change w/only 1 week LTG Duration 03/22 activity Short Term Goal (STG) Pt will be able to get up/down from ground w/o feeling in knees of significant difficulty 01/20-has HEP for this STG Duration 02/20 Consumer Relations Complaint Clerk Goal (LTG) Pt will be able to go down stairs w/o inc pain and do exercise class w/o inc pain 01/20-Has HEP to focus on this LTG Duration 03/22 Assessment Summary Assessment pt indep w/HEP and did well with progression of exercises. She feels good about cont on her own w/HEP and gym program to keep her knees strong at this time. DC to HEP. Physical Therapy Plan Frequency and Duration Frequency of Treatment 1-2x/wk Duration of treatment (weeks) 10 Plan of Care Start Date 01/11/25 Plan of Care End Date 03/22/25 Discharge Physical Therapy Discharge Comments pt indep w/HEP
== END 2025-01-26 15:43 | disposition home or self-care (01) ==
LOC: PHYS 13:45
PROVIDERS: Family Provider Family Medicine; PCP Family Medicine; Referring Provider Family Medicine; Visit Provider Family Medicine
DX: M25.561 Pain in right knee (principal); M25.562 Pain in left knee; M19.90 Unspecified osteoarthritis, unspecified site
CPT/HCPCS: 97110; 97112; 97140; 97162; 97535

== ENCOUNTER → 2025-05-31 11:03 | Outpatient (CLI) | payer OTHER, SELFPAY ==
[2025-05-31 11:48] LABS: COVID-19 CEPHEID 4-PLEX PCR Negative (Negative); Influenza A - CEPHEID Flu A NEGATIVE (NEGATIVE); Influenza B - CEPHEID Flu B NEGATIVE (NEGATIVE)
== END ==
LOC: LAB 11:04
PROVIDERS: PCP Family Medicine; Visit Provider Family Medicine
DX: R05.1 Acute cough (principal)
CPT/HCPCS: 87637

== ENCOUNTER → 2025-06-08 07:30 | Outpatient (CLI) | payer OTHER, SELFPAY ==
[2025-06-08 07:50] LABS: Add Manual Diff / Slide Review NO; Hematocrit 40.2 % (36-46); Hemoglobin 13.6 g/dL (12.0-16.0); Lymphocytes Absolute Auto 1800 /uL (1100-4500); Mean Corpuscular HGB Conc 33.9 % (30-36); Mean Corpuscular Hemoglobin 32.1 PG (26-34); Mean Corpuscular Volume 94.8 fL (80-100); Platelet Count 314 X10^3/uL (150-400)
[2025-06-08 08:07] LABS: Alanine Aminotransferase 22 IU/L (<35); Albumin 4.3 g/dL (3.5-5.0); Albumin Globulin Ratio 1.4 (1.0-2.8); Alkaline Phosphatase 74 U/L (38-126); Blood Urea Nitrogen 11 mg/dL (7-17); Calcium 9.3 mg/dL (8.4-10.2); Carbon Dioxide 26 mmol/L (22-32); Chloride 105 mmol/L (98-107); Cholesterol 217 mg/dL (140-199); Estimated Glomerular Filt Rate > 60 mL/min (>60); Globulin 3.0 g/dL (1.7-4.1); Glucose 106 mg/dL (70-99); HDL Cholesterol 100 mg/dL (40-60); HEMOLYSIS < 15 (0-50); Potassium 4.4 mmol/L (3.4-5.1); Sodium 137 mmol/L (137-145); Total Protein 7.3 g/dL (6.3-8.2); Triglycerides 76 mg/dL (35-150)
[2025-06-08 08:39] LABS: TSH w/ Reflex to FT4 2.42 uIU/mL (0.47-4.68)
== END ==
PROVIDERS: PCP Family Medicine; Referring Provider Family Medicine; Visit Provider Family Medicine
DX: E78.5 Hyperlipidemia, unspecified (principal); M81.0 Age-related osteoporosis without current pathological fracture; Z00.00 Encounter for general adult medical examination without abnormal findings; I65.22 Occlusion and stenosis of left carotid artery; Z82.49 Family history of ischemic heart disease and other diseases of the circulatory system
CPT/HCPCS: 36415; 80053; 80061; 82043; 82570; 84443; 85025

== ENCOUNTER → 2025-10-11 11:30 | Outpatient (CLI) | payer OTHER, SELFPAY ==
--- NOTE | 2025-10-11 11:32 | DI.RAD.S_ITS ---
PROCEDURE: XR KUB INDICATIONS: kidney stones TECHNIQUE: One view of the abdomen acquired. COMPARISON: [facility], CR, XR KUB, 09/28/2024, 8:00. FINDINGS: Surgical changes and devices: None. Bowel: Moderate fecal loading; otherwise bowel gas pattern is normal. Soft tissues: No suspicious abdominal calcifications. Visualized solid organ contours appear normal in size. Bones: No suspicious bony lesions. IMPRESSION: No definitive radiopaque renal, ureteral or bladder calculi. Moderate fecal loading. Dictated by: Jose Greenfield [facility] Interpreted: Jihan Yarbrough MD on 10/11/2025 at 12:30 Transcribed by: TAMI on 10/11/2025 at 12:31 Approved by: Jihan Yarbrough M.D. on 10/11/2025 at 16:06
== END ==
PROVIDERS: PCP Family Medicine; Referring Provider Urology; Visit Provider Urology
DX: N20.0 Calculus of kidney (principal)
CPT/HCPCS: 74018